=== PATIENT | female | born 1970 | race Two or more races ===

== ENCOUNTER 2021-08-26 09:56 | Emergency (ER) | payer MEDICAID, SELFPAY ==
[2021-08-26 10:11] VITALS: BP 196/94; PULSE 78; RESP 18; TEMP 37.1; O2SAT 99; BMI 36.1
[2021-08-26] MEDS: amLODIPine Besylate 5 MG TABLET PO (10:47)
--- NOTE | 2021-08-26 10:58 | ED.GENADULT ---
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 Patient admits to missing her dose of amlodipine this morning. Denies headache, lightheadedness/ dizziness, CP /SOB, vision changes, weakness. denies vision change/ loss, contacts or glasses wearing, I drainage. Admits was prescribed antibiotic eyedrops for eye Onset (ago): day(s) Related Data Allergies Allergy/AdvReac Type Severity Reaction Status Date / Time No Known Allergies Allergy Verified 08/26/21 10:10 Review of Systems Review of Systems: Constitutional: No Fever, No Chills, No Fatigue, No Malaise ENT/Mouth: No Ear Pain, No Nasal Congestion, No sore throat, No Rhinorrhea, No Swallowing Difficulty Eyes: + Eye Pain, + Swelling, No Redness, No Foreign Body, No Discharge, No Vision Changes Cardiovascular: No Chest Pain, No SOB, No Dyspnea on Exertion, No Orthopnea, No Edema, No Palpitations Respiratory: No Cough, No Sputum, No Dyspnea Gastrointestinal: No Nausea, No Vomiting, No Abdominal pain Genitourinary:No Dysuria, No Urgency, No Flank Pain Musculoskeletal: No joint pain, No Myalgias, No Joint Swelling Skin: No Skin Lesions, No rash Neuro: No Weakness, No Numbness, No Paresthesias, No Loss of Consciousness, No Dizziness, No Headache Yes all other systems are reviewed and are negative [facility] Past Medical History Attestation statement: The following information was validated with the patient. Social History Social History Alcohol intake: never Patient Tobacco Use Status: Never used Tobacco Use of substances other than those prescribed or required for medical reasons: No Advance Directives: No Advance Directives Information Provided: No Physical Exam ED Vital Signs: Vital Signs - 24 hr 08/26/21 10:11 Temperature 98.7 F Pulse Rate 78 Respiratory Rate 18 Blood Pressure 196/94 H Pulse Oximetry 99 BMI result Body Mass Index 36.1 Const General: cooperative, healthy appearing and no acute distress Orientation/consciousness: patient oriented x3 Limitations: no limitations HENMT Head: Yes normal to inspection and Yes atraumatic Ears: hearing grossly normal bilaterally General nose exam: Normal external nose present Face and sinus: Yes normal facial exam Eyes Other: + Left lower eyelid hordeolum with mild swelling and tenderness to palpation. No erythema/evidence of cellulitis. EOMs intact without pain. No eye drainage General: appearance normal, both eyes and all related structures Periorbital: periorbital findings normal Conjunctivae: conjunctivae normal Sclerae: sclerae normal Corneas: corneas normal Pupils: Equal, round and reactive pupils present EOM: EOMs intact bilaterally Direct Ophthalmoscopy: normal light reflex and no photophobia Neck Neck: Yes normal visual inspection and Yes no meningeal signs Resp Effort & Inspection: normal respiratory effort and no respiratory distress Auscultation: clear to auscultation bilaterally, no rales, no rhonchi and no wheezes Cardio Rate: regular rate Heart sounds: S1 normal heart sound present and S2 normal heart sound present GI Inspection: Yes normal to inspection Palpation (GI): Soft to palpation, nontender, no guarding and not rigid Skin Rashes: no rashes Wounds: no wounds Neuro General: patient oriented x3, gait normal, tone normal, moves all extremities, no meningeal signs, no focal motor deficits and CN's II-XI intact bilaterally Cranial nerves: Yes Equal, round and reactive pupils present Gait exam (Neuro): Normal gait present Extrem General: Yes normal to inspection Course Course Course Narrative: - patient given her home dose of p.o. Norvasc, blood pressure mildly improved to 188/98. Patient remains asymptomatic. Reports increased stress pertaining to father. Discussed with patient with data specialist needed close follow-up with PCP for repeat blood pressures consecutively for the next 3 days. 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 on exam hypertensive 196/94, asymptomatic without CP/headache or weakness, left eye hordeolum noted without evidence of superinfection. Low concern for hypertensive urgency / emergency, will give patient home dose of amlodipine heard patient was also are any prescribed antibiotic eyedrops. No evidence of periorbital or orbital cellulitis Medical Records Medical records reviewed: Yes I reviewed the patient's medical records. Lab Data Lab results reviewed: Yes I reviewed the patient's lab results. Discharge Plan Discharge Clinical Impression: Hypertension Patient Disposition: Home, Self-Care Instructions: Heart Healthy Diet (DC), Hypertension (ED) Additional Instructions: you need to take her blood pressure medication. Monitor blood pressure closely. Please follow-up with her doctor, however blood pressure repeated for the next 3 days. If he developed headache, chest pain, lightheadedness/ dizziness or weakness please return to the ED usted necesita shailesh dixon medicamento para la presi?n arterial. Controle la presi?n arterial de cerca. Shama un seguimiento con dixon m?dico, sin embargo, la presi?n arterial se repiti? dov los pr?ximos 3 d?as. Si desarroll? dolor de issac, dolor en el pecho, aturdimiento/mareos o debilidad, regrese al servicio de urgencias. Referrals: Physician,Fadumo J [Primary Care Provider] - 2 days
[2021-08-26 12:42] VITALS: BP 188/98; PULSE 73; RESP 18; O2SAT 98
== END 2021-08-26 13:23 | disposition home or self-care (01) ==
PROVIDERS: Emergency Provider Emergency Medicine
DX: R79.89 Other specified abnormal findings of blood chemistry (principal); I10 Essential (primary) hypertension; Z79.899 Other long term (current) drug therapy
CPT/HCPCS: 99283; 99284

== ENCOUNTER 2021-09-19 11:11 | Outpatient (REF) | payer MEDICAID, SELFPAY ==
--- NOTE | ~2021-09-19 | MM_ITS ---
EXAMINATION: MM SCREENING DIGITAL BREAST TOMOSYNTHESIS, BILATERAL CLINICAL INFORMATION: Screening. Asymptomatic. The lifetime risk of breast cancer based on the Tyrer-Cuzick Model is 5.4%. COMPARISON: Mammography: February 18, 2017 and studies dating back to March 27, 2011 TECHNIQUE: Digital breast tomosynthesis is performed in both the craniocaudal and mediolateral oblique views along with computer-aided detection (CAD). Synthesized 2D images are generated from the tomosynthesis. FINDINGS: There are scattered areas of fibroglandular density (ACR BI-RADS breast composition Category b). There are no significant masses, abnormal calcifications, or other abnormalities. MM/MM tomosynthesis screening BI IMPRESSION: There are no significant changes from prior study. ASSESSMENT: BI-RADS 1: Negative RECOMMENDATION: Routine annual mammography screening. This patient's information was entered into a reminder system with a target due date for their next mammogram.
== END 2021-09-19 11:12 | disposition home or self-care (01) ==
LOC: HO.MAMMO 11:11
PROVIDERS: PCP Registered Nurse Community Health; Visit Provider Registered Nurse Community Health
DX: Z12.31 Encounter for screening mammogram for malignant neoplasm of breast (principal)
CPT/HCPCS: 77063; 77067

== ENCOUNTER 2022-02-03 10:51 | Outpatient (REF) | payer MEDICAID, SELFPAY ==
[2022-02-04 13:29] LABS: H Pylori Breath Test Positive (Negative)
== END 2022-02-03 10:52 | disposition home or self-care (01) ==
LOC: CF 10:51
PROVIDERS: PCP Registered Nurse Community Health; Referring Provider Registered Nurse Community Health; Visit Provider Nurse Practitioner Family
DX: K59.00 Constipation, unspecified (principal); K21.9 Gastro-esophageal reflux disease without esophagitis; K59.04 Chronic idiopathic constipation; R10.9 Unspecified abdominal pain
CPT/HCPCS: 36415; 83013; 99202

== ENCOUNTER 2023-01-13 12:20 | Outpatient (REF) | payer MEDICAID, SELFPAY ==
[2023-01-13 14:16] LABS: Creatinine Urine 81.07 mg/dL; Microalbum/Creatinine Ratio Ur 9.8 ug/mg cr (<30)
[2023-01-13 14:44] LABS: CT PCR NOT DETECTED (Not Detect.); NG PCR NOT DETECTED (Not Detect.)
[2023-01-14 04:07] LABS: Syphilis Screen Nonreactive (Nonreactive)
[2023-01-14 05:21] LABS: HBsAGNum1 0.35 S/CO (0.00-0.99); HIV AB/AG Nonreactive (Nonreactive); HIV Num 1 0.07 S/CO (0.00-0.99); Hepatitis A Antibody IgM 0.14 Index (0-0.79); Hepatitis B Core Antibody Nonreactive (Nonreactive); Hepatitis B Surface Antigen Negative (Negative); ~HepC Num1 0.08 S/CO (0.00-0.79); ~Hepatitis A Antibody IgM Nonreactive (Nonreactive); ~Hepatitis B Surface Antibody REACTIVE (Nonreactive); ~Hepatitis C Antibody Nonreactive (Nonreactive)
== END 2023-01-13 12:21 | disposition home or self-care (01) ==
LOC: HO.HHCL 12:20
PROVIDERS: Visit Provider Registered Nurse
DX: Z11.3 Encounter for screening for infections with a predominantly sexual mode of transmission (principal); Z11.4 Encounter for screening for human immunodeficiency virus [HIV]; E11.65 Type 2 diabetes mellitus with hyperglycemia
CPT/HCPCS: 0353U; 82043; 82570; 86704; 86706; 86709; 86780; 86803; 87340; 87389

== ENCOUNTER 2023-02-01 18:55 | Outpatient (REF) | payer MEDICAID, SELFPAY ==
[2023-02-04 23:43] LABS: HPV mRNA E6/E7 rflx Not Detected (Not Detected)
== END 2023-02-01 18:56 | disposition home or self-care (01) ==
LOC: HO.HHCLNP 18:55
PROVIDERS: Visit Provider Registered Nurse
DX: Z12.4 Encounter for screening for malignant neoplasm of cervix (principal)
CPT/HCPCS: 87624; 88142

== ENCOUNTER 2023-11-24 11:16 | Outpatient (REF) | payer MEDICAID, SELFPAY ==
[2023-11-24 14:14] LABS: Alanine Aminotransferase 20 U/L (0-31); Albumin Level 4.3 g/dL (3.5-5.0); Alkaline Phosphatase 92 U/L (39-117); Anion Gap 10 (12-20); Aspartate Amino Transferase 16 U/L (5-31); Bilirubin Total 0.2 mg/dL (0.0-1.0); Blood Urea Nitrogen 20 mg/dL (9-16); Calcium 10.2 mg/dL (8.4-10.2); Carbon Dioxide 29 mmol/L (22-29); Chloride 104 mmol/L (96-108); Cholesterol 208 mg/dL (<200); Estimated Glomerular Filt Rate > 60; Glucose Random 83 mg/dL (60-115); HDL Cholesterol 37 mg/dL (>40); LDL Cholesterol Calculated 98 mg/dL (<100); Potassium 3.6 mmol/L (3.3-5.1); Sodium 139 mmol/L (135-145); Triglycerides 367 mg/dL (<150)
[2023-11-24 15:28] LABS: Reflex LDLD? No
== END 2023-11-24 11:17 | disposition home or self-care (01) ==
LOC: HO.HHCL 11:16
PROVIDERS: Visit Provider Internal Medicine
DX: Z00.00 Encounter for general adult medical examination without abnormal findings (principal)
CPT/HCPCS: 36415; 80053; 80061

== ENCOUNTER 2023-11-26 11:47 | Outpatient (REF) | payer MEDICAID, SELFPAY ==
--- NOTE | ~2023-11-26 | MM_ITS ---
EXAMINATION: MM SCREENING DIGITAL BREAST TOMOSYNTHESIS, BILATERAL CLINICAL INFORMATION: Screening. Asymptomatic. COMPARISON: Mammography: This study is compared with prior exams dating back to 2017. TECHNIQUE: Digital breast tomosynthesis is performed in both the craniocaudal and mediolateral oblique views along with computer-aided detection (CAD). Direct 2-D images of each breast in the standard screening projections are also obtained. FINDINGS: There are scattered areas of fibroglandular density (ACR BI-RADS breast composition Category b). There are no significant masses, abnormal calcifications, or other abnormalities. There are bilateral benign calcifications. MM/MM tomosynthesis screening BI IMPRESSION: No mammographic evidence of malignancy. ASSESSMENT: BI-RADS BI-RADS 2 - Benign Findings RECOMMENDATION: Routine annual mammography screening. 1 year F/U This examination should not preclude the clinical evaluation of a suspicious palpable abnormality. This patient's information was entered into a reminder system with a target due date for their next mammogram. Electronically signed by: Chyna Duarte MD 12/23/2023 12:20 PM EDT
== END 2023-11-26 11:48 | disposition home or self-care (01) ==
LOC: HO.MAMMO 11:47
PROVIDERS: PCP Registered Nurse Community Health; Visit Provider Internal Medicine
DX: Z12.31 Encounter for screening mammogram for malignant neoplasm of breast (principal)
CPT/HCPCS: 77063; 77067

== ENCOUNTER → 2023-11-26 12:15 | Outpatient (BNV) | payer MEDICAID, SELFPAY | PROVIDERS: PCP Registered Nurse Community Health; Visit Provider Radiology Diagnostic Radiology | DX: Z12.31 Encounter for screening mammogram for malignant neoplasm of breast (principal) | CPT/HCPCS: 77063; 77067 ==

== ENCOUNTER 2024-06-05 10:39 | Emergency (ER) | payer MEDICAID, SELFPAY ==
--- NOTE | ~2024-06-05 | US_ITS ---
CLINICAL HISTORY: RUQ pain Limited abdominal ultrasound Comparison: None Findings: The liver is normal in size, measuring 14.3 cm in length. Normal echogenicity without focal lesions. Hepatopetal flow is seen within the portal vein. The common bile duct is normal in diameter, measuring 0.3 cm. No cholelithiasis. There are tiny gallbladder polyps. No wall thickening or pericholecystic fluid. Negative sonographic Stone sign. The right kidney is normal in echogenicity and size, measuring 9.7 cm in length. Unremarkable limited evaluation of the pancreas. Impression: Negative for acute cholecystitis. This document has been electronically signed by: Jennifer Caraballo MD on 06/05/2024 14:36:44
[2024-06-05 11:07] VITALS: BP 146/79; PULSE 89; RESP 18; TEMP 36.6; O2SAT 9; BMI 34.6
--- NOTE | 2024-06-05 11:08 | ED.ABDPAIN ---
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 She then developed epigastric abd pain this AM and n/v x 1. She denies diarrhea. She has no sick contacts, no travel, no abx use. She denies CP/SOB. She has had palpitations before but she was worried about the abdominal pain and vomiting this AM. She did not take her GERD medication this AM. MD elicited complaint: abdominal pain (palpitations) Pertinent past history: other (GERD) Onset (ago): day(s) (last night) Pain Consistency: intermittent Location: epigastric Severity: moderate Quality: aching Radiation: none Migration to: no migration Exacerbating factors: eating Relieving factors: nothing Context: other (also had palpitations last night) Associated symptoms: nausea and vomiting Related Data Home Medications ?Medication ?Instructions ?Recorded ?Confirmed amlodipine 10 mg tablet 10 mg PO DAILY 02/03/22 atorvastatin 40 mg tablet 40 mg PO DAILY 02/03/22 cholecalciferol (vitamin D3) 25 25 mcg PO DAILY 02/03/22 mcg (1,000 unit) capsule (Vitamin D3) hydrochlorothiazide 25 mg tablet 25 mg PO DAILY 02/03/22 losartan 100 mg tablet 100 mg PO DAILY 02/03/22 metformin 500 mg tablet,extended 500 mg PO BID 02/03/22 release 24 hr Previous Rx's ?Medication ?Instructions ?Recorded docusate sodium 100 mg capsule 100 mg PO BEDTIME #90 caps 02/03/22 sennosides 8.6 mg tablet (Natural 8.6 mg PO BEDTIME constipation #90 02/03/22 Senna Laxative) tabs bismuth subsalicylate 262 mg 2 tab PO QID 14 days #112 tabs 02/06/22 chewable tablet metronidazole 500 mg tablet 1,000 mg (2 x 500 mg) PO BID #56 02/06/22 tabs tetracycline 500 mg capsule 1,000 mg (2 x 500 mg) PO Q12H #56 02/06/22 caps omeprazole 20 mg capsule,delayed 20 mg PO BID #180 caps 11/15/23 release ondansetron 4 mg disintegrating 4 mg PO Q8H PRN nausea and 06/05/24 tablet vomiting #20 tabs Allergies Allergy/AdvReac Type Severity Reaction Status Date / Time No Known Allergies Allergy Verified 06/05/24 11:08 Review of Systems Review of Systems Constitutional : No Weight loss, No Fever, No Chills ENT/Mouth : No sore throat, No Rhinorrhea Eyes: No Swelling, No Redness Cardiovascular : No Chest Pain, No SOB, No edema, pos palpitations Respiratory : No Cough, No Sputum, No Wheezing Gastrointestinal : Positive Nausea, Positive Vomiting, no Diarrhea, positive abdominal Pain, No Hematochezia, No Melena Genitourinary : No Dysuria, No Urinary Frequency, No Hematuria, No Urgency Musculoskeletal : No joint pain, No Myalgias, No Joint Swelling Skin : No Skin Lesions, No rash Neuro : No Weakness, No Numbness, No Dizziness, No Headache All other systems reviewed and are negative. [facility] Past Medical History Attestation statement: The following information was validated with the patient. Source: old records reviewed Medical History Diabetes mellitus HTN (hypertension) Hyperlipidemia Anemia GERD (gastroesophageal reflux disease) Surgical History Hx of section Family History Family History (Updated 02/03/22 @ 11:02 by Zi Dorado) Father Diabetes HTN (hypertension) High cholesterol Social History Social History Household Members: Significant Other Alcohol intake: never Patient Tobacco Use Status: Never used Tobacco Advance Directives: No Advance Directives Information Provided: Yes Do you have a plan to hurt others: No Plan Physical Exam ED Vital Signs: Vital Signs - 24 hr 06/05/24 11:07 Temperature 98 F Pulse Rate 89 Respiratory Rate 18 Blood Pressure 146/79 H Pulse Oximetry 9 L BMI result Body Mass Index 34.6 Appearance: Alert. Oriented X3. No acute distress. Eyes: Pupils equal, round and reactive to light. ENT: Pharynx normal. Neck: Normal inspection. Neck supple. CVS: Normal heart rate and rhythm. Pulses normal. Respiratory: No respiratory distress. Breath sounds normal. Abdomen: Soft and very mild RUQ ttp no rebound or guarding Skin: Skin warm and dry. Normal skin color. Extremities: No lower extremity edema. Neuro: Oriented X 3. No motor deficit. No sensory deficit. CN2-12 intact Course Course Course Narrative: This is an RME: Additional HPI, ROS, PE not included below will be deferred to primary provider. RME assessment and note performed by: Bernie Hernández PA-C This is a 54-year-old female, with a history of GERD, hyperlipidemia, anemia, and diabetes, who presents emergency department for evaluation of palpitations and epigastric pain since yesterday. Patient also reports nausea and vomiting, unable to keep anything down secondary to the nausea and vomiting. Also reporting a burning epigastric like pain. Plan: Labs, EKG, viral swabs, UA, further ER evaluation needed. Medical Decision Making Medical Decision Making [facility] Narrative: 54 yo woman with PMH of DM, HTN, HLD, anemia, GERD here with c/o palpitations last night while talking to mom then developed epigastric pain she has no sig ttp on exam given her age and risk factors will obtain EKG, troponin, given tachycardia I have ordered ddimer. She is not toxic appearing and is well appearing. She has no RLQ pain on exam. Differential Diagnosis Differential Diagnoses: The differential diagnosis associated with the presentation includes gastritis, GERD, biliary colic, palpitations Admission/Observation Consideration of admission/observation: Escalation of care including admission/observation considered mild bump in LFTs normal US negative trop, EKG unchanged, TSH normal ddimer negative mild bump in WBC count but could be due to elevated WBC count Lab Data [facility] Lab Attestation statement: I reviewed the patient's lab results. 06/05/24 11:32 06/05/24 11:32 Labs: Lab Results 06/05/24 06/05/24 Range/Units 11:32 14:06 WBC 13.4 H (4.8-10.8) X10*3/uL RBC 6.02 H (4.20-5.50) X10*6/uL Hgb 13.1 (12.0-16.0) g/dl Hct 42.3 (37.0-47.0) % MCV 70.3 L (80.0-98.0) fL MCH 21.8 L (27.0-33.0) pg MCHC 31.0 (31.0-35.0) g/dl RDW 16.2 H (11.0-16.0) % Plt Count 414 H (160-400) X10*3/uL MPV 9.2 L (9.4-12.3) fL Immature Gran % (Auto) 0.7 H (0.0-0.4) % Neut % (Auto) 84.1 H (45-73) % Lymph % (Auto) 8.8 L (20-40) % Rooks % (Auto) 5.4 (2-11) % Eos % (Auto) 0.7 (0-4) % Baso % (Auto) 0.3 (0-2) % Lymph # (Auto) 1.2 (1.2-4.9) X10*3/uL Rooks # (Auto) 0.7 (0.1-1.2) X10*3/uL Eos # (Auto) 0.1 (0.0-0.4) X10*3/uL Baso # (Auto) 0.0 (0.0-0.2) X10*3/uL Abs Immat Gran (auto) 0.10 H (0.00-0.03) X10*3/uL Absolute Neuts (auto) 11.2 H (2.0-8.3) x10*3/uL Absolute Nucleated RBC 0.000 (0.0-0.012) X10*3/uL Nucleated RBC % (auto) 0.0 (0.0-0.2) /100WBC D-Dimer High Sensitivty < 150 NG/ML Sodium 137 (135-145) mmol/L Potassium 4.0 (3.3-5.1) mmol/L Chloride 104 (96-108) mmol/L Carbon Dioxide 22 (22-29) mmol/L Anion Gap 15 (12-20) BUN 20 H (9-16) mg/dL Creatinine 0.92 (0.5-1.4) mg/dL Estim Creat Clear Calc 58.2 Estimated GFR > 60 Random Glucose 121 H (60-115) mg/dL Calcium 9.8 (8.4-10.2) mg/dL Magnesium 1.9 (1.6-2.6) mg/dL Total Bilirubin 0.3 (0.0-1.0) mg/dL Direct Bilirubin 0.1 (0.0-0.5) mg/dL AST 38 H (5-31) U/L ALT 34 H (0-31) U/L Alkaline Phosphatase 114 (39-117) U/L Troponin I High Sens < 2.7 (<3.5-17.0) ng/L Total Protein 8.9 H (6.5-8.0) g/dL Albumin 4.3 (3.5-5.0) g/dL Lipase 19 (8-78) U/L TSH 3.10 (0.32-4.0) uIU/mL Beta HCG, Quant 3 mIU/mL Influenza Type A (PCR) NEGATIVE (Negative) Influenza Type B (PCR) NEGATIVE (Negative) RSV RNA Qual (PCR) NEGATIVE (Negative) SARS-CoV-2 RNA (RT-PCR) NEGATIVE (Negative) Independent Interpretation I performed an independent interpretation of an: EKG and Ultrasound (no biliary colic) Interpretation: Rate: 85 Rhythm: NSR [place]: left Normal P waves. Normal ANAHI. Normal QRS complex. ST T wave : inverted t waves V1 and V1, no GALINA qTC: 456 prior studies: no acute ischemia no sig change from 2021 The study has been interpreted contemporaneously by me. . Radiology Impression Discussion of test interpretation with radiology: I have reviewed the radiologist's reading. External Record Review External record reviewed: Outpatient record Discharge Plan Discharge Clinical Impression: Heart palpitations Gastritis Qualifiers: Gastritis type: unspecified gastritis Chronicity: acute Gastritis bleeding: without bleeding Qualified Code(s): K29.00 - Acute gastritis without bleeding Patient Disposition: Home, Self-Care Instructions: Heart Palpitations (ED), Gastritis (ED) Additional Instructions: EKG unchanged labs reassuring negative blood clot test US no acute findings - mild bump in one liver enzyme can repeat with your doctor in one week negative for flu, covid, rsv return for any worsening symptoms or concerns stay hydrated and rest Prescriptions: New ondansetron 4 mg tablet,disintegrating 4 mg PO Q8H PRN (Reason: nausea and vomiting) Qty: 20 0RF No Action bismuth subsalicylate 262 mg tablet,chewable 2 tab PO QID 14 Days Qty: 112 0RF metronidazole 500 mg tablet 1,000 mg PO BID Qty: 56 0RF tetracycline 500 mg capsule 1,000 mg PO Q12H Qty: 56 0RF omeprazole 20 mg capsule,delayed release(DR/EC) 20 mg PO BID Qty: 180 2RF cholecalciferol (vitamin D3) [Vitamin D3] 25 mcg (1,000 unit) capsule 25 mcg PO DAILY metformin 500 mg tablet extended release 24 hr 500 mg PO BID losartan 100 mg tablet 100 mg PO DAILY hydrochlorothiazide 25 mg tablet 25 mg PO DAILY amlodipine 10 mg tablet 10 mg PO DAILY atorvastatin 40 mg tablet 40 mg PO DAILY docusate sodium 100 mg capsule 100 mg PO BEDTIME Qty: 90 3RF sennosides [Natural Senna Laxative] 8.6 mg tablet 8.6 mg PO BEDTIME Qty: 90 3RF Print Language: Eritrean
--- NOTE | 2024-06-05 11:09 | ECG_ITS ---
Test Reason : EPIGASTRIC/PALPITATIONS Blood Pressure : */* mmHG Vent. Rate : 85 BPM Atrial Rate : 85 BPM P-R Int : 160 ms QRS Dur : 80 ms QT Int : 384 ms P-R-T Axes : 31 -13 31 degrees QTcB Int : 456 ms Normal sinus rhythm Possible Anterolateral infarct , age undetermined Abnormal ECG When compared with ECG of 28-Jan-2009 18:56, Poor R wave progression across anterior leads Referred By: Bernie Hernández Electronically Signed By: VIVIANA TOPETE
[2024-06-05 11:36] LABS: MANUAL DIFF FLAG NO
[2024-06-05 11:37] LABS: Basophils Percent Auto 0.3 % (0-2); Eosinophils Absolute Auto 0.1 X10*3/uL (0.0-0.4); Eosinophils Percent Auto 0.7 % (0-4); Hematocrit 42.3 % (37.0-47.0); Hemoglobin 13.1 g/dl (12.0-16.0); Imm Gran Pct Auto 0.7 % (0.0-0.4); Lymphocytes Absolute Auto 1.2 X10*3/uL (1.2-4.9); Lymphocytes Percent Auto 8.8 % (20-40); Mean Corpuscular Hemoglobin 21.8 pg (27.0-33.0); Mean Corpuscular Volume 70.3 fL (80.0-98.0); Mean Platelet Volume 9.2 fL (9.4-12.3); Monocytes Absolute Auto 0.7 X10*3/uL (0.1-1.2); Monocytes Percent Auto 5.4 % (2-11); Neutrophils Absolute Auto 11.2 x10*3/uL (2.0-8.3); Neutrophils Percent Auto 84.1 % (45-73); Platelet Count 414 X10*3/uL (160-400); Red Blood Count 6.02 X10*6/uL (4.20-5.50); Red Cell Distribution Width 16.2 % (11.0-16.0); White Blood Count 13.4 X10*3/uL (4.8-10.8)
[2024-06-05 12:00] LABS: Troponin-I High Sensitivity < 2.7 ng/L (<3.5-17.0)
[2024-06-05 12:01] LABS: Alanine Aminotransferase 34 U/L (0-31); Albumin Level 4.3 g/dL (3.5-5.0); Alkaline Phosphatase 114 U/L (39-117); Anion Gap 15 (12-20); Aspartate Amino Transferase 38 U/L (5-31); Bilirubin Direct 0.1 mg/dL (0.0-0.5); Bilirubin Total 0.3 mg/dL (0.0-1.0); Blood Urea Nitrogen 20 mg/dL (9-16); Calcium 9.8 mg/dL (8.4-10.2); Carbon Dioxide 22 mmol/L (22-29); Chloride 104 mmol/L (96-108); Creatinine Clr Calc Pharmacy 58.2; Estimated Glomerular Filt Rate > 60; Glucose Random 121 mg/dL (60-115); HCG Quantitative 3 mIU/mL; Lipase 19 U/L (8-78); Magnesium 1.9 mg/dL (1.6-2.6); Sodium 137 mmol/L (135-145); Total Protein 8.9 g/dL (6.5-8.0)
[2024-06-05 12:30] LABS: Influenza A PCR NEGATIVE (Negative); Influenza B PCR NEGATIVE (Negative); Resp Syncy Virus RNA Qual PCR NEGATIVE (Negative); SARS COV2 PCR INHOUSE NEGATIVE (Negative)
[2024-06-05 14:22] LABS: D Dimer High Sensitivity < 150 NG/ML
[2024-06-05 15:12] VITALS: BP 133/87; PULSE 100; RESP 13; TEMP 36.7; O2SAT 98
[2024-06-05] MEDS: Lidocaine HCl Viscous 2 % 15 ML SOLUTION MUCOUS MEM (15:28)
[2024-06-05] MEDS: Magnesium Hydrox/Alum Hydrox 30 ML ORAL.SUSP 15 ML PO (15:28)
[2024-06-05] MEDS: Famotidine 20 MG TABLET PO (15:28)
[2024-06-05] MEDS: Ondansetron ODT 4 MG TAB.RAPDIS TRANSLINGU (15:28)
[2024-06-05 16:25] VITALS: BP 133/87; PULSE 100; RESP 13; TEMP 36.7; O2SAT 98
== END 2024-06-05 16:26 | disposition home or self-care (01) ==
PROVIDERS: Physician Assistant Medical; Emergency Provider Emergency Medicine; PCP Internal Medicine
DX: R00.2 Palpitations (principal); K29.00 Acute gastritis without bleeding; R10.13 Epigastric pain; Z79.899 Other long term (current) drug therapy; Z03.818 Encounter for observation for suspected exposure to other biological agents ruled out
CPT/HCPCS: 0241U; 36415; 76705; 80048; 80076; 83690; 83735; 84443; 84484; 84702; 85025; 85379; 93005; 99284

== ENCOUNTER → 2024-06-05 11:09 | Outpatient (BNV) | payer MEDICAID, SELFPAY | PROVIDERS: Emergency Provider Emergency Medicine; PCP Internal Medicine; Visit Provider Internal Medicine | DX: R94.31 Abnormal electrocardiogram [ECG] [EKG] (principal); R00.2 Palpitations | CPT/HCPCS: 93010 ==

== ENCOUNTER → 2024-06-05 13:20 | Outpatient (BNV) | payer MEDICAID, SELFPAY | PROVIDERS: Emergency Provider Emergency Medicine; PCP Internal Medicine; Visit Provider Radiology Diagnostic Radiology | DX: R10.11 Right upper quadrant pain (principal) | CPT/HCPCS: 76705 ==

== ENCOUNTER 2024-06-21 09:31 | Outpatient (REF) | payer MEDICAID, SELFPAY ==
[2024-06-21 12:14] LABS: Alanine Aminotransferase 23 U/L (0-31); Albumin Level 4.3 g/dL (3.5-5.0); Alkaline Phosphatase 103 U/L (39-117); Anion Gap 13 (12-20); Aspartate Amino Transferase 20 U/L (5-31); Bilirubin Total 0.3 mg/dL (0.0-1.0); Blood Urea Nitrogen 20 mg/dL (9-16); Calcium 10.2 mg/dL (8.4-10.2); Carbon Dioxide 27 mmol/L (22-29); Chloride 102 mmol/L (96-108); Cholesterol 188 mg/dL (<200); Estimated Glomerular Filt Rate > 60; Glucose Random 107 mg/dL (60-115); HDL Cholesterol 37 mg/dL (>40); LDL Cholesterol Calculated 88 mg/dL (<100); Potassium 3.6 mmol/L (3.3-5.1); Sodium 138 mmol/L (135-145); Total Protein 8.7 g/dL (6.5-8.0); Triglycerides 317 mg/dL (<150)
[2024-06-21 12:15] LABS: Creatinine Urine 118.05 mg/dL; Microalbum/Creatinine Ratio Ur 11.8 ug/mg cr (<30)
== END 2024-06-21 09:32 | disposition home or self-care (01) ==
LOC: HO.HHCL 09:31
PROVIDERS: Visit Provider Registered Nurse
DX: E11.65 Type 2 diabetes mellitus with hyperglycemia (principal)
CPT/HCPCS: 36415; 80053; 80061; 82043; 82570

== ENCOUNTER 2024-07-05 08:52 | Outpatient (AMB) | payer MEDICAID, SELFPAY ==
[2024-07-05 08:56] VITALS: BP 130/84; PULSE 99; BMI 35.8
--- NOTE | 2024-07-05 08:56 | MHC.OFFVIS ---
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,beard Intake Note: New patient dx palpitation c/o palpitations at times Vice President Client Services Required: Yes Vice President Client Services Services: Vice President Client Services Present Vice President Client Services Name: Osmar Vuong Allergies No Known Allergies Allergy (Verified 06/05/24 11:08) Medication List - Last Reconciled 07/05/24 by Abimael Acosta MD amlodipine 10 mg PO DAILY atorvastatin 40 mg PO DAILY chlorthalidone 25 mg PO QAM cholecalciferol (vitamin D3) (Vitamin D3) 25 mcg PO DAILY losartan 100 mg PO DAILY metformin ER 500 mg PO BID omeprazole 20 mg PO BID spironolactone 12.5 mg PO QAM HPI Comments Details: Belle was referred here for chest pain. I obtain history with help of program admin. She denies any chest pain however she says she gets symptoms of palpitations on a daily basis. She is currently taking care of her father who has multiple disabilities and says she gets stressed out. When she gets stress test she gets symptoms of palpitations where she feels rapid heart rate. Symptoms mostly happen during the late afternoon time. Symptoms can last up to 15-30 minutes. Symptoms associated with shortness of breath. No lightheadedness, syncope. No chest pain associated with it. Symptoms are very bothersome to her. Symptoms usually subside after she relaxes and has less stress. She was longstanding history of hypertension. When asked her with a she gets any history of chest pain she says no. She says she is pretty active and function but with exercise she gets exertional shortness of breath. Denies orthopnea, PND. Does attest to significant snoring at nighttime. She also says she gets significantly sleepy during the daytime. She has never been worked up for sleep apnea. She herself has never had any prior cardiac issues. She takes all her medications. Recently started on atorvastatin therapy. [facility], [facility] Medical History Diabetes mellitus HTN (hypertension) Hyperlipidemia Anemia GERD (gastroesophageal reflux disease) Surgical History Hx of section Family History Father Diabetes HTN (hypertension) High cholesterol Social History Household Members: Significant Other Alcohol intake: never Patient Tobacco Use Status: Never used Tobacco Review of Systems Const Denies chills, Denies daytime sleepiness, Denies fatigue, Denies fever(s), Denies frequent falls, Denies poor appetite, Denies snoring, Denies stops breathing during sleep, Denies weakness, Denies weight gain and Denies weight loss Eyes Denies loss of vision ENT Denies dizziness and Denies hearing loss Card Reports chest pain, Denies claudication, Denies leg edema, Denies lightheadedness, Denies palpitations, Denies dyspnea, Denies dyspnea on exertion and Denies orthopnea Resp Denies cough, Denies excessive phlegm production, Denies dyspnea, Denies dyspnea on exertion, Denies snoring and Denies wheezing GI Denies abdominal pain, Denies hematochezia, Denies change in bowel habits, Denies nausea and Denies vomiting Denies urinary frequency and Denies dysuria Musc Denies arthralgias, Denies muscle weakness, Denies numbness and Denies other (frequent falls) Skin/Breast Denies nail changes and Denies rash Neuro Denies Abnormal speech present, Denies dizziness, Denies frequent falls, Denies loss of vision, Denies memory loss, Denies numbness and Denies weakness Psych Denies depression and Denies memory loss Endo Denies fatigue and Denies palpitations Steve/Lymph Reports easy bruising and Reports other (anemia) Aller/Immun Denies wheezing Physical Exam Vital Signs: Last Vital Signs Pulse 99 07/05/24 08:56 BP 130/84 07/05/24 08:56 BMI result Body Mass Index 35.8 Const General: cooperative, comfortable, no acute distress, alert and awake Nutritional Appearance: obese Orientation/consciousness: patient oriented x3 Limitations: no limitations HEENT Head: Yes normocephalic and Yes atraumatic Neck Neck: Yes trachea midline, Yes supple and Yes no JVD Resp Effort & Inspection: normal respiratory effort Auscultation: diminished lung sounds Cardio Jugular venous distension: no JVD Palpation: normal PMI Rate: regular rate Rhythm: regular rhythm Heart sounds: S1 normal heart sound present, S2 normal heart sound present, no click, no gallops, no murmurs and no rubs GI Inspection: Yes obesity Auscultation: normal bowel sounds Skin General skin exam: no rashes or lesions noted Neuro General: patient oriented x3 and no focal motor deficits Speech: No Abnormal speech present Extrem General: Yes no clubbing, cyanosis or edema Office Procedures EKG Details: EKG shows normal sinus rhythm with Q-waves in lead 3 and AVF both could be due to body habitus as well as poor R-wave progression most likely lead placement body habitus. [id number], Complete Assessment & Plan Assessment & Plan (1) Heart palpitations: Code(s): R00.2 - Palpitations Category: Medical Plan: Symptoms of palpitation this middle-aged woman with longstanding history of hypertension with possible history of sleep apnea. Likely that she could have cardiac arrhythmias including high risk for atrial fibrillation. Will suggest a 7 day Holter monitor. Advised to avoid stimulants such as caffeine and alcohol. Stress mitigation strategies were discussed. Continue current blood pressure medication. I am not starting on any other medications at this point in time. Further treatment based on the finding of Holter monitor. Will also obtain an echocardiogram. (2) Exertional dyspnea: Code(s): R06.09 - Other forms of dyspnea Category: Medical Plan: Patient was exertional shortness of breath multiple risk factors including obesity, hypertension, diabetes as well as hyperlipidemia. Need to rule out obstructive coronary artery disease. Would suggest a myocardial perfusion imaging to assess for the same. Will also obtain echocardiogram to evaluate LV systolic and diastolic function to evaluate for hypertensive heart disease. These tests will be scheduled in near future. She also has high risk for obstructive sleep apnea given her body habitus as well as significant snoring and daytime somnolence. Will suggest a home sleep study for the same. Follow up in the clinic in 2 months time after above-mentioned test. Thank you for allowing me to partake in her care Orders: Orders ECG 7 day holter monitor Today R00.2 - Palpitations CA stress test Today R06.09 - Other forms of dyspnea NM cardiolite stress test 2 Weeks R06.09 - Other forms of dyspnea, R07.9 - Chest pain, unspecified CA echo transthoracic complete Today R06.09 - Other forms of dyspnea RT home sleep study Today R40.0 - Somnolence Coding Level of Care Code New Pt Level 4 (13593) Complex EM visit Add On G2211 Diagnoses Heart palpitations R00.2 Exertional dyspnea R06.09 CPT Codes EKG - CPT: 44316-[id number], Complete ([id number])
--- OUTSIDE RECORDS SUMMARY | 2024-07-05 09:46 | XMS_ITS | Encounter Summary ---
Author Organization [employer] Address [address] [place] [address] Care Team Providers Care Certified Pest Control Technician Name Role Phone [facility] Primary Care Provider [phone] Reason for Visit * Reason Onset Date Comments Results 06/23/2024 Encounter Details Date Type Department Care Team ([facility] Contact Info) Description 06/23/[address] [facility] MED[facility] [address], [place] [phone] [facility] [address], [place] [phone] Results Social History Tobacco Use Types Packs/Day Years Used Date Smoking Tobacco: Former Cigarettes Passive Smoke Exposure: Past Smokeless Tobacco: Never Alcohol Use Standard Drinks/Week Comments Never 0 (1 standard drink = 0.6 oz pur e alcohol) Depression Answer Date Recorded Patient Health Questionnaire-9 Score 0 06/21/2024 Patient Health Questionnaire-9 Score 0 06/21/2024 Last PHQ-9: Questionnaire Data Not on file 0 06/21/2024 Housing Stability Answer Date Recorded What is your housing situation today? I have scot delgadillo 02/01/[address] you li ve. Do you have problems with any of the following? None of the above 02/01/2023 Food Insecurity Answer Date Recorded Within the past 12 months, y ou worried that your food would run out before you got money to buy more: Never True 02/01/2023 Within the past 12 months,th e food you bought just didn't last and you didn't have enough money to get more: Never True Transportation Answer Date Recorded In the past 12 months, has l ack of transportation kept you from medical appts, meetings, work or from getting things needed for daily living? No 02/01/2023 Utilities Answer Date Recorded In the past 12 months, has t he electric, gas, oil or water company threatened to shut off services in your home? No 02/01/2023 Depression Answer Date Recorded Patient Health Questionnaire-2 Score 0 06/21/2024 Internet Access Answer Date Recorded Internet Access Q1 Yes 12/17/2023 Internet Access Q2 Not on file 12/17/2023 Comments Unknown Sex and Gender Information Value Date Recorded Sex Assigned at Female 02/16/2022 10:20 AM EDT Legal Sex Female 10:20 AM EDT Gender Identity Female 02/16/2022 10:20 AM EDT Sexual Orientation Choose not to disclose 2021 10:20 AM EDT documented as of this encounter Miscellaneous Notes * Telephone Encounter - Regina Cancino RN - 06/23/2024 5:06 PM EST TC placed to patient [phone] to inform of below message. Patient verbalized understanding and reports she has NOT been taking her atorvastatin medication ( in over a year and a half . Patient reports she only took it 2x when it was Rx'd and then stopped the medication because of stomach pain. Please review and advise on alternative medication. Thank you! ----- Message from [facility] sent at 06/23/2024 4:02 PM EST ----- Please let patient know that her labs were stable however her cholesterol was elevated. Was she fasting when she did the labs? Has she been taking her atorvastatin every day? Lets go ahead and increase her atorvastatin to 80 mg if she is tolerating well. Please queue. TY! documented in this encounter Plan of Treatment Upcoming Encounters Date Type Department Care Team (Late st Contact Info) Description 08/23/2024 10:00 AM EDT Office Visit [facility] OPTOM[facility] [address] [place] [address] Sun Parish, OD [address] [place] [address] 09/20/2024 10:00 AM EDT Office Visit [facility] MED[facility]INE [address] [place] [address] Faby Gil FNP [address] [place] [address] documented as of this encounter Visit Diagnoses Not on filedocumented in this encounter Additional Health Concerns Assessment Noted Time PHQ-9 Depression Total Score: 0 06/22/19 25 9:02 AM EST documented as of this encounter Care Teams Certified Pest Control Technician Relationship Specialty Start Date End Date Faby Gil FNP [address] [place] [address] PCP - General Family Medicine 12/15/21 documented as of this encounter
--- OUTSIDE RECORDS SUMMARY | 2024-07-05 09:46 | XMS_ITS | Clinical Summary ---
Author Organization [employer] Address [address] [facility] [address] [place] [address] Care Team Providers Care Bus Driver Name Role Phone Faby Gil MARSH BUGGY OPERATOR Primary Care Provider [phone] Allergies No known active allergies Medications Blood Glucose Monitoring Suppl (FreeStyle glucose monitoring) kitIndications:T ype 2 diabetes mellitus with hyperglycemia, without long-term current use of insulin (CMS/[facility]) Check blood sugar twice daily 1 each 023 Active sennosides (Senokot) 8.6 MG tablet Take 1 tablet by mouth if needed at bedtime. Active docusate sodium (Colace) 100 MG capsule Take 100 mg by mouth at bedtime. Active omeprazole (PriLOSEC) [address] capsule Take 20 mg by mouth 2 times daily. Do not crush or chew. Active fluticasone (Flonase) 50 MCG/ACT nasal sprayIndications :Seasonal allergies Administer 1 spray into each nostril in the morning. Shake gently. Before first use, prime pump. After use, clean tip and replace cap. 16 g 2 023 Active estradiol (Estrace) 0.1 MG/GM vaginal creamIndications :Vaginal atrophy Insert 500 mg intravaginally daily for 2 weeks, then decreased to 500 mg three times per week 42.5 g 12 023 Active glucose blood (FREESTYLE LITE) test stripIndications :Type 2 diabetes mellitus with hyperglycemia, without long-term current use of insulin (CMS/HCC) USE TO TEST BLOOD SUGAR TWICE DAILY 100 strip 11 024 Active Alcohol Swabs (Alcohol Prep) 70 % padsIndications: Type 2 diabetes mellitus with hyperglycemia, without long-term current use of insulin ([facility]) USE DIRECTED TO TEST BLOOD SUGAR TWICE DAILY 100 each Active TRUEplus Lancets 33G miscIndications: Type 2 diabetes mellitus with hyperglycemia, without long-term current use of insulin ([facility]) TEST BLOOD SUGAR TWICE DAILY 100 each 024 Active doxycycline (Vibramycin) 100 MG capsuleIndicatio ns:Rosacea Take 1 capsule (100 mg) by mouth 2 times daily. Take with at least 8 ounces (large glass) of water, do not lie down for 30 minutes after 60 capsule 1 Active metroNIDAZOLE (Metrogel) 0.75 % gelIndications:R osacea Apply topically 2 times daily. 45 g 2 024 2024 Active losartan (Cozaar) 100 MG tabletIndication s:Primary hypertension TAKE 1 TABLET BY MOUTH EVERY MORNING 90 tablet 3 024 Active spironolactone (Aldactone) 25 MG tabletIndication s:Primary hypertension TAKE 1/2 TABLET BY MOUTH EVERY MORNING 45 tablet 3 024 Active amLODIPine (Norvasc) 10 MG tablet TAKE 1 TABLET BY MOUTH AT BEDTIME 90 tablet 1 024 Active atorvastatin (Lipitor) 40 MG tabletIndication s:Mixed hyperlipidemia TAKE 1 TABLET BY MOUTH EVERY MORNING 90 tablet 1 025 Active D3-1000 25 MCG (1000 UT) capsuleIndicatio ns:Vitamin D deficiency TAKE 1 CAPSULE BY MOUTH EVERY MORNING 90 capsule 1 025 Active chlorthalidone (Hygroton) 25 MG tabletIndication s:Primary hypertension TAKE 1 TABLET BY MOUTH EVERY MORNING 90 tablet 1 025 Active metFORMIN XR (Glucophage-XR) 500 MG 24 hr tabletIndication s:Type 2 diabetes mellitus with hyperglycemia, without long-term current use of insulin ([facility]) Take 1 tablet (500 mg) by mouth 2 times daily. Do not crush, chew, or split. 360 tablet 3 025 Active polyethylene glycol, PEG, 3350 (MiraLax) 17 GM/SCOOP powderIndication s:Constipation, unspecified constipation type Take 17 g by mouth Once per day. 116 g 3 025 Active chlorthalidone (Hygroton) 25 MG tabletIndication s:Primary hypertension TAKE 1 TABLET BY MOUTH EVERY MORNING 90 tablet 1 024 2024 Discontinued D3-1000 25 MCG (1000 UT) capsuleIndicatio ns:Vitamin D deficiency TAKE 1 CAPSULE BY MOUTH EVERY MORNING 90 capsule 1 024 2024 Discontinued atorvastatin (Lipitor) 40 MG tabletIndication s:Mixed hyperlipidemia TAKE 1 TABLET BY MOUTH EVERY MORNING 90 tablet 1 024 2024 Discontinued metFORMIN XR (Glucophage-XR) 500 MG 24 hr tabletIndication s:Type 2 diabetes mellitus with hyperglycemia, without long-term current use of insulin (CMS/HCC) TAKE 2 TABLETS BY MOUTH TWICE DAILY IN THE MORNING AND AT BEDTIME 360 tablet 3 024 2024 Discontinued(R eorder (will not trigger notification to Pharmacy)) Active Problems Problem Noted Date Diagnosed Date Encounter for preventive health examination 10/2023 Assessment & Plan (11/24/2023 1:42 PM EDT): See HPI Colon cancer screening 11/24/2023 Breast cancer screening 11/24/2023 Rosacea 11/24/2023 Lesion of face 11/24/2023 Chronic pain of both feet 11/24/2023 Other chest pain 11/24/2023 Dyspnea on exertion 11/24/2023 Onychodystrophy 10/23/2022 Assessment & Plan (10/23/2022 10:35 AM EDT): ?? Toenail clippings obtained and sent for PAS. ?? Thumbnail represents a mixed-infection, subungually. . ?? She will trim thumb nail back at point of attachment and will soak in White Vinegar for 5 mins a day for one-month ?? Will notify patient when results become available. 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 Healthcare maintenance 05/14/2022 Overview (01/21/2023): Mammo: 09/2021, bi-rads 1 negative Pap: 09/2021, ASCUS HPV neg,had follow up with Dr. Gonzales. Need records. C-scope: Refereed 09/2022 for first colonosocpy Assessment & Plan (01/21/2023 11:18 AM EDT): Declines flu vaccine and COVID booster Assessment & Plan (10/13/2022 6:53 PM EDT): Will obtain updated [facility] records for hx of abnormal pap Assessment & Plan (06/08/2022 2:17 PM EST): Patient lost to follow up with GI. Will place new referral to day Hyperlipidemia 09/16/2021 Overview (05/14/2022): ?? Atorvastatin 40mg Assessment & Plan (01/21/2023 11:16 AM EDT): Continue current regimen Type 2 diabetes mellitus 09/16/2021 Overview (10/12/2022): ?? Metformin 1000mg XR b.i.d monotherapy ?? A1c 04/2022 8.9% ?? 07/2022-7.9% ?? Not interested in injectables Maintenance: ?? BMP: 05/2022 ?? Microalbumin: pending ?? Foot Exam: 08/2022, Risk 0 ?? Eye Exam: 04/2022, [facility] ?? Lipid panel: 05/2022 ?? ASCVD: 5.1% ?? Statin: Yes ?? ASA: No ?? ROMERO/ARB: Yes Encouraged regular aerobic exercise for improved glycemic control Encouraged daily foot checks Encouraged lean protein snacks and to avoid foods high in sugar and simple carbohydrates Treatment Goals: A1c goal: <7% FBG goal: <130 2 hour post prandial goal: <180 Assessment & Plan (11/24/2023 1:42 PM EDT): Diabetes is: controlled - Lab Results Component Value Date HGBA1C 6.3 (A) 11/24/2023 HGBA1C 6.4 (A) 01/13/2023 HGBA1C 6.7 (A) 10/12/2022 - Lab Results Component Value Date MICROALBUR 8.0 01/13/2023 CREATININE 0.97 05/29/2022 -Changes: none - Diabetic eye exam:up to date - Diabetic foot exam:referral to podiatry done today - Continue lifestyle modifications - Continue current medications - f/u with PCP Assessment & Plan (01/21/2023 11:17 AM EDT): Lab Results Component Value Date HGBA1C 6.4 (A) 01/13/2023 ?? Significant improvement with diet/exercise ?? Continue current regimen ?? Microalbumin ordered today Assessment & Plan (10/13/2022 6:50 PM EDT): Lab Results Component Value Date HGBA1C 6.7 (A) 10/12/2022 ?? Well controlled ?? Continue current regimen Assessment & Plan (08/30/2022 8:48 PM EDT): Lab Results Component Value Date HGBA1C 7.9 (H) 07/29/2022 ?? Continue current regimen; A1c improved from 8.9% in April. ?? DM foot exam completed today. Risk 0 Assessment & Plan (06/08/2022 2:14 PM EST): ?? Continue metformin 1000mg b.i.d ?? Will reapeat a1c in 1 month Assessment & Plan (05/17/2022 5:46 PM EST): ?? Restart metofrmin 500mg b.i.d; increase to 1000mg b.i.d if tolerating well after 2 weeks ?? Will start PA for semaglutide 3mg once daily Vitamin D deficiency 12/20/2014 Anemia 08/21/2013 Gastroesophageal reflux disease 08/21/2013 Hypertension 12/18/2011 Overview (08/30/2022): ?? Losartan 100mg ?? Chlorthalidone 25mg ?? Amlodipine 10mg ?? Spironolactone Maintenance: ?? BMP: 05/2022 WNL ?? Lipid Panel: 05/2022 ?? ASCVD Risk: 5.1% ?? EKG: Obtain baseline at f/u - Aerobic exercise to reduce BP. Initial goal of 30 min walk 3-5x/week. Increase as tolerated. - low-sodium diet (goal: <2g/day) and heart healthy diet such as DASH to reduce BP and prevent ASCVD. - Home BP monitoring 1-2 x day with goal of <140/90. - Seek immediate medical attention for chest pain, palpitations, SOB, syncope, or sudden changes in mental status. - Do not change or discontinue current prescriptions without first consulting health care provider Assessment & Plan (11/24/2023 1:40 PM EDT): Maintenance: BMP: ordered today Lipid Panel: ordered today ASCVD Risk: Calculate pending updated labs - Aerobic exercise to reduce BP. Initial goal of 30 min walk 3-5x/week. Increase as tolerated. - low-sodium diet (goal: <2g/day) and heart healthy diet such as DASH to reduce BP and prevent ASCVD. - Home BP monitoring 1-2 x day with goal of <140/90. - Seek immediate medical attention for chest pain, palpitations, SOB, syncope, or sudden changes in mental status. - Do not change or discontinue current prescriptions without first consulting health care provider Assessment & Plan (01/21/2023 11:17 AM EDT): ?? Continue current regimen ?? Repeat lipid panel and BMP at follow up Assessment & Plan (10/13/2022 6:49 PM EDT): ?? Well controlled continue current regimen Assessment & Plan (08/30/2022 8:49 PM EDT): ?? Well controlled ?? Continue current regimen Assessment & Plan (06/08/2022 2:07 PM EST): ?? Continue current regimen ?? Complete previously ordered labwork Assessment & Plan (05/17/2022 5:47 PM EST): ?? Continue current regimen ?? Complete previously ordered labwork Encounters Date Type Department Care Team Description 06/30/2024 Population Health Risk Score [facility] ([facility]) Department [address] [address] Provider, Population Health Generic 06/23/2024 Telephone [facility] [address] [place] [address] [facility] Results 06/21/2024 9:00 AM EST Office Visit [facility] [address] [place] [address] [facility] Type 2 diabetes mellitus with hyperglycemia, without long-term current use of insulin ([facility]) (Primary Dx); Constipation, unspecified constipation type; Ingrown toenail of right foot; Encounter for immunization; Dietary counseling; Exercise counseling; Class 1 obesity due to excess calories with serious comorbidity and body mass index (BMI) of 32.0 to 32.9 in adult 06/21/2024 Travel 06/05/2024 Orders Only GENERIC EXTERNAL DATA DEPARTMENT Provider, Generic External Data 06/04/2024 Refill [facility] [address] [place] [address] [facility] Mixed hyperlipidemia; Vitamin D deficiency; Primary hypertension from Last 3 Months Immunizations Name Administration Dates Next Due Hep B, adult 07/04/2015,09/28/2013,08/28/2013 Influenza injectable quadriv alent IIV4 with preservative 05/10/2017,07/04/2015 Influenza injectable quadriv alent preservative free 03/05/2022,06/04/2016 Influenza, IIV3, injectable 12/16/2010 Influenza, Split (incl. yolanda fied surface antigen) 12/18/2011 Influenza, seasonal, injecta ble, preservative free 06/21/2024 Pfizer Covid-19 Vaccine 12+ 11/14/2021 Pfizer Covid-19 Vaccine 12+ ulices-sucrose (Cobos Cap) 11/14/2021 Pneumococcal Conjugate PCV 20 12/16/2021 Tdap 03/05/2022,12/16/2009 Zoster, Recombinant 02/19/2022,12/16/2021 Family History Medical History Relation Name Comments Colon cancer Father's Brother Asthma Mother Coronary artery disease Mother Hypertension Mother Colon cancer Mother's Brother Breast cancer Other cousins on bot h sides Relation Name Status Comments Father's Brother Mother Mother's Brother Other Social History Tobacco Use Types Packs/Day Years Used Date Smoking Tobacco: Former Cigarettes Passive Smoke Exposure: Past Smokeless Tobacco: Never Tobacco Cessation:Counseling Given: Not Answered Alcohol Use Standard Drinks/Week Comments Never 0 (1 standard drink = 0.6 oz pur e alcohol) Depression Answer Date Recorded Patient Health Questionnaire-9 Score 0 06/21/2024 Patient Health Questionnaire-9 Score 0 06/21/2024 Last PHQ-9: Questionnaire Data Not on file 0 06/21/2024 Housing Stability Answer Date Recorded What is your housing situation today? I have scotbrendon delgadillo 02/01/[address] you [...] not to disclose 2021 10:20 AM EDT Last Filed Vital Signs Vital Sign Reading Time Taken Comments Blood Pressure 122/80 06/21/2024 8:50 AM EST Pulse 60 06/21/2024 8:50 AM EST Temperature 36.2 ??C (97.1 ??F) 06/21/2024 8:50 AM ES T Respiratory Rate 18 06/21/2024 8:50 AM EST Oxygen Saturation 98% 06/21/2024 8:50 AM EST Inhaled Oxygen Concentration - - Weight 75.4 kg (166 lb 3.2 oz) 06/21/2024 8:50 A M EST Height 152.4 cm (5') 06/21/2024 8:50 AM EST Body Mass Index 32.46 06/21/2024 8:50 AM EST Plan of Treatment Upcoming Encounters Date Type Department Care Team (Late st Contact Info) Description 08/23/2024 10:00 AM EDT [facility] Visit [facility] [address] [place] [address] Jem, Sun, OD [address] [place] [address] 09/20/2024 10:00 AM EDT Office Visit [facility] [address] [place] [address] [place], Faby, MARSH BUGGY OPERATOR [address] [place] [address] Health Maintenance Due Date Last Done Comments CT Colonography 1970 Colonoscopy 1971 Colorectal Cancer Screening 1970 Dental Oral Exam 1970 Dental Prophylaxis 1971 Dental X-Ray: Bitewings 1971 Dental X-Ray: Full Mouth 1971 FIT DNA/Cologuard 1971 FIT 1971 FOBT 1970 Sigmoidoscopy 1971 Alcohol/Substance Use Screening 1983 COVID-19 Vaccine ( season) 2023 11/14/2021, 11/14/2021 SDOH Screening 11/10/2024 11/11/2023 Mammogram 11/25/2024 11/26/2023, 060 06/2021, 09/17/2021 Diabetes: Hemoglobin A1C 12/22/2024 025, 11/24/2023, 01/13/2023, Additional history exists Depression Screening 06/21/2025 06/21/2024, 06/22/19 25 Diabetes: Foot Exam 06/21/2025 06/21/2024, 06/21/2024, 06/21/2024, Additional history exists Diabetes: Urine Protein Screening 06/21/2025 06/21/2024, 01/13/2023, 09/12/2021 Lipid Panel 06/21/2025 06/21/2024, 080 10/2023, 05/29/2022, Additional history exists Tobacco Screening 06/21/2025 06/21/2024 Eye Exam 07/08/2025 07/09/2023, 06/18, 07/09/2023, Additional history exists Cervical Cancer Screening 02/02/2028 HPV/Cotest 02/02/2028 02/01/2023, 09/18, 10/05/2016 Pap Smear 02/02/2028 02/01/2023, 09/18, 09/17/2021 DTaP/Tdap/Td Vaccines (3 - Td or Tdap) 03/05/2032 03/05/2022, 12/16/2009 RSV Patients and Patients Aged 60 years or older (1 - 1-dose 75+ series) 2046 Hepatitis B Vaccines Completed 07/04/2015, 09/28/2013, 08/28/2013 Pneumococcal Vaccine: 50+ Years Completed 12/16/2021 Zoster Vaccines Completed 02/19/2022, 12/16/2021 HIV Screening Completed 01/13/2023, 09/12/2021 Hepatitis C Screening Completed 01/13/2023, 022 Influenza Vaccine Completed 06/21/2024, , 05/10/2017, Additional history exists HIB Vaccines Aged Out No longer eligi ble based on patient's age to complete this topic HPV Vaccines Aged Out No longer eligi ble based on patient's age to complete this topic Hepatitis A Vaccines Aged Out No long er eligible based on patient's age to complete this topic IPV Vaccines Aged Out No longer eligi ble based on patient's age to complete this topic Meningococcal Vaccine Aged Out No ezekiel arina eligible based on patient's age to complete this topic RSV under 20 months Aged Out No longe r eligible based on patient's age to complete this topic Rotavirus Vaccines Aged Out No longer eligible based on patient's age to complete this topic Procedures Procedure Name Priority Date/Time Associated Diagnosis Comments LIPID PANEL, STANDARD Routine 06/21/2024 9:33 AM EST Type 2 diabetes mellitus with hyperglycemia, without long-term current use of insulin (CMS/HCC) COMPREHENSIVE METABOLIC PANEL Routine 06/21/2024 9:33 AM EST Type 2 diabetes mellitus with hyperglycemia, without long-term current use of insulin (CMS/HCC) ALBUMIN, RANDOM URINE W/CREATININE Routine 06/21/2024 9:33 AM EST Type 2 diabetes mellitus with hyperglycemia, without long-term current use of insulin (CMS/HCC) POCT GLUCOSE Routine 06/21/2024 9:02 AM EST Type 2 diabetes mellitus with hyperglycemia, without long-term current use of insulin (CMS/HCC) POCT GLYCATED HEMOGLOBIN, TOTAL Routine 06/21/2024 9:02 AM EST Type 2 diabetes mellitus with hyperglycemia, without long-term current use of insulin (CMS/HCC) US ABDOMEN LIMITED Routine 06/05/2024 2: 36 PM EST D DIMER HIGH SENSITIVITY Routine 06/05/2024 2:06 PM EST TSH W/REFLEX TO FT4 Routine 06/05/2024 1 1:32 AM EST HCG, TOTAL, QN Routine 06/05/2024 11:32 AM EST LIPASE Routine 06/05/2024 11:32 AM EST MAGNESIUM Routine 06/05/2024 11:32 AM EST BASIC METABOLIC PANEL Routine 06/05/2024 11:32 AM EST HEPATIC FUNCTION PANEL Routine 06/05/2024 11:32 AM EST HIGH SENSITIVITY TROPONIN I Routine 06/05/2024 11:32 AM EST CBC WITH AUTO DIFFERENTIAL Routine 06/05/2024 11:32 AM EST SARS COV2/INFLUENZA A/B AND RSV RNA QL NAAT Routine 06/05/2024 11:32 AM EST BI MAMMOGRAM SCREENING TOMOSYNTHESIS BILATERAL Routine 11/26/2023 12:00 PM EDT Encounter for screening mammogram for malignant neoplasm of breast HPV MRNA E6/E7 REFLEX TO HPV 16, 18/45 Routine 02/01/2023 11:15 AM EDT PAP SMEAR Routine 02/01/2023 11:15 AM EDT HEPATITIS PANEL, GENERAL Routine 01/13/2023 12:24 PM EDT Encounter for screening for infections with a predominantly sexual mode of transmission HIV ANTIBODY/ANTIGEN ([place] DPH) Routine 01/13/2023 12:24 PM EDT from Last 3 Months or Most Recently Relevant to Health Maintenance Results * Albumin, Random Urine W/Creatinine (06/21/2024 9:33 AM EST) Creatinine, Urine 118.05 mg/dL [facility] Microalbumin Urine 14.0 mg/L [facility] Microalbum Creatinine Ratio Ur 11.8 <30 ug/mg cr [facility] Comment:Albumin/Creatinine R atio Reference Ranges: Normal: < 30 ug/mg creatinine Microalbuminuria: 30 - 300 ug/mg creatinineClinical Albuminuria: > 300 ug/mg creatinine Urine 06/21/2024 9:33 AM EST 06/21/2024 11:25 AM EST [facility] URINE ORDERABLES Final Re sult Performing Organization Address [facility] Co de Phone Number [facility] [address] [place] [address] [phone] * (ABNORMAL) Lipid Panel, Standard (06/21/2024 9:33 AM EST) Triglycerides 317(H) <150 mg/dL [facility] Comment:Desirable Triglyceri de: less than 150 mg/dLBorderline High Triglyceride 150-199 mg/dLHigh Triglyceride: 200-499 mg/dLVery High Triglyceride: greater than or equal to 5OO mg/dL Cholesterol 188 <200 mg/dL [facility] Comment:Desirable Cholestero l: less than 200 mg/dLBorderline High Cholesterol: 200-239 mg/dLHigh Cholesterol: greater than 239 mg/dL LDL Cholesterol Calculated 88 <100 mg/dL [facility] Comment:Desirable LDL: less than 100 mg/dLNear Optimal/Above Optimal LDL: 110- 129 mg/dLBorderline High LDL: 130-159 mg/dLHigh LDL: 160-189 mg/dLVery High LDL: greater than or equal to 190 mg/dL HDL Cholesterol 37(L) >40 mg/dL [facility] Comment:Desirable HDL: great er than 40 mg/dL Note: This HDL assay may give artificially low results in patients with liver disease. Blood Venous blood specimen / Unknown 06/21/2024 9:33 AM EST 06/21/2024 11:30 AM EST [facility] BLOOD ORDERABLES Final Re sult Performing Organization Address City/[facility]/ZIP Co de Phone Number [facility] [address] [place] [address] [phone] * (ABNORMAL) Comprehensive Metabolic Panel (06/21/2024 9:33 AM EST) Sodium 138 135 - 145 mmol/L [facility] Potassium 3.6 3.3 - 5.1 mmol/L [facility] Chloride 102 96 - 108 mmol/L [facility] Carbon Dioxide 27 22 - 29 mmol/L [facility] Anion Gap 13 12 - 20 [facility] Urea Nitrogen (BUN) 20(H) 9 - 16 mg/dL [facility] Creatinine, Serum 0.83 0.5 - 1.4 mg/dL [facility] Estimated Glomerular Filt Rate >60 [facility] Comment:Chronic Kidney Disea se: Estimated GFR < 60 mL/min/[id number] Kidney Disease: Estimated GFR < 15 mL/min/1.73m2 Glucose 107 60 - 115 mg/dL [facility] Calcium 10.2 8.4 - 10.2 mg/dL [facility] Bilirubin, Total 0.3 0.0 - 1.0 mg/dL [facility] Aspartate Amino Transferase 20 5 - 31 U/L [facility] Alanine Aminotransferase 23 0 - 31 U/L [facility] Total Protein 8.7(H) 6.5 - 8.0 g/dL [facility] Albumin Level 4.3 3.5 - 5.0 g/dL [facility] Alkaline Phosphatase 103 39 - 117 U/L [facility] Blood Venous blood specimen / Unknown 06/21/2024 9:33 AM EST 06/21/2024 11:30 AM EST [facility] BLOOD ORDERABLES Final Re sult [facility] [address] [place] [address] [phone] * (ABNORMAL) POCT HGB A1C (06/21/2024 9:02 AM EST) Hemoglobin A1C 6.7(A) 4.0 - 6.0 % Blood 06/21/2024 9:02 AM EST [facility] POINT OF CARE TEST ENTER/EDIT ORDERABLES Final Result * POCT Glucose (06/21/2024 9:02 AM EST) Glucose Blood, POC 92 60 - 200 mg/dL Blood Capillary blood specimen / Unknown 06/21/2024 9:02 AM EST [facility] MARSH BUGGY OPERATOR POINT OF CARE TEST ENTER/EDIT ORDERABLES Final Result * US Abdomen Limited (06/05/2024 2:36 PM EST) Anatomical Region Laterality Modality Abdomen Ultrasound 06/05/2024 2:36 PM EST Narrative 06/05/2024 2:37 PM EST ? [facility] ?[address] ?[place] [address] ? Ultrasound Report ? Signed ? Patient: Belle Kenyon ?MR# ?? : [id number] ? : 1970 ?Acct:[id number] ? Age/Sex: 54 / F ?ADM Date: 06/05/24 ? Loc: HO.ED ? Attending Dr: ? Ordering Physician: Carmen Medeiros DO ?? Date of Service: 06/05/24 ?? Procedure(s): US abdomen limited ?? Accession Number(s): [id number] ? cc: Michelle King MD; Carmen Medeiros DO ? CLINICAL HISTORY: RUQ pain ? Limited abdominal ultrasound ? Comparison: None ? Findings: ?? The liver is normal in size, measuring 14.3 cm in length. Normal ?? echogenicity without focal lesions. Hepatopetal flow is seen within the ?? portal vein. ?? The common bile duct is normal in diameter, measuring 0.3 cm. ?? No cholelithiasis. There are tiny gallbladder polyps. No wall thickening ?? or pericholecystic fluid. Negative sonographic Stone sign. ?? The right kidney is normal in echogenicity and size, measuring 9.7 cm in ?? length. ?? Unremarkable limited evaluation of the pancreas. ? Impression: ?? Negative for acute cholecystitis. ? This document has been electronically signed by: Jennifer Caraballo MD ?? on 06/05/2024 14:36:44 ? Dictated By: ?Jennifer Murillo MD ? Signed By: ?<Electronically signed by Jennifer Murillo MD in OV> ? 06/05/241436 ? DD/ 35 ? TD/TT: 06/05/241435 ? Handtools Repairer: ? Procedure Note Donotrosettater, Image - 06/05/[address] [address] Ultrasound Report Signed Patient: Belle KenyonMR# : [id number] : 1970Acct:[id number] Age/Sex: 54 / FADM Date: 06/05/24 Loc: HO.ED Attending Dr: Ordering Physician: Carmen Medeiros DO Date of Service: 06/05/24 Procedure(s): US abdomen limited Accession Number(s): [id number] cc: Michelle King MD; Carmen Medeiros DO CLINICAL HISTORY: RUQ pain Limited abdominal ultrasound Comparison: None Findings: The liver is normal in size, measuring 14.3 cm in length. Normal echogenicity without focal lesions. Hepatopetal flow is seen within the portal vein. The common bile duct is normal in diameter, measuring 0.3 cm. No cholelithiasis. There are tiny gallbladder polyps. No wall thickening or pericholecystic fluid. Negative sonographic Stone sign. The right kidney is normal in echogenicity and size, measuring 9.7 cm in length. Unremarkable limited evaluation of the pancreas. Impression: Negative for acute cholecystitis. This document has been electronically signed by: Jennifer Caraballo MD on 06/05/2024 14:36:44 Dictated By: Jennifer Murillo MD Signed By: <Electronically signed by Jennifer Murillo MD in OV> 06/05/24 1437 DD/ 1436 TD/TT: 06/05/24 1436 Handtools Repairer: us [facility] External Provider IMG US PROCEDURES Final Result * D Dimer High Sensitivity (06/05/2024 2:06 PM EST) D Dimer High Sensitivity <150 NG/ML [facility] Comment:D-DIMER HS REFERENCE RANGENote: Our assay reports D-Dimer Units (D- DU).The cut-off value for venous thromboembolic (VTE) disease is230 ng/mL. This value has a very high negative predictivevalue when the patient has a low to moderate clinicalprobability of VTE.The upper limit of normal is 243 ng/mL. 06/05/2024 2:06 PM EST 06/05/2024 2:08 PM EST Generic External Data Provider LAB BLOOD ORDERAB LES Final Result Performing Organization Address [facility] de Phone Number [facility] [address] [place] [address] [phone] * High Sensitivity Troponin I (06/05/2024 11:32 AM EST) Pathologist [facility] TROPONIN I HIGH SENSITIVITY <2.7 <3.5 - 17.0 ng/L [facility] Comment:The Watson high sens itivity Troponin-I results should beused in conjunction with other diagnostic information suchas ECG, clinical observations and information, and patientsymptoms to aid in the diagnosis of [place]. 06/05/2024 11:3 2 AM EST 06/05/2024 11:35 AM EST Generic External Data Provider LAB BLOOD ORDERAB LES Final Result Performing Organization Address [facility] [place] Number [facility] [address] [place] [address] [phone] * TSH with Reflex to Free T4 (06/05/2024 11:32 AM EST) Pathologist [facility] TSH reflex Free T4 3.10 0.32 - 4.0 uIU/mL [facility] 06/05/2024 11:3 2 AM EST 06/05/2024 11:35 AM EST Generic External Data Provider LAB BLOOD ORDERAB LES Final Result Performing Organization Address [facility] de Phone Number [facility] [address] [place] [address] [phone] * SARS-CoV-2 RNA, Influenza A/B, and RSV RNA, Ql NAAT (06/05/2024 11:32 AM EST) Pathologist [facility] Influenza A PCR NEGATIVE Negative [facility] Influenza B PCR NEGATIVE Negative [facility] Resp Syncy Virus RNA Qual PCR NEGATIVE Negative [facility] SARS COV2 PCR NEGATIVE Negative [facility] Comment:All test results mus t be correlated with clinical findings.Negative results do not preclude SARS-CoV2, influenza Avirus, influenza B virus and/or RSV infectionand should not be used as the sole basis for treatment orother patient management decisions. Negative results must becombined with clinical observations, patient history, andepidemiological information.This test has not been evaluated for monitoring treatment ofinfection.This test has been authorized by the FDA under an EmergencyUse Authorization (EUA) for use by authorized laboratories.Testing performed on the QualQuant Signals GeneXpert utilizingreal-time RT-PCR.All SARS CoV2 and positive influenza A/B results arereported to [facility]. 06/05/2024 11:3 2 AM EST 06/05/2024 11:35 AM EST us Generic External Data Provider LAB MICROBIOLOGY - GENERAL ORDERABLES Final Result [facility] [address] [place] [address] [phone] * (ABNORMAL) CBC auto differential (06/05/2024 11:32 AM EST) Pathologist [facility] White Blood Count 13.4(H) 4.8 - 10.8 X10*3/uL [facility] Red Blood Count 6.02(H) 4.20 - 5.50 X10*6/uL [facility] Hemoglobin 13.1 12.0 - 16.0 g/dl [facility] Hematocrit 42.3 37.0 - 47.0 % [facility] Mean Corpuscular Volume 70.3(L) 80.0 - 98.0 fL [facility] Mean Corpuscular Hemoglobin 21.8(L) 27.0 - 33.0 pg [facility] Mean Corpuscular HGB Conc 31.0 31.0 - 35.0 g/dl [facility] Red Cell Distribution Width 16.2(H) 11.0 - 16.0 % [facility] Platelet Count 414(H) 160 - 400 X10*3/uL [facility] Mean Platelet Volume 9.2(L) 9.4 - 12.3 fL [facility] Neutrophils Percent Auto 84.1(H) 45 - 73 % [facility] Imm Gran Pct Auto 0.7(H) 0.0 - 0.4 % [facility] Lymphocytes Percent Auto 8.8(L) 20 - 40 % [facility] Monocytes Percent Auto 5.4 2 - 11 % [facility] Eosinophils Percent Auto 0.7 0 - 4 % [facility] Basophils Percent Auto 0.3 0 - 2 % [facility] NRBC Pct Auto 0.0 0.0 - 0.2 /100WBC [facility] Neutrophils Absolute Auto 11.2(H) 2.0 - 8.3 x10*3/uL [facility] Imm Gran Abs Auto 0.10(H) 0.00 - 0.03 X10*3/uL [facility] Lymphocytes Absolute Auto 1.2 1.2 - 4.9 X10*3/uL [facility] Monocytes Absolute Auto 0.7 0.1 - 1.2 X10*3/uL [facility] Eosinophils Absolute Auto 0.1 0.0 - 0.4 X10*3/uL [facility] Basophils Absolute Auto 0.0 0.0 - 0.2 X10*3/uL [facility] NRBC Abs Auto 0.000 0.0 - 0.012 X10*3/uL [facility] 06/05/2024 11:3 2 AM EST 06/05/2024 11:35 AM EST us Generic External Data Provider LAB BLOOD ORDERAB LES Final Result Performing Organization Address City/State/[facility] Co de Phone Number [facility] [address] [place] [phone] * hCG, Total, Quantitative (06/05/2024 11:32 AM EST) HCG Quantitative 3 mIU/mL [facility] Comment:Weeks post LMP Appro ximate hCG(Last Menstrual Period) Range (mIU/ml)3 - 4 weeks 9 - 1304 - 5 weeks 75 - 2,6005 - 6 weeks 850 - 20,8006 - 7 weeks 4000 - 100,2007 - 12 weeks 11,500 - 289,31646 - 16 weeks 18,300 - 137,53630 - 29 weeks (2nd trimester) 1,400 - 53,41804 - 41 weeks (3rd trimester) 940 - 60,000The Watson B-hCG assay is used for the early detection ofpregnancy; it cannot be used to diagnose any conditionunrelated to . If a B-hCG level is not supportedby the clinical evidence, results should be confirmed by analternative method (qualitative urine hCG, for example). 06/05/2024 11:3 2 AM EST 06/05/2024 11:35 AM EST us Generic External Data Provider LAB BLOOD ORDERAB LES Final Result Performing Organization Address [facility] Co de Phone Number [facility] [address] [place] [phone] * Magnesium (06/05/2024 11:32 AM EST) Magnesium 1.9 1.6 - 2.6 mg/dL [facility] 06/05/2024 11:3 2 AM EST 06/05/2024 11:35 AM EST Generic External Data Provider LAB BLOOD ORDERAB LES Final Result Performing Organization Address [facility] Co de Phone Number [facility] [address] [place] [phone] [phone] * Lipase (06/05/2024 11:32 AM EST) Lipase 19 8 - 78 U/L [facility] 06/05/2024 11:3 2 AM EST 06/05/2024 11:35 AM EST Generic External Data Provider LAB BLOOD ORDERAB LES Final Result Performing Organization Address [facility] Co de Phone Number [facility] [address] [place] [address] [phone] * (ABNORMAL) Hepatic Function Panel (06/05/2024 11:32 AM EST) Pathologist [facility] Bilirubin, Total 0.3 0.0 - 1.0 mg/dL [facility] Bilirubin, Direct 0.1 0.0 - 0.5 mg/dL [facility] Aspartate Amino Transferase 38(H) 5 - 31 U/L [facility] Comment:Slight Hemolysis.Int erpret result with caution. Alanine Aminotransferase 34(H) 0 - 31 U/L [facility] Total Protein 8.9(H) 6.5 - 8.0 g/dL [facility] Albumin Level 4.3 3.5 - 5.0 g/dL [facility] Alkaline Phosphatase 114 39 - 117 U/L [facility] 06/05/2024 11:3 2 AM EST 06/05/2024 11:35 AM EST Generic External Data Provider LAB BLOOD ORDERAB LES Final Result Performing Organization Address [facility] Co de Phone Number [facility] [address] [place] [address] [phone] * (ABNORMAL) Basic Metabolic Panel (06/05/2024 11:32 AM EST) Pathologist [facility] Sodium 137 135 - 145 mmol/L [facility] Potassium 4.0 3.3 - 5.1 mmol/L [facility] Comment:Slight Hemolysis.Int erpret result with caution. Chloride 104 96 - 108 mmol/L [facility] Carbon Dioxide 22 22 - 29 mmol/L [facility] Anion Gap 15 12 - 20 [facility] Urea Nitrogen (BUN) 20(H) 9 - 16 mg/dL [facility] Creatinine, Serum 0.92 0.5 - 1.4 mg/dL [facility] Creatinine Clr Calc Pharmacy 58.2 [facility] Comment:Provided height and weight: 144.78 cm,72.575 kg.eGFR (calculated from the MDRD study equation) and eCrCl(calculated from the Cockcroft-Gault equation) are based ondifferent parameters and may not yield comparable results.If eCrCl result is absurd, please check patient'sheight/weight. Estimated Glomerular Filt Rate >60 [facility] Comment:Chronic Kidney Disea se: Estimated GFR < 60 mL/min/1.04v3Zslwyc Kidney Disease: Estimated GFR < 15 mL/min/1.73m2 Glucose 121(H) 60 - 115 mg/dL [facility] Calcium 9.8 8.4 - 10.2 mg/dL [facility] 06/05/2024 11:3 2 AM EST 06/05/2024 11:35 AM EST us Generic External Data Provider LAB BLOOD ORDERAB LES Final Result [facility] [address] [place], [place] [phone] * BI Mammogram Screening Tomosynthesis Bilateral (11/26/2023 12:00 PM EDT) Anatomical Region Laterality Modality Breast Bilateral Mammography 11/26/2023 12:0 0 PM EDT Narrative 12/23/2023 12:23 PM EDT ? [facility] ? [address] ?[place] [address] ? Mammography Report ? Signed ? Patient: Careyshaunna Hansen,Belle ?MR# ?? : [id number] ? : 1970 ?Acct:[id number] ? Age/Sex: 53 / F ?ADM Date: 11/25/ ? Loc: HO.MAMMO ? Attending Dr: Michelle Roberto MD ? Ordering Physician: Michelle King MD ?Results: ?? 2Benign Findings ? Date of Service: 11/26/23 ?Follow Up: 1 Year From Orig ?? inal Mammogram ? Procedure(s): MM tomosynthesis screening BI ?? Accession Number(s): [id number] ? cc: Molly Pleitez DIRECTOR SPEECH AND HEARING; Michelle King MD ? EXAMINATION: ?? MM SCREENING DIGITAL BREAST TOMOSYNTHESIS, BILATERAL ? CLINICAL INFORMATION: ? Screening. Asymptomatic. ? COMPARISON: ?? Mammography: This study is compared with prior exams dating back to ? 2017. ? TECHNIQUE: ?? Digital breast tomosynthesis is performed in both the craniocaudal and ?? mediolateral oblique views along with computer-aided detection (CAD). ?? Direct 2-D images of each breast in the standard screening projections ?? are also obtained. ? FINDINGS: ?? There are scattered areas of fibroglandular density (ACR BI-RADS breast ?? composition Category b). ? There are no significant masses, abnormal calcifications, or other ?? abnormalities. ?? There are bilateral benign calcifications. ? MM/MM tomosynthesis screening BI ?? IMPRESSION: ?? No mammographic evidence of malignancy. ? ASSESSMENT: ? BI-RADS BI-RADS 2 - Benign Findings ? RECOMMENDATION: ?? Routine annual mammography screening. ? 1 year F/U ? This examination should not preclude the clinical evaluation of a ?? suspicious palpable abnormality. ? This patient's information was entered into a reminder system with a ?? target due date for their next mammogram. ? Electronically signed by: ??Chyna Duarte MD ??12/23/2023 12:20 PM EDT RP ? Dictated By: ?Chyna Duarte MD ? Signed By: ?<Electronically signed by Chyna Duarte MD in OV> ? 12/23/23 1220 ? DD/ 1200 ? TD/TT: 11/26/23 1216 ? Handtools Repairer: ? Procedure Note Donaylinter, [facility] [address] [place] [address] Mammography Report Signed Patient: Belle Kenyon# : [id number] : 1970Acct:[id number] Age/Sex: 53 / FADM Date: 11/26/23 Loc: HO.MAMMO Attending Dr: Michelle Roberto MD Ordering Physician: Michelle King MDResults: 2Benign Findings Date of Service: 11/26/23Follow Up: 1 Year From Orig inal Mammogram Procedure(s): MM tomosynthesis screening BI Accession Number(s): [id number] cc: Molly Pleitez DIRECTOR SPEECH AND HEARING; Michelle King MD EXAMINATION: MM SCREENING DIGITAL BREAST TOMOSYNTHESIS, BILATERAL CLINICAL INFORMATION: Screening. Asymptomatic. COMPARISON: Mammography: This study is compared with prior exams dating back to 2017. TECHNIQUE: Digital breast tomosynthesis is performed in both the craniocaudal and mediolateral oblique views along with computer-aided detection (CAD). Direct 2-D images of each breast in the standard screening projections are also obtained. FINDINGS: There are scattered areas of fibroglandular density (ACR BI-RADS breast composition Category b). There are no significant masses, abnormal calcifications, or other abnormalities. There are bilateral benign calcifications. MM/MM tomosynthesis screening BI IMPRESSION: No mammographic evidence of malignancy. ASSESSMENT: BI-RADS BI-RADS 2 - Benign Findings RECOMMENDATION: Routine annual mammography screening. 1 year F/U This examination should not preclude the clinical evaluation of a suspicious palpable abnormality. This patient's information was entered into a reminder system with a target due date for their next mammogram. Electronically signed by: Chyna Duarte MD 12/23/2023 12:20 PM EDT Dictated By: Chyna Duarte MD Signed By: <Electronically signed by Chyna Duarte MD in OV> 12/23/23 1220 DD/ 1200 TD/TT: 11/26/23 1216 Handtools Repairer: Michelle Roberto MD IMG BI PROCEDURES Caden jenn Result - Final * HPV mRNA E6/E7 w/Reflex to HPV Genotypes 16, 18/45 (02/01/2023 11:15 AM EDT) HPV nRNA E6/E7 Not Detected Not Detected [facility] Comment:Methodology: Transcr iption-Mediated AmplificationThis assay detects E6/E7 viral messenger RNA (mRNA) from 14high-risk HPV types (16,18,31,33,35,39,45,51,52,56,58,59,66,68).Cervical sources are required for HPV testing.If a vaginal source from a patient who has had atotal hysterectomy with removal of cervix wassubmitted, please contact the testing laboratoryfor alternative testing options.For additional information, please refer tohttp://education.[employer]/faq/GVQ635l1(This link if provided for information/educational purposes only.)THIS TEST WAS PERFORMED AT:[facility] [place] [phone] HULL MD HPV mRNA E6/E7 TNP [facility] HPV 16 RNA [facility] HPV 18/45 RNA [facility] 02/01/2023 11:1 5 AM EDT 02/02/2023 8:15 AM EDT [facility] ORDERABLES Final Result [facility] [address] [place] [address] [phone] * Pap Smear (02/01/2023 11:15 AM EDT) 02/01/2023 11:1 5 AM EDT 02/02/2023 8:15 AM EDT Narrative [facility] - 02/05/2023 1:23 PM EDT ----- ------- Name: Belle Kenyon ? Age/Sex: 52/F ? : 1970 Unit#: [id number] ?? Attend Dr: Faby GilP ?Re02/01/23 ?Status: DEP REF ? Location: HO.HHCLNP ? Disch: ? ----- ------- SPEC : [id number] ?RECD: 02/02/23 ? STATUS: ??SOUT ? REQ NUM: [id number] ? DOMINGO: 02/01/23 ? SUBM DR: Faby Gil ? ENTERED: ??02/02/23 ?SP TYPE: Pap Smr ?OTHR DR: ? ORDERED: ??Pap Smear ? Interpretation ?? Satisfactory for evaluation. ?? No endocervical cells seen. ?? Coccobacilli consistent with shift in vaginal jean-paul. ?? Negative for intraepithelial lesion or malignancy. ?HPV mRNA E6/E7: ?NOT DETECTED ? This assay detects E6/E7 viral messenger RNA (mRNA) from 14 high-risk HPV types (16, 18, ?? 31, 33, 35, 39, 45, 51, 52, 56, 58, 59, 66, 68) ?? HPV testing performed by [email or web address], [place], [place]. ??See reference laboratory ?? pion of the EMR for entire report. ?Clinical Information LMP: Postmenopausal Previous PAP test: Unknown date/findings Other history: Hx of abnormal pap within 3 years ? Material Received ?? ThinPrep-Cervical ----- ------- Signed (signature on file) MIKE Jett ([facility]) 02/05/23 1323 ? ----- ------- ? END OF REPORT ? [facility] CYTOLOGY ORDERABLES Final Result [facility] [address] [place] [address] [phone] * HIV Ab/Ag ([facility]) (01/13/2023 12:24 PM EDT) [facility] HIV AB/AG Nonreactive Nonreactive [facility] Comment:HIV-1 p24 Ag and/or HIV-1/HIV-2 Ab not detected.A test result that is nonreactive does not exclude thepossibility of exposure to or infection with HIV-1 and/orHIV-2. Nonreactive results in this assay for individualswith prior exposure to HIV-1 and/or HIV-2 may be due toantigen and antibody levels that are below the limit ofdetection of this assay.The [employer] HIV Ag/Ab Combo assay result andsupplemental assay results should be interpreted inconjunction with the patient's clinical presentation,history and other laboratory results. If the results areinconsistent with clinical evidence, additional testing issuggested to confirm the result. 01/13/2023 12:2 4 PM EDT 01/13/2023 3:53 PM EDT [facility] BLOOD ORDERABLES Final Re sult Performing Organization Address [facility] Co de Phone Number [facility] [address] [place] [address] [phone] * Hepatitis Panel, General (01/13/2023 12:24 PM EDT) Hepatitis A IgM Nonreactive Nonreactive [facility] Comment:IgM antibodies to [place] V not detected; does not exclude earlyacute or recovered HAV infection. ~Hepatitis B Surface Antibody REACTIVE Nonreactive [facility] Comment:REACTIVE: > 11.99 mI U/mL Hepatitis B Core Antibody Nonreactive Nonreactive [facility] Hepatitis C Antibody Nonreactive Nonreactive [facility] Comment:Antibodies to HCV no t detected; does not exclude early acuteHCV infection. Hepatitis B Surface Ag Negative Negative [facility] Blood 01/13/2023 12:2 4 PM EDT 01/13/2023 3:53 PM EDT [facility] BLOOD ORDERABLES Final Re sult Performing Organization Address [facility] Co de Phone Number [facility] [address] [place] [address] [phone] from Last 3 Months or Most Recently Relevant to Health Maintenance Insurance [facility] C3 HSN FULL DENTAL-[facility] MEDICAID STAND ADULT Care Teams Bus Driver Relationship Specialty Start Date End Date Faby Gil FNP [address] [place] [phone] PCP - General Family Medicine 12/15/21
--- OUTSIDE RECORDS SUMMARY | 2024-07-05 09:46 | XMS_ITS | Encounter Summary ---
Author Organization [employer] Address [address] [place] [address] Care Team Providers Care Degreasing Wheel Operator Name Role Phone [place] Faby SLASHER SAWYER Primary Care Provider [phone] Encounter Details Date Type Department Care Team (Latest Contact Info) Description 06/21/2024 Travel Social History Tobacco Use Types Packs/Day Years [...] AM EDT documented as of this encounter Plan of Treatment Upcoming Encounters Date Type Department Care Team (Late st Contact Info) Description 08/23/2024 10:00 AM EDT Office Visit [facility] OPTOMETRY [address] [place] [address] Jem, Sun, OD [address] [place] [address] 09/20/2024 10:00 AM EDT Office Visit [facility] MEDICINE [address] [place] [address] Faby Gil FNP [address] [place] [address] documented as of this encounter Visit Diagnoses Not on filedocumented in this encounter Additional Health Concerns Assessment Noted Time PHQ-9 Depression Total Score: 0 06/22/19 25 9:02 AM EST documented as of this encounter Care Teams Degreasing Wheel Operator Relationship Specialty Start Date End Date Faby Gil FNP [address] [place] [address] PCP - General Family Medicine 12/15/21 documented as of this encounter
--- OUTSIDE RECORDS SUMMARY | 2024-07-05 09:46 | XMS_ITS | Encounter Summary ---
Author Organization [employer] [facility] Address [address] [facility] [address] [place] [address] Care Team Providers Care Driver Lifter Of Sanitation Truck Name Role Phone [place] [facility] Primary Care Provider [phone] Reason for Visit * Reason Comments Med Refill Encounter Details Date Type Department Care Team ([facility] Contact Info) Description 10/09/2022 Refill [facility] MEDICINE [address] [place] [address] [facility] [address] [place] [address] Primary hypertension Social History Tobacco Use Types Packs/Day Years Used Date Smoking Tobacco: Former Cigarettes Smokeless Tobacco: Never Alcohol Use Standard Drinks/Week Comments Never 0 (1 standard drink = 0.6 oz pur e alcohol) Comments Unknown Sex and Gender Information Value Date Recorded Sex Assigned at Female 02/16/2022 10:20 AM EDT Legal Sex Female 10:20 AM EDT Gender Identity Female 02/16/2022 10:20 AM EDT Sexual Orientation Choose not to disclose 2021 10:20 AM EDT COVID-19 Exposure Response Date Recorded In the last 10 days, have yo u been in contact with someone who was confirmed or suspected to have Coronavirus/COVID-19? No / Unsure 10/12/2022 9:59 AM EDT documented as of this encounter Plan of Treatment Upcoming Encounters Date Type Department Care Team ([facility] Contact Info) Description 08/23/2024 10:00 AM EDT Office Visit [facility] OPTOMETRY [address] [place] [address] Sun Parish, OD [address] [place] [address] 09/20/2024 10:00 AM EDT Office Visit [facility] MED[facility]INE [address] [facility] [place] [address] Faby Gil FNP [address] [place] [address] documented as of this encounter Visit Diagnoses Diagnosis Primary hypertension Unspecified essential hypertension documented in this encounter Additional Health Concerns Assessment Noted Time PHQ-9 Depression Total Score: 0 08/28/19 23 2:12 PM EDT documented as of this encounter Care Teams Driver Lifter Of Sanitation Truck Relationship Specialty Start Date End Date Faby Gil FNP [address] [place] [address] PCP - General Family Medicine 12/15/21 documented as of this encounter
--- OUTSIDE RECORDS SUMMARY | 2024-07-05 09:46 | XMS_ITS | Encounter Summary ---
Author Organization [facility] Address [address] [place] [address] [facility] [place] [address] Care Team Providers Care Transportation Analyst Name Role Phone Faby Gil Primary Care Provider [phone] Reason for Referral * Consultation (Routine) - Authorized Specialty Diagnoses / Procedures Referred By Vanessa petersen Referred To Contact Podiatry Diagnoses Type 2 diabetes mellitus with hyperglycemia, without long-term current use of insulin (CMS/HCC) Ingrown toenail of right foot Faby Gil FNP [address] [place] [address] Phone: tel: fax: Saulo Ramirez DPM [address] [place] [address] [place] [address] Phone: tel: fax: Referral ID Status Reason Start Date Expiration Date Visits Requested Visits Authorized [id number] Authorized Specialty Services Required 06/21/2024 06/21/2025 6 6 Reason for Visit * Reason Comments Follow-up Diabetes Encounter Details Date Type Department Care Team ([facility] st Contact Info) Description 06/21/2024 9:00 AM EST Office Visit [facility] MEDICINE [address] [place] [address] Faby Gil FNP [address] [place], [place] Type 2 diabetes mellitus with hyperglycemia, without long-term current use of insulin (CMS/HCC) (Primary Dx); Constipation, unspecified constipation type; Ingrown toenail of right foot; Encounter for immunization; Dietary counseling; Exercise counseling; Class 1 obesity due to excess calories with serious comorbidity and body mass index (BMI) of 32.0 to 32.9 in adult Social History Tobacco Use Types Packs/Day Years [...] AM EDT documented as of this encounter Last Filed Vital Signs Vital Sign Reading [...] Mass Index 32.46 06/21/2024 8:50 AM EST documented in this encounter Progress Notes * [facility], [facility] - 06/21/2024 9:00 AM EST SUBJECTIVE: Belle Hansen is a 54 y.o. year old female T2DM, HTN, and HLD who presents for DM followup . Interval History Seen at [facility] 06/05/2024 with acute abdominal pain and vomiting. Negative abdominal ultrasound, negative ACS eval. Labs with mild liver enzyme elevation and leukocytosis. Discharged with Zofran.--Today reports symptoms have largely improved, struggling with constipation. Last BM 3 days ago Saw [facility] Derm for rosacea. Doing MetroGel twice daily and doxycycline for 1 month then for flares Eye exam 08/2023 [facility] Pap completed 01/2023 NIL HPV neg - Increased stress, d/t new apartment being far away from Dad whom she care takes for T2DM- take metfomrin 500mg b.I. 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 Tobacco Use: Former, quit 5 years ago Alcohol Use: None Marijuana Use: None Other drug use: None Patient Active Problem List Diagnosis Anemia Gastroesophageal reflux disease Hyperlipidemia Hypertension Type 2 diabetes mellitus (CMS/HCC) Vitamin D deficiency Healthcare maintenance Class 1 obesity due to excess calories with serious comorbidity and body mass index (BMI) of 34.0 to 34.9 in adult Symptomatic irreversible pulpitis Onychodystrophy Encounter for preventive health examination Colon cancer screening Breast cancer screening Rosacea Lesion of face Chronic pain of both feet Other chest pain Dyspnea on exertion Past Surgical History: Procedure Laterality Date SECTION, CLASSIC Family History Problem Relation Name Age of Onset Coronary artery disease Mother Hypertension Mother Asthma Mother Colon cancer Mother's Brother Colon cancer Father's Brother Breast cancer Other cousins on both sides Review of Systems Constitutional: Negative for fatigue, fever and unexpected weight change. Eyes: Negative for visual disturbance. Respiratory: Negative for apnea, chest tightness and shortness of breath. Cardiovascular: Negative for chest pain, palpitations and leg swelling. Gastrointestinal: Positive for constipation. Neurological: Negative for dizziness, light-headedness and headaches. OBJECTIVE: Vitals: 06/21/24 0850 BP: 122/80 Pulse: 60 Resp: 18 Temp: 97.1 ??F (36.2 ??C) SpO2: 98% Physical Exam Constitutional: General: She is not in acute distress. Appearance: Normal appearance. HENT: Head: Normocephalic and atraumatic. Right Ear: External ear normal. Left Ear: External ear normal. Nose: Nose normal. Eyes: Conjunctiva/sclera: Conjunctivae normal. Cardiovascular: Rate and Rhythm: Normal rate and regular rhythm. Pulses: Dorsalis pedis pulses are 2+ on the right side and 2+ on the left side. Posterior tibial pulses are 2+ on the right side and 2+ on the left side. Heart sounds: Normal heart sounds. Pulmonary: Effort: Pulmonary effort is normal. Breath sounds: Normal breath sounds. Musculoskeletal: Right foot: Normal range of motion. No deformity. Left foot: Normal range of motion. No deformity. Feet: Right foot: Protective Sensation: 10 sites tested. 10 sites sensed. Skin integrity: Skin integrity normal. Toenail Condition: Right toenails are ingrown. Left foot: Protective Sensation: 10 sites tested. 7 sites sensed. Skin integrity: Skin integrity normal. Toenail Condition: Left toenails are normal. Comments: Mild loss of protective sensation worse on left foot, ingrown toenail first digit right foot Skin: General: Skin is warm and dry. Neurological: General: No focal deficit present. Mental Status: She is alert and oriented to person, place, and time. Psychiatric: Mood and Affect: Mood normal. Behavior: Behavior normal. ASSESSMENT/PLAN T2DM Lab Results Component Value Date HGBA1C 6.7 (A) 06/21/2024 HGBA1C 6.3 (A) 11/24/2023 HGBA1C 6.4 (A) 01/13/2023 Lab Results Component Value Date MICROALBUR 8.0 01/13/2023 CREATININE 0.92 06/05/2024 -Continue metformin 500 mg twice daily -Routine labs ordered - Statin: Yes - ASA: No - Jaron/Arb: Yes -Foot exam completed today with mild loss of protective sensation, ingrown toenail will refer to podiatry -Up-to-date on eye exam - Encouraged regular aerobic exercise within initial goal of 30 minute walk 3x/week - Encouraged balanced diet with a variety of fruits, vegetables, and lean meats. Constipation -Lifestyle recommendations advised - Trial MiraLAX 1-2 times daily - ED precautions advised contact Health Center if symptoms worsen or do not improve with treatment [facility] Up-to-date on Pap, mammo Overdue for colon cancer screening. Was previously referred for a colonoscopy but was unable to tolerate bowel prep. She has a Cologuard kit at home she will check the expiration date and if needed contact Health Center for new order Less than 11-pkhv-wqod smoking history, not candidate for lung CT screening Accepts flu vaccine, declines COVID Diagnosis Plan 1. Type 2 diabetes mellitus with hyperglycemia, without long-term current use of insulin ([facility]) Albumin, Random Urine W/Creatinine Comprehensive Metabolic Panel Lipid Panel, Standard Albumin, Random Urine W/Creatinine Comprehensive Metabolic Panel Lipid Panel, Standard POCT HGB A1C POCT Glucose metFORMIN XR (Glucophage-XR) 500 MG 24 hr tablet Referral to Podiatry Referral to Podiatry 2. Constipation, unspecified constipation type polyethylene glycol, PEG, 3350 (MiraLax) 17 GM/SCOOPpowder 3. Ingrown toenail of right foot Referral to Podiatry Referral to Podiatry 4. Encounter for immunization FLU VACCINE TRIVALENT (Fluarix) 6 mo + 5. Dietary counseling 6. Exercise counseling 7. Class 1 obesity due to excess calories with serious comorbidity and body mass index (BMI) of 32.0 to 32.9 in adult Follow Up: 3 months, routine Current Outpatient Medications on File Prior to Visit Medication Sig Dispense Refill Alcohol Swabs (Alcohol Prep) 70 % pads USE DIRECTED TO TEST BLOOD SUGAR TWICE DAILY 100 each 11 amLODIPine (Norvasc) 10 MG tablet TAKE 1 TABLET BY MOUTH AT BEDTIME 90 tablet 1 atorvastatin (Lipitor) 40 MG tablet TAKE 1 TABLET BY MOUTH EVERY MORNING 90 tablet 1 Blood Glucose Monitoring Suppl (FreeStyle glucose monitoring) kit Check blood sugar twice daily 1 each 0 chlorthalidone (Hygroton) 25 MG tablet TAKE 1 TABLET BY MOUTH EVERY MORNING 90 tablet 1 D3-1000 25 MCG (1000 UT) capsule TAKE 1 CAPSULE BY MOUTH EVERY MORNING 90 capsule 1 docusate sodium (Colace) 100 MG capsule Take 100 mg by mouth at bedtime. doxycycline (Vibramycin) 100 MG capsule Take 1 capsule (100 mg) by mouth 2 times daily. Take with at least 8 ounces (large glass) of water, do not lie down for 30 minutes after 60 capsule 1 estradiol (Estrace) 0.1 MG/GM vaginal cream Insert 500 mg intravaginally daily for 2 weeks, then decreased to 500 mg three times per week 42.5 g 12 fluticasone (Flonase) 50 MCG/ACT nasal spray Administer 1 spray into each nostril in the morning. Shake gently. Before first use, prime pump. After use, clean tip and replace cap. 16 g 2 glucose blood (FREESTYLE LITE) test strip USE TO TEST BLOOD SUGAR TWICE DAILY 100 strip 11 losartan (Cozaar) 100 MG tablet TAKE 1 TABLET BY MOUTH EVERY MORNING 90 tablet 3 metFORMIN XR (Glucophage-XR) 500 MG 24 hr tablet TAKE 2 TABLETS BY MOUTH TWICE DAILY IN THE MORNINGAND AT BEDTIME 360 tablet 3 metroNIDAZOLE (Metrogel) 0.75 % gel Apply topically 2 times daily. 45 g 2 omeprazole (PriLOSEC) [address] capsule Take 20 mg by mouth 2 times daily. Do not crush or chew. sennosides (Senokot) 8.6 MG tablet Take 1 tablet by mouth if needed at bedtime. spironolactone (Aldactone) 25 MG tablet TAKE 1/2 TABLET BY MOUTH EVERY MORNING 45 tablet 3 TRUEplus Lancets 33G [facility] TEST BLOOD SUGAR TWICE DAILY 100 each 11 No current facility-administered medications on file prior to visit. Australian Translation: Provided by [facility] staff member OMER Yang documented in this encounter Plan of Treatment Upcoming Encounters Date Type Department Care Team (Late st Contact Info) Description 08/23/2024 10:00 AM EDT Office Visit [facility] OPTOMETRY [address] [place], [place] [id number] Jem, Sun, OD [address] [place] [address] 09/20/2024 10:00 AM EDT Office Visit [facility] MEDICINE [address] [place] [address] Jeffery, Faby, SUPERVISOR GLUING [address] [place] [address] Scheduled Referrals Name Type Priority Associated Diagnoses Orde r Schedule Referral to Podiatry Outpatient Referral Routine Type 2 diabetes mellitus with hyperglycemia, without long-term current use of insulin ([facility]) Ingrown toenail of right foot Expected: 06/21/2024 (Approximate), Expires: 06/21/2025 documented as of this encounter Procedures Procedure Name Priority Date/Time Associated Diagnosis Comments ALBUMIN, RANDOM URINE W/CREATININE Routine 06/21/2024 9:33 AM EST Type 2 diabetes mellitus with hyperglycemia, without long-term current use of insulin ([facility]) LIPID PANEL, STANDARD Routine 06/21/2024 9:33 AM EST Type 2 diabetes mellitus with hyperglycemia, without long-term current use of insulin ([facility]) COMPREHENSIVE METABOLIC PANEL Routine 06/21/2024 9:33 AM EST Type 2 diabetes mellitus with hyperglycemia, without long-term current use of insulin ([facility]) POCT GLYCATED HEMOGLOBIN, TOTAL Routine 06/21/2024 9:02 AM EST Type 2 diabetes mellitus with hyperglycemia, without long-term current use of insulin ([facility]) POCT GLUCOSE Routine 06/21/2024 9:02 AM EST Type 2 diabetes mellitus with hyperglycemia, without long-term current use of insulin ([facility]) documented in this encounter Results * (ABNORMAL) Lipid Panel, Standard (06/21/2024 9:33 AM EST) Triglycerides 317(H) <150 mg/dL [facility] Comment:Desirable Triglyceri de: less than 150 mg/dLBorderline High Triglyceride 150-199 mg/dLHigh Triglyceride: 200-499 mg/dLVery High Triglyceride: greater than or equal to 5OO mg/dL Cholesterol 188 <200 mg/dL [facility] Comment:Desirable Cholestero l: less than 200 mg/dLBorderline High Cholesterol: 200-239 mg/dLHigh Cholesterol: greater than 239 mg/dL LDL Cholesterol Calculated 88 <100 mg/dL [facility] Comment:Desirable LDL: less than 100 mg/dLNear Optimal/Above Optimal LDL: 110- 129 mg/dLBorderline High LDL: 130-159 mg/dLHigh LDL: 160-189 mg/dLVery High LDL: greater than or equal to 190 mg/dL HDL Cholesterol 37(L) >40 mg/dL [facility] Comment:Desirable HDL: great er than 40 mg/dL Note: This HDL assay may give artificially low results in patients with liver disease. Blood Venous blood specimen / Unknown 06/21/2024 9:33 AM EST 06/21/2024 11:30 AM EST [facility] SUPERVISOR [employer]UING LAB BLOOD ORDERABLES Final Re sult [facility] [address] [place] [phone] * (ABNORMAL) Comprehensive Metabolic Panel (06/21/2024 9:33 AM EST) Sodium 138 135 - 145 mmol/L [facility] Potassium 3.6 3.3 - 5.1 mmol/L [facility] Chloride 102 96 - 108 mmol/L [facility] Carbon Dioxide 27 22 - 29 mmol/L [facility] Anion Gap 13 12 - 20 [facility] Urea Nitrogen (BUN) 20(H) 9 - 16 mg/dL [facility] Creatinine, Serum 0.83 0.5 - 1.4 mg/dL [facility] Estimated Glomerular Filt Rate >60 [facility] Comment:Chronic Kidney Disea se: Estimated GFR < 60 mL/min/1.72e7Asczjw Kidney Disease: Estimated GFR < 15 mL/min/1.73m2 Glucose 107 60 - 115 mg/dL [facility] Calcium 10.2 8.4 - 10.2 mg/dL [facility] Bilirubin, Total 0.3 0.0 - 1.0 mg/dL [facility] Aspartate Amino Transferase 20 5 - 31 U/L [facility] Alanine Aminotransferase 23 0 - 31 U/L [facility] Total Protein 8.7(H) 6.5 - 8.0 g/dL [facility] Albumin Level 4.3 3.5 - 5.0 g/dL [facility] Alkaline Phosphatase 103 39 - 117 U/L [facility] Blood Venous blood specimen / Unknown 06/21/2024 9:33 AM EST 06/21/2024 11:30 AM EST [facility] LAB BLOOD ORDERABLES Final Re sult Performing Organization Address [facility] Co de Phone Number [facility] [address] [place] [phone] * Albumin, Random Urine W/Creatinine (06/21/2024 9:33 AM EST) Creatinine, Urine 118.05 mg/dL [facility] Microalbumin Urine 14.0 mg/L [facility] Microalbum Creatinine Ratio Ur 11.8 <30 ug/mg cr [facility] Comment:Albumin/Creatinine R atio Reference Ranges: Normal: < 30 ug/mg creatinine Microalbuminuria: 30 - 300 ug/mg creatinineClinical Albuminuria: > 300 ug/mg creatinine Urine 06/21/2024 9:33 AM EST 06/21/2024 11:25 AM EST [facility] LAB URINE ORDERABLES Final Re sult Performing Organization Address [facility]/ZIP Co de Phone Number [facility] [address] [place] [phone] * POCT Glucose (06/21/2024 9:02 AM EST) Glucose Blood, POC 92 60 - 200 mg/dL Blood Capillary blood specimen / Unknown 06/21/2024 9:02 AM EST Result [facility] POINT OF CARE TEST ENTER/EDIT ORDERABLES Final Result * (ABNORMAL) POCT HGB A1C (06/21/2024 9:02 AM EST) Hemoglobin A1C 6.7(A) 4.0 - 6.0 % Blood 06/21/2024 9:02 AM EST Result [facility] POINT OF CARE TEST ENTER/EDIT ORDERABLES Final Result documented in this encounter Visit Diagnoses Diagnosis Type 2 diabetes mellitus with hyperglycemia, without long-term current use of insulin ([facility])- Primary Constipation, unspecified constipation type Ingrown toenail of right foot Encounter for immunization Dietary counseling Dietary surveillance and counseling Exercise counseling Class 1 obesity due to excess calories with serious comorbidity and body mass index (BMI) of 32.0 to 32.9 in adult documented in this encounter Additional Health Concerns Assessment Noted Time PHQ-9 Depression Total Score: 0 06/22/19 25 9:02 AM EST documented as of this encounter Care Teams Transportation Analyst Relationship Specialty Start Date End Date [facility] [address] [place] [phone] PCP - General Family Medicine 12/15/21 documented as of this encounter
--- OUTSIDE RECORDS SUMMARY | 2024-07-05 09:46 | XMS_ITS | Encounter Summary ---
Author Organization [employer] Address [address] [facility] [address] [place] [address] Care Team Providers Care Apple Picking Supervisor Name Role Phone Faby Gil [employer] Primary Care Provider [phone] Encounter Details Date Type Department Care Team ([facility] st Contact Info) Description 06/30/2024 Population Health Risk Score [facility] ([facility]) Department [address] [facility] [address] [place] [phone] Provider, Population Health Generic Social History Tobacco Use Types Packs/Day Years [...] Description 08/23/2024 10:00 AM EDT Office Visit [facility] OPTOMETRY [address] [place] [address] Jem, Sun, OD [address] [place] [address] 09/20/2024 10:00 AM EDT Office Visit [facility] MEDICINE [address] [place] [address] Faby Gil FNP [address] [place] [address] documented as of this encounter Visit Diagnoses Not on filedocumented in this encounter Additional Health Concerns Assessment Noted Time PHQ-9 Depression Total Score: 0 06/22/19 25 9:02 AM EST documented as of this encounter Care Teams Apple Picking Supervisor Relationship Specialty Start Date End Date Faby Gil FNP [address] [place] [address] PCP - General Family Medicine 12/15/21 documented as of this encounter
--- OUTSIDE RECORDS SUMMARY | 2024-07-05 09:46 | XMS_ITS | Encounter Summary ---
Author Organization [employer] Address [address] [facility] [address] [place] [address] Care Team Providers Care Production Team Member Name Role Phone [facility] Primary Care Provider [phone] Reason for Visit * Reason Comments Med Refill Encounter Details Date Type Department Care Team ([facility] st Contact Info) Description 06/04/2024 Refill [facility] [address] [place], [place] [phone] [facility] [address] [place], [place] [phone] Mixed hyperlipidemia; Vitamin D deficiency; Primary hypertension Social History Tobacco Use Types Packs/Day Years Used Date Smoking Tobacco: Former Cigarettes Passive Smoke Exposure: Past Smokeless Tobacco: Never Alcohol Use Standard Drinks/Week Comments Never 0 (1 standard drink = 0.6 oz pur e alcohol) Depression Answer Date Recorded Patient Health Questionnaire-9 Score 0 01/13/2023 Housing Stability Answer Date Recorded What is [...] Date Recorded Patient Health Questionnaire-2 Score 0 01/13/2023 Internet Access Answer Date Recorded Internet Access [...] Description 08/23/2024 10:00 AM EDT Office Visit [facility] OPTOMETRY [address] [place] [address] Jem, Sun, OD [address] [place] [address] 09/20/2024 10:00 AM EDT Office Visit [facility] MEDICINE [address] [place] [address] Faby Gil FNP [address] [place] [address] documented as of this encounter Visit Diagnoses Diagnosis Mixed hyperlipidemia Vitamin D deficiency Primary hypertension Unspecified essential hypertension documented in this encounter Additional Health Concerns Assessment Noted Time PHQ-9 Depression Total Score: 0 01/14/20 23 11:47 AM EDT documented as of this encounter Care Teams Production Team Member Relationship Specialty Start Date End Date Faby Gil FNP [address] [place] [address] PCP - General Family Medicine 12/15/21 documented as of this encounter
--- OUTSIDE RECORDS SUMMARY | 2024-07-05 09:46 | XMS_ITS | Encounter Summary ---
Author Organization [employer] Address [address] [facility] [address] [place] [address] Care Team Providers Care Assistant Store Director Name Role Phone Yukon Faby MULTIFOCAL BUTTON INSPECTOR Primary Care Provider [phone] Encounter Details Date Type Department Care Team ([facility] Contact Info) Description 06/05/2024 Orders Only GENERIC EXTERNAL DATA DEPARTMENT Provider, Generic External Data Social History Tobacco Use Types Packs/Day Years [...] 08/23/2024 10:00 AM EDT Office Visit [facility] OPTOMETRY [address] [place], [place] [phone] Jem, Sun, OD [address] [place] [address] 09/20/2024 10:00 AM EDT Office Visit [facility] MEDICINE [address] [place] [address] Jeffery, Faby, MULTIFOCAL BUTTON INSPECTOR [address] [place] [address] documented as of this encounter Procedures Procedure Name Priority Date/Time Associated Diagnosis Comments US ABDOMEN LIMITED Routine 06/05/2024 2: 36 PM EST D DIMER HIGH SENSITIVITY Routine 06/05/2024 2:06 PM EST HIGH SENSITIVITY TROPONIN I Routine 06/05/2024 11:32 AM EST TSH W/REFLEX TO FT4 Routine 06/05/2024 1 1:32 AM EST SARS COV2/INFLUENZA A/B AND RSV RNA QL NAAT Routine 06/05/2024 11:32 AM EST CBC WITH AUTO DIFFERENTIAL Routine 06/05/2024 11:32 AM EST HCG, TOTAL, QN Routine 06/05/2024 11:32 AM EST MAGNESIUM Routine 06/05/2024 11:32 AM EST LIPASE Routine 06/05/2024 11:32 AM EST HEPATIC FUNCTION PANEL Routine 06/05/2024 11:32 AM EST BASIC METABOLIC PANEL Routine 06/05/2024 11:32 AM EST documented in this encounter Results * US Abdomen Limited (06/05/2024 2:36 PM EST) Anatomical Region Laterality Modality Abdomen Ultrasound 06/05/2024 2:36 PM EST Narrative 06/05/2024 2:37 PM EST ? [facility] ?[address] ?[place] [address] ? Ultrasound Report ? Signed ? Patient: Belle Kenyon ?MR# ?? : [id number] ? : 1970 ?Acct:[id number] ? Age/Sex: 54 / F ?ADM Date: 06/05/24 ? Loc: HO.ED ? Attending Dr: ? Ordering Physician: Carmen Medeiros DO ?? Date of Service: 06/05/24 ?? Procedure(s): US abdomen limited ?? Accession Number(s): [id number] ? cc: Michelle King MD; Carmen Medeiros [...] ? DD/ 35 ? TD/TT: 06/05/241435 ? Senior Internal Auditor: ? Procedure Note Donotuseinterpreter, Image - 06/05/2024 [address] [place] [address] Ultrasound Report Signed Patient: Dean Kenyon# : [id number] : 1970Acct:[id number] Age/Sex: 54 / FADM Date: 06/05/24 Loc: HO.ED Attending Dr: Ordering Physician: Carmen Medeiros DO Date of Service: 06/05/24 Procedure(s): US abdomen limited Accession Number(s): [id number] cc: Michelle King MD; Carmen Medeiros DO [...] 06/05/24 1437 DD/ 1436 TD/TT: 06/05/24 1436 Senior Internal Auditor: us [facility] External Provider IMG US PROCEDURES Final Result * D Dimer High Sensitivity (06/05/2024 2:06 PM EST) D Dimer High Sensitivity <150 NG/ML [facility] Comment:D-DIMER HS REFERENCE RANGENote: [...] ORDERAB LES Final Result Performing Organization Address [facility] Co de Phone Number [facility] [address] [place] [phone] * SARS-CoV-2 RNA, Influenza A/B, and RSV RNA, Ql NAAT (06/05/2024 11:32 AM EST) Influenza A PCR NEGATIVE Negative [facility] Influenza B PCR NEGATIVE Negative [facility] Resp Syncy Virus RNA Qual PCR NEGATIVE Negative [facility] SARS COV2 PCR NEGATIVE Negative [facility] Comment:All test results mus t be [...] use by authorized laboratories.Testing performed on the [employer] GeneXpert utilizingreal-time RT-PCR.All SARS CoV2 and positive influenza A/B results arereported to [facility]. 06/05/2024 11:3 2 AM EST 06/05/2024 11:35 AM EST Generic External Data Provider LAB MICROBIOLOGY - GENERAL ORDERABLES Final Result Performing Organization Address [facility] Co de Phone Number [facility] [address] [place] [phone] * TSH with Reflex to Free T4 (06/05/2024 11:32 AM EST) TSH reflex Free T4 3.10 0.32 - 4.0 uIU/mL [facility] 06/05/2024 11:3 2 AM EST 06/05/2024 11:35 AM EST Generic External Data Provider LAB BLOOD ORDERAB LES Final Result Performing Organization Address City/[facility]/ZIP Co de Phone Number [facility] [address] [place] [phone] * hCG, Total, Quantitative (06/05/2024 11:32 AM EST) Pathologist [facility] HCG Quantitative 3 mIU/mL [facility] Comment:Weeks post LMP Appro ximate hCG(Last Menstrual Period) Range (mIU/ml)3 - 4 weeks 9 - 1304 - 5 weeks 75 - 2,6005 - 6 weeks 850 - 20,8006 - 7 weeks 4000 - 100,2007 - 12 weeks 11,500 - 289,79086 - 16 weeks 18,300 - 137,62049 - 29 weeks (2nd trimester) 1,400 - 53,48381 - 41 weeks (3rd trimester) 940 - 60,000The Watson B- hCG assay is used for the early detection ofpregnancy; it cannot be used to diagnose any conditionunrelated to . If a B-hCG level is not supportedby the clinical evidence, results should be confirmed by analternative method (qualitative urine hCG, for example). 06/05/2024 11:3 2 AM EST 06/05/2024 11:35 AM EST us Generic External Data Provider LAB BLOOD ORDERAB LES Final Result Performing Organization Address City/[facility]/ZIP Co de Phone Number [facility] [address] [place] [phone] * Lipase (06/05/2024 11:32 AM EST) Pathologist [facility] Lipase 19 8 - 78 U/L [facility] 06/05/2024 11:3 2 AM EST 06/05/2024 11:35 AM EST Generic External Data Provider LAB BLOOD ORDERAB LES Final Result Performing Organization Address City/[facility] Co de Phone Number [facility] [address] [place] [phone] * Magnesium (06/05/2024 11:32 AM EST) Magnesium 1.9 1.6 - 2.6 mg/dL [facility] 06/05/2024 11:3 2 AM EST 06/05/2024 11:35 AM EST [email or web address] External Data Provider LAB BLOOD ORDERAB LES Final Result Performing Organization Address [facility] Phone Number [facility] [address] [place] [address] [phone] * (ABNORMAL) Basic Metabolic Panel (06/05/2024 11:32 AM EST) Sodium 137 135 - 145 mmol/L [facility] Potassium 4.0 3.3 - 5.1 mmol/L [facility] Comment:Slight Hemolysis.Int erpret result with caution. Chloride 104 96 - 108 mmol/L [facility] Carbon Dioxide 22 22 - 29 mmol/L [facility] Anion Gap 15 12 - 20 [facility] Urea Nitrogen (BUN) 20(H) 9 - 16 mg/dL [facility] Creatinine, Serum 0.92 0.5 - 1.4 mg/dL [facility] Creatinine Clr Calc Pharmacy 58.2 [facility] Comment:Provided height and weight: 144.78 cm,72.575 kg.eGFR (calculated from the MDRD study equation) and eCrCl(calculated from the Cockcroft-Gault equation) are based ondifferent parameters and may not yield comparable results.If eCrCl result is absurd, please check patient'sheight/weight. Estimated Glomerular Filt Rate >60 [facility] Comment:Chronic Kidney Disea se: Estimated GFR < 60 mL/min/1.63s1Ndbzoo Kidney Disease: Estimated GFR < 15 mL/min/1.73m2 Glucose 121(H) 60 - 115 mg/dL [facility] Calcium 9.8 8.4 - 10.2 mg/dL [facility] 06/05/2024 11:3 2 AM EST 06/05/2024 11:35 AM EST Generic External Data Provider LAB BLOOD ORDERAB LES Final Result Performing Organization Address [facility] de Phone Number [facility] [address] [place] [address] [phone] * (ABNORMAL) Hepatic Function Panel (06/05/2024 11:32 AM EST) Bilirubin, Total 0.3 0.0 - 1.0 mg/dL [facility] Bilirubin, Direct 0.1 0.0 - 0.5 mg/dL [facility] Aspartate Amino Transferase 38(H) 5 - 31 U/L [facility] Comment:Slight Hemolysis.Int erpret result with caution. Alanine Aminotransferase 34(H) 0 - 31 U/L [facility] Total Protein 8.9(H) 6.5 - 8.0 g/dL [facility] Albumin Level 4.3 3.5 - 5.0 g/dL [facility] Alkaline Phosphatase 114 39 - 117 U/L [facility] 06/05/2024 11:3 2 AM EST 06/05/2024 11:35 AM EST Generic External Data Provider LAB BLOOD ORDERAB LES Final Result Performing Organization Address [facility] de Phone Number [facility] [address] [place] [address] [phone] * High Sensitivity Troponin I (06/05/2024 11:32 AM EST) TROPONIN I HIGH SENSITIVITY <2.7 <3.5 - 17.0 ng/L [facility] Comment:The Watson high sens itivity Troponin-I results should beused in conjunction with other diagnostic information suchas ECG, clinical observations and information, and patientsymptoms to aid in the diagnosis of PA. 06/05/2024 11:3 2 AM EST 06/05/2024 11:35 AM EST us Generic External Data Provider LAB BLOOD ORDERAB LES Final Result [facility] [address] [place] [phone] * (ABNORMAL) CBC auto differential (06/05/2024 11:32 AM EST) White Blood Count 13.4(H) 4.8 - 10.8 X10*3/uL [facility] Red Blood Count 6.02(H) 4.20 - 5.50 X10*6/uL [facility] Hemoglobin 13.1 12.0 - 16.0 g/dl [facility] Hematocrit 42.3 37.0 - 47.0 % [facility] Mean Corpuscular Volume 70.3(L) 80.0 - 98.0 fL [facility] Mean Corpuscular Hemoglobin 21.8(L) 27.0 - 33.0 pg [facility] Mean Corpuscular HGB Conc 31.0 31.0 - 35.0 g/dl [facility] Red Cell Distribution Width 16.2(H) 11.0 - 16.0 % [facility] Platelet Count 414(H) 160 - 400 X10*3/uL [facility] Mean Platelet Volume 9.2(L) 9.4 - 12.3 fL [facility] Neutrophils Percent Auto 84.1(H) 45 - 73 % [facility] Imm Gran Pct Auto 0.7(H) 0.0 - 0.4 % [facility] Lymphocytes Percent Auto 8.8(L) 20 - 40 % [facility] Monocytes Percent Auto 5.4 2 - 11 % [facility] Eosinophils Percent Auto 0.7 0 - 4 % [facility] Basophils Percent Auto 0.3 0 - 2 % [facility] NRBC Pct Auto 0.0 0.0 - 0.2 /100WBC [facility] Neutrophils Absolute Auto 11.2(H) 2.0 - 8.3 x10*3/uL [facility] Imm Gran Abs Auto 0.10(H) 0.00 - 0.03 X10*3/uL [facility] Lymphocytes Absolute Auto 1.2 1.2 - 4.9 X10*3/uL [facility] Monocytes Absolute Auto 0.7 0.1 - 1.2 X10*3/uL [facility] Eosinophils Absolute Auto 0.1 0.0 - 0.4 X10*3/uL [facility] Basophils Absolute Auto 0.0 0.0 - 0.2 X10*3/uL [facility] NRBC Abs Auto 0.000 0.0 - 0.012 X10*3/uL [facility] 06/05/2024 11:3 2 AM EST 06/05/2024 11:35 AM EST us Generic External Data Provider LAB BLOOD ORDERAB LES Final Result Performing Organization Address City/State/[facility] Co de Phone Number [facility] [address] [place] [address] [phone] documented in this encounter Visit Diagnoses Not on filedocumented in this encounter Additional Health Concerns Assessment Noted Time PHQ-9 Depression Total Score: 0 01/14/20 23 11:47 AM EDT documented as of this encounter Care Teams Assistant Store Director Relationship Specialty Start Date End Date Faby Gil FNP [address] [place] [address] PCP - General Family Medicine 12/15/21 documented as of this encounter
== END 2024-07-05 09:32 | disposition home or self-care (01) ==
LOC: HO.HCS 08:52
PROVIDERS: PCP Registered Nurse Community Health; Visit Provider Internal Medicine Cardiovascular Disease
DX: R00.2 Palpitations (principal); R06.09 Other forms of dyspnea
CPT/HCPCS: 93010; 99204

== ENCOUNTER → 2024-07-05 08:52 | Outpatient (BNVA) | payer MEDICAID, SELFPAY | PROVIDERS: PCP Registered Nurse Community Health; Visit Provider Internal Medicine Cardiovascular Disease | DX: R00.2 Palpitations (principal); R06.09 Other forms of dyspnea; R94.31 Abnormal electrocardiogram [ECG] [EKG] | CPT/HCPCS: 93005; 99202 ==

== ENCOUNTER → 2024-07-24 08:20 | Outpatient (REF) | payer MEDICAID, SELFPAY ==
--- NOTE | 2024-07-24 08:26 | CA_ITS ---
Transthoracic Echocardiogram Patient (Last, First, Middle): Belle Kenyon, Gender: Female Date of : 1970 Age: 54 Procedure Date: 07/24/2024 Procedure Type: Transthoracic Echocardiogram Location: OP Height: 144.78 cm Weight: 74.84 kg BSA: 1.66 m2 Heart Rate: 82 bpm BP: 130 / 80 mmHg Resin Coater: KAREEN Referring MD: Abimael Acosta MD Symptoms: R06.09 - Other forms of dyspnea Study Quality: Fair ECG Rhythm: Sinus Conclusions: - The left ventricular systolic function is normal. The calculated ejection fraction is 62% by biplane method. - There is mild septal asymmetric hypertrophy. - No obvious valvular pathology seen on this study. Findings Procedure Information The quality of the study was technically difficult. The study quality is limited by patients body habitus and lung artifact. Left Ventricle Normal left ventricular cavity size. The left ventricular systolic function is normal. The calculated ejection fraction is 62% by biplane method. There is no evidence of regional wall motion abnormalities. Evidence suggests grade I (mild) diastolic dysfunction. There is mild septal asymmetric hypertrophy. Right Ventricle Normal right ventricular cavity size and systolic function. Atria Both atria are normal in size. Aortic Valve There is a normal trileaflet aortic valve. There is no aortic valve stenosis. There is no aortic valve regurgitation. Mitral Valve The mitral valve appears normal. There is trace mitral valve regurgitation. There is no mitral valve stenosis. Pulmonic Valve There is trace pulmonic valve regurgitation. Tricuspid Valve There is trace tricuspid valve regurgitation. Tricuspid regurgitation envelope is inadequate for calculation of right ventricular systolic pressure. Great Vessels The asc aorta and aortic arch are normal in size. Venous The inferior vena cava is normal in size and collapses greater than 50% with inspiration. Pericardium/Pleural There is no evidence of pericardial effusion. Prior Study Comparison No significant change compared to prior study dated: 03/13/2009. Recommendations, Care & Conclusions No obvious valvular pathology seen on this study. Measurements 2D Linear Measurements IVSd: 1.23 0.6-0.9/0.6-1.0 cm LVIDd: 4.02 3.9-5.3/4.2-5.9 cm LVIDd Index: 2.42 2.4-3.2/2.2-3.1 cm/m2 LVIDs: 1.94 2.0-3.6 cm LVPWd: 1.23 0.7-1.1 cm LA Diam: 3.20 2.7-3.8/3.0-4.0 cm LAIDs Index: 1.93 1.5-2.3 cm/m2 LV Mass: 215.42 67-162/88-224 g LV Mass Index: 129.77 43-95/49-115 g/m2 LVOT Diam: 2.00 3.0+(-)1.3 cm 2D Systolic Function EF 4C: 57.40 >55% EF 2C: 65.80 >55% EF BiP: 61.80 >55% Mitral Valve MV Pk E: 0.77 MV PK A: 0.63 MV Decel Time: 189.00 E/A: 1.20 E'Lateral: 4.03 E'Medial: 3.48 E/E' Med: 22.00 E/E' Lat: 19.00 PHT: 55.00 MVA PHT: 4.00 Decel [place]: 4.06 Aortic Valve AoV Pk Ross: 1.14 AoV Pk Grad: 5.00 CAMILLA: 2.46 LVOT LVOT Pk Orss: 0.89 LVOT Mn Ross: 0.65 LVOT VTI: 0.18 LVOT Pk Grad: 3.00 LVOT Mn Grad: 2.00 LVOT Diam: 2.00 LVOT Area: 3.14 Diastolic Function MV Pk E: 0.77 MV Pk A: 0.63 E/A: 1.20 E'Medial: 3.48 E/E' Med: 22.00 E' Laterial: 4.03 E/E' Lat: 19.00 Right Ventricle TAPSE (mm): 19.10 TVS' Ross: 17.50 Tricuspid Valve RA Press: 3.00 Great Vessels Aorta Sinus of Valsalva: 3.00 2.0-3.5 cm Ao Asc: 3.60 2.1-3.4 cm Ao Arch: 2.90 Ao Desc: 1.80 Pulmonary Valve PV Pk Ross: 1.24 Peak PV Grad: 6.00 Updated in Other Vendor System with Status of Final Rico Osborn MD electronically signed on 07/24/2024 12:39:18 PM with status of Final
--- OUTSIDE RECORDS SUMMARY | 2024-07-24 08:45 | XMS_ITS | Clinical Summary ---
Author Organization [employer] Address [address] [facility] 7[address] [place] [address] Care Team Providers Care Body And Fender Mechanic Apprentice Name Role Phone Faby Gil INSPECTOR REPAIRER SANDSTONE Primary Care Provider [phone] Allergies No known active allergies Medications Blood Glucose Monitoring Suppl (FreeStyle glucose monitoring) kitIndications:Ty pe 2 diabetes mellitus with hyperglycemia, without long-term current use of insulin (CMS/[facility]) Check blood sugar twice daily [...] chew. Active fluticasone (Flonase) 50 MCG/ACT nasal sprayIndications: Seasonal allergies Administer 1 spray into each nostril in the morning. Shake gently. Before first use, prime pump. After use, clean tip and replace cap. 16 g 2 023 Active estradiol (Estrace) 0.1 MG/GM vaginal creamIndications: Vaginal atrophy Insert 500 mg intravaginally daily for 2 weeks, then decreased to 500 mg three times per week 42.5 g 12 023 Active Alcohol Swabs (Alcohol Prep) 70 % padsIndications:T ype 2 diabetes mellitus with hyperglycemia, without long-term current use of insulin (CMS/[facility]) USE DIRECTED TO TEST BLOOD SUGAR TWICE DAILY 100 each 11 024 Active TRUEplus Lancets 33G miscIndications:T ype 2 diabetes mellitus with hyperglycemia, without long-term current use of insulin ([facility]) TEST BLOOD SUGAR TWICE DAILY 100 each 11 024 Active doxycycline (Vibramycin) 100 MG capsuleIndication s:Rosacea Take 1 capsule (100 mg) by mouth 2 times daily. Take with at least 8 ounces (large glass) of water, do not lie down for 30 minutes after 60 capsule 1 024 Active metroNIDAZOLE (Metrogel) 0.75 % gelIndications:Ro sacea Apply topically 2 times daily. 45 g 2 024 2024 Active losartan (Cozaar) 100 MG tabletIndications :Primary hypertension TAKE 1 TABLET BY MOUTH EVERY MORNING 90 tablet 3 024 Active spironolactone (Aldactone) 25 MG tabletIndications :Primary hypertension TAKE 1/2 TABLET BY MOUTH EVERY MORNING 45 tablet 3 024 Active amLODIPine (Norvasc) 10 MG tablet TAKE 1 TABLET BY MOUTH AT BEDTIME 90 tablet 1 024 Active atorvastatin (Lipitor) 40 MG tabletIndications :Mixed hyperlipidemia TAKE 1 TABLET BY MOUTH EVERY MORNING 90 tablet 1 025 Active D3-1000 25 MCG (1000 UT) capsuleIndication s:Vitamin D deficiency TAKE 1 CAPSULE BY MOUTH EVERY MORNING 90 capsule 1 025 Active chlorthalidone (Hygroton) 25 MG tabletIndications :Primary hypertension TAKE 1 TABLET BY MOUTH EVERY MORNING 90 tablet 1 025 Active metFORMIN XR (Glucophage-XR) 500 MG 24 hr tabletIndications :Type 2 diabetes mellitus with hyperglycemia, without long-term current use of insulin ([facility]) Take 1 tablet (500 mg) by mouth 2 times daily. Do not crush, chew, or split. 360 tablet 3 025 Active polyethylene glycol, PEG, 3350 (MiraLax) 17 GM/SCOOP powderIndications :Constipation, unspecified constipation type Take 17 g by mouth Once per day. 116 g 3 025 Active rosuvastatin (Crestor) 10 MG tabletIndications :Mixed hyperlipidemia Take 1 tablet (10 mg) by mouth Once per day. 90 tablet 3 025 2025 Active glucose blood (FREESTYLE LITE) test stripIndications: Type 2 diabetes mellitus with hyperglycemia, without long-term current use of insulin ([facility]) TEST BLOOD SUGAR TWICE DAILY 100 strip 11 025 Active glucose blood (FREESTYLE LITE) test stripIndications: Type 2 diabetes mellitus with hyperglycemia, without long-term current use of insulin ([facility]) USE TO TEST BLOOD SUGAR TWICE DAILY 100 strip 11 024 2024 Discontinued Active Problems Problem Noted Date Diagnosed Date [...] (10/13/2022 6:53 PM EDT): Will obtain updated DENTAL INSTRUCTOR records for hx of abnormal pap Assessment [...] 08/2022, Risk 0 ?? Eye Exam: 04/2022, [facility] ?? Lipid panel: 05/2022 [...] Encounters Date Type Department Care Team Description 07/19/2024 Refill [facility] [address] [place] [address] [place] Type 2 diabetes mellitus with hyperglycemia, without long-term current use of insulin ([facility]) 06/30/2024 Population Health Risk Score [facility] () Department [address] [phone] Provider, Population Health Generic 06/23/2024 Refill [facility] [address] [place] [address] [facility]FORM[facility]LY [facility] Mixed hyperlipidemia 06/21/2024 9:00 AM EST Office Visit [facility] [address] [place] [address] [place] [facility] Type 2 diabetes mellitus with hyperglycemia, without [...] DEPARTMENT Provider, Generic External Data 06/04/2024 Refill [facility] [address] [place] [address] [place] [facility] Mixed hyperlipidemia; Vitamin D deficiency; Primary hypertension [...] your housing situation today? I have scot elie 02/01/[address] you li [...] Description 08/23/2024 10:00 AM EDT Office Visit [facility] OPTOMETRY [address] [place] [address] Jem, Sun, OD [address] [place] [address] 09/20/2024 10:00 AM EDT Office Visit [facility] [address] [place] [address] [facility], [facility] [address] [place] [address] Health Maintenance Due Date Last Done Comments CT Colonography 1970 Colonoscopy 1971 Colorectal Cancer Screening 1971 Dental Oral Exam 1971 Dental Prophylaxis 1971 Dental X-Ray: Bitewings 1971 Dental X-Ray: Full Mouth 1971 FIT DNA/Cologuard 1971 FIT 1971 FOBT 1971 Sigmoidoscopy 1971 Alcohol/Substance Use Screening 1983 COVID-19 Vaccine ( season) 2023 11/14/2021, 11/14/2021 SDOH Screening 11/10/2024 11/11/2023 Mammogram 11/25/2024 11/26/2023, 06/0 06/2021, 09/17/2021 Diabetes: Hemoglobin A1C 12/22/2024 025, 11/24/2023, 01/13/2023, Additional history exists Depression Screening 06/21/2025 06/21/2024, 06/22/19 Diabetes: Foot Exam 06/21/2025 06/21/2024, 06/21/2024, 06/21/2024, Additional history exists Diabetes: Urine Protein Screening 06/21/2025 06/21/2024, 01/13/2023, 09/12/2021 Lipid Panel 06/21/2025 06/21/2024, 08/0 10/2023, 05/29/2022, Additional history exists Tobacco Screening [...] 9:33 AM EST) Creatinine, Urine 118.05 mg/dL [facility] Microalbumin Urine 14.0 mg/L [facility] Microalbum Creatinine Ratio Ur 11.8 <30 ug/mg cr [facility] Comment:Albumin/Creatinine R atio Reference Ranges: Normal: < 30 ug/mg creatinine Microalbuminuria: 30 - 300 ug/mg creatinineClinical Albuminuria: > 300 ug/mg creatinine Urine 06/21/2024 9:33 AM EST 06/21/2024 11:25 AM EST [facility] LAB URINE ORDERABLES Final Re sult [facility] [address] [place] [phone] * (ABNORMAL) Lipid Panel, Standard (06/21/2024 9:33 AM EST) Triglycerides 317(H) <150 mg/dL [facility] Comment:Desirable Triglyceri de: less than 150 mg/dLBorderline High Triglyceride 150-199 mg/dLHigh Triglyceride: 200-499 mg/dLVery High Triglyceride: greater than or equal to 5OO mg/dL Cholesterol 188 <200 mg/dL [facility] Comment:Desirable Cholestero l: less than 200 mg/dLBorderline High Cholesterol: 200-239 mg/dLHigh Cholesterol: greater than 239 mg/dL LDL Cholesterol Calculated 88 <100 mg/dL [facility] Comment:Desirable LDL: less than 100 mg/dLNear Optimal/Above Optimal LDL: 110- 129 mg/dLBorderline High LDL: 130-159 mg/dLHigh LDL: 160-189 mg/dLVery High LDL: greater than or equal to 190 mg/dL HDL Cholesterol 37(L) >40 mg/dL [facility] Comment:Desirable HDL: great er than 40 mg/dL Note: This HDL assay may give artificially low results in patients with liver disease. Blood Venous blood specimen / Unknown 06/21/2024 9:33 AM EST 06/21/2024 11:30 AM EST [facility] LAB BLOOD ORDERABLES Final Re sult [facility] [address] [place] [phone] [phone] * (ABNORMAL) Comprehensive Metabolic Panel (06/21/2024 9:33 AM EST) Sodium 138 135 - 145 mmol/L [facility] Potassium 3.6 3.3 - 5.1 mmol/L [facility] Chloride 102 96 - 108 mmol/L [facility] Carbon Dioxide 27 22 - 29 mmol/L [facility] Anion Gap 13 12 - 20 [facility] Urea Nitrogen (BUN) 20(H) 9 - 16 mg/dL [facility] Creatinine, Serum 0.83 0.5 - 1.4 mg/dL [facility] Estimated Glomerular Filt Rate >60 [facility] Comment:Chronic Kidney Disea se: Estimated GFR < 60 mL/min/[id number] Kidney Disease: Estimated GFR < 15 mL/min/1.73m2 Glucose 107 60 - 115 mg/dL [facility] Calcium 10.2 8.4 - 10.2 mg/dL [facility] Bilirubin, Total 0.3 0.0 - 1.0 mg/dL [facility] Aspartate Amino Transferase 20 5 - 31 U/L [facility] Alanine Aminotransferase 23 0 - 31 U/L [facility] Total Protein 8.7(H) 6.5 - 8.0 g/dL [facility] Albumin Level 4.3 3.5 - 5.0 g/dL [facility] Alkaline Phosphatase 103 39 - 117 U/L [facility] Blood Venous blood specimen / Unknown 06/21/2024 9:33 AM EST 06/21/2024 11:30 AM EST [facility] LAB BLOOD ORDERABLES Final Re sult [facility] [address] [place] [phone] * (ABNORMAL) POCT HGB A1C (06/21/2024 9:02 AM EST) Hemoglobin A1C 6.7(A) 4.0 - 6.0 % Blood 06/21/2024 9:02 AM EST [facility] POINT OF CARE TEST ENTER/EDIT ORDERABLES Final Result * POCT Glucose (06/21/2024 9:02 AM EST) Glucose Blood, POC 92 60 - 200 mg/dL Blood Capillary blood specimen / Unknown 06/21/2024 9:02 AM EST [facility] INSPECTOR REPAIRER SANDSTONE POINT OF CARE TEST ENTER/EDIT ORDERABLES Final Result * US Abdomen Limited (06/05/2024 2:36 PM EST) Anatomical Region Laterality Modality Abdomen Ultrasound 06/05/2024 2:36 PM EST Narrative 06/05/2024 2:37 PM EST ? [facility] ?[address] ?[place] [address] ? Ultrasound Report ? Signed ? Patient: Belle Kenyon ?MR# ?? : [id number] ? : 1970 ?Acct:[id number] ? Age/Sex: 54 / F ?ADM Date: 06/05/24 ? Loc: HO.ED ? Attending Dr: ? Ordering Physician: Carmen Medeiros DO ?? Date of Service: 06/05/24 ?? Procedure(s): US abdomen limited ?? Accession Number(s): [id number] ? cc: Michelle King MD; Carmen Medeiros [...] by Jennifer Murillo MD in OV> ? 06/05/247 ? DD/ ? TD/TT: 06/05/246 ? Pharmaceutical Plant Operator: ? Procedure Note Gabino, Image - 06/05/2024 [address] [place] [address] Ultrasound Report Signed Patient: Belle Kenyon# : [id number] : 1970Acct:[id number] Age/Sex: 54 / FADM Date: 06/05/24 Loc: HO.ED Attending Dr: Ordering Physician: Carmen Medeiros DO Date of Service: 06/05/24 Procedure(s): US abdomen limited Accession Number(s): [id number] cc: Michelle King MD; Carmen Medeiros DO [...] 06/05/24 1437 DD/ 1436 TD/TT: 06/05/24 1436 Pharmaceutical Plant Operator: [facility] External Provider IMG US PROCEDURES Final Result * D Dimer High Sensitivity (06/05/2024 2:06 PM EST) D Dimer High Sensitivity <150 NG/ML [facility] Comment:D-DIMER HS REFERENCE RANGENote: Our assay [...] ORDERAB LES Final Result Performing Organization Address [facility] Co de Phone Number [facility] [address] [place] [phone] * High Sensitivity Troponin I (06/05/2024 11:32 AM EST) [facility] TROPONIN I HIGH SENSITIVITY <2.7 <3.5 - 17.0 ng/L [facility] Comment:The Watson high sens itivity Troponin-I results should beused in conjunction with other diagnostic information suchas ECG, clinical observations and information, and patientsymptoms to aid in the diagnosis of MD. 06/05/2024 11:3 2 AM EST 06/05/2024 11:35 AM EST Generic External Data Provider LAB BLOOD ORDERAB LES Final Result Performing Organization Address [facility] Co de Phone Number [facility] [address] [place] [phone] * TSH with Reflex to Free T4 (06/05/2024 11:32 AM EST) [facility] TSH reflex Free T4 3.10 0.32 - 4.0 uIU/mL [facility] 06/05/2024 11:3 2 AM EST 06/05/2024 11:35 AM EST Generic External Data Provider LAB BLOOD ORDERAB LES Final Result Performing Organization Address [facility] Co de Phone Number [facility] [address] [place] [phone] * SARS-CoV-2 RNA, Influenza A/B, and RSV RNA, Ql NAAT (06/05/2024 11:32 AM EST) [facility] Influenza A PCR NEGATIVE Negative [facility] Influenza B PCR NEGATIVE Negative [facility] Resp Syncy Virus RNA Qual PCR NEGATIVE Negative [facility] SARS COV2 PCR NEGATIVE Negative [facility] Comment:All test results mus t [...] use by authorized laboratories.Testing performed on the [employer] utilizingreal-time RT-PCR.All SARS CoV2 and positive influenza A/B results arereported to [facility]. 06/05/2024 11:3 2 AM EST 06/05/2024 11:35 AM EST Generic External Data Provider LAB MICROBIOLOGY - GENERAL ORDERABLES Final Result [facility] [address] [place] [phone] * (ABNORMAL) CBC auto differential (06/05/2024 11:32 AM EST) [facility] White Blood Count 13.4(H) 4.8 - 10.8 X10*3/uL [facility] Red Blood Count 6.02(H) 4.20 - 5.50 X10*6/uL [facility] Hemoglobin 13.1 12.0 - 16.0 g/dl [facility] Hematocrit 42.3 37.0 - 47.0 % [facility] Mean Corpuscular Volume 70.3(L) 80.0 - 98.0 fL [facility] Mean Corpuscular Hemoglobin 21.8(L) 27.0 - 33.0 pg [facility] Mean Corpuscular HGB Conc 31.0 31.0 - 35.0 g/dl [facility] Red Cell Distribution Width 16.2(H) 11.0 - 16.0 % [facility] Platelet Count 414(H) 160 - 400 X10*3/uL [facility] Mean Platelet Volume 9.2(L) 9.4 - 12.3 fL [facility] Neutrophils Percent Auto 84.1(H) 45 - 73 % [facility] Imm Gran Pct Auto 0.7(H) 0.0 - 0.4 % [facility] Lymphocytes Percent Auto 8.8(L) 20 - 40 % [facility] Monocytes Percent Auto 5.4 2 - 11 % [facility] Eosinophils Percent Auto 0.7 0 - 4 % [facility] Basophils Percent Auto 0.3 0 - 2 % [facility] NRBC Pct Auto 0.0 0.0 - 0.2 /100WBC [facility] Neutrophils Absolute Auto 11.2(H) 2.0 - 8.3 x10*3/uL [facility] Imm Gran Abs Auto 0.10(H) 0.00 - 0.03 X10*3/uL [facility] Lymphocytes Absolute Auto 1.2 1.2 - 4.9 X10*3/uL [facility] Monocytes Absolute Auto 0.7 0.1 - 1.2 X10*3/uL [facility] Eosinophils Absolute Auto 0.1 0.0 - 0.4 X10*3/uL [facility] Basophils Absolute Auto 0.0 0.0 - 0.2 X10*3/uL [facility] NRBC Abs Auto 0.000 0.0 - 0.012 X10*3/uL [facility] 06/05/2024 11:3 2 AM EST 06/05/2024 11:35 AM EST us Generic External Data Provider LAB BLOOD ORDERAB LES Final Result [facility] [address] [place] [phone] * hCG, Total, Quantitative (06/05/2024 11:32 AM EST) HCG Quantitative 3 mIU/mL [facility] Comment:Weeks post LMP Appro ximate hCG(Last Menstrual Period) Range (mIU/ml)3 - 4 weeks 9 - 1304 - 5 weeks 75 - 2,6005 - 6 weeks 850 - 20,8006 - 7 weeks 4000 - 100,2007 - 12 weeks 11,500 - 289,83482 - 16 weeks 18,300 - 137,84994 - 29 weeks (2nd trimester) 1,400 - 53,21258 - 41 weeks (3rd trimester) 940 - [...] ORDERAB LES Final Result Performing Organization Address City/[facility]/ZIP Co de Phone Number [facility] [address] [place] [phone] * Magnesium (06/05/2024 11:32 AM EST) Magnesium 1.9 1.6 - 2.6 mg/dL [facility] 06/05/2024 11:3 2 AM EST 06/05/2024 11:35 AM EST Generic External Data Provider LAB BLOOD ORDERAB LES Final Result Performing Organization Address City/[facility]/ZIP Co de Phone Number [facility] [address] [place] [phone] * Lipase (06/05/2024 11:32 AM EST) Lipase 19 8 - 78 U/L [facility] 06/05/2024 11:3 2 AM EST 06/05/2024 11:35 AM EST us Generic External Data Provider LAB BLOOD ORDERAB LES Final Result Performing Organization Address [facility] de Phone Number [facility] [address] [place] [phone] * (ABNORMAL) Hepatic Function Panel (06/05/2024 11:32 AM EST) Bilirubin, Total 0.3 0.0 - 1.0 mg/dL [facility] Bilirubin, Direct 0.1 0.0 - 0.5 mg/dL [facility] Aspartate Amino Transferase 38(H) 5 - 31 U/L [facility] Comment:Slight Hemolysis.Int erpret result with caution. Alanine Aminotransferase 34(H) 0 - 31 U/L [facility] Total Protein 8.9(H) 6.5 - 8.0 g/dL [facility] Albumin Level 4.3 3.5 - 5.0 g/dL [facility] Alkaline Phosphatase 114 39 - 117 U/L [facility] 06/05/2024 11:3 2 AM EST 06/05/2024 11:35 AM EST us Generic External Data Provider LAB BLOOD ORDERAB LES Final Result Performing Organization Address [facility] de Phone Number [facility] [address] [place] [phone] * (ABNORMAL) Basic Metabolic Panel (06/05/2024 11:32 AM EST) Sodium 137 135 - 145 mmol/L [facility] Potassium 4.0 3.3 - 5.1 mmol/L [facility] Comment:Slight Hemolysis.Int erpret result with caution. Chloride 104 96 - 108 mmol/L [facility] Carbon Dioxide 22 22 - 29 mmol/L [facility] Anion Gap 15 12 - 20 [facility] Urea Nitrogen (BUN) 20(H) 9 - 16 mg/dL [facility] Creatinine, Serum 0.92 0.5 - 1.4 mg/dL [facility] Creatinine Clr Calc Pharmacy 58.2 [facility] Comment:Provided height and weight: 144.78 cm,72.575 kg.eGFR (calculated from the MDRD study equation) and eCrCl(calculated from the Cockcroft-Gault equation) are based ondifferent parameters and may not yield comparable results.If eCrCl result is absurd, please check patient'sheight/weight. Estimated Glomerular Filt Rate >60 [facility] Comment:Chronic Kidney Disea se: Estimated GFR < 60 mL/min/1.58y3Vkpmur Kidney Disease: Estimated GFR < 15 mL/min/1.73m2 Glucose 121(H) 60 - 115 mg/dL [facility] Calcium 9.8 8.4 - 10.2 mg/dL [facility] 06/05/2024 11:3 2 AM EST 06/05/2024 11:35 AM EST us Generic External Data Provider LAB BLOOD ORDERAB LES Final Result [facility] [address] [place] [phone] * BI Mammogram Screening Tomosynthesis Bilateral (11/26/2023 12:00 PM EDT) Anatomical Region Laterality Modality Breast Bilateral Mammography 11/26/2023 12:0 0 PM EDT Narrative 12/23/2023 12:23 PM EDT ? [facility] ? [address] ?[place] [address] ? Mammography Report ? Signed ? Patient: Belle Kenyon ?MR# ?? : [id number] ? : 1970 ?Acct:[id number] ? Age/Sex: 53 / F ?ADM Date: 08//24 ? Loc: HO.MAMMO ? Attending Dr: Michelle Roberto MD ? Ordering Physician: Michelle King MD ?Results: ?? 2Benign Findings ? Date of Service: 11/26/23 ?Follow Up: 1 Year From Orig ?? inal Mammogram ? Procedure(s): MM tomosynthesis screening BI ?? Accession Number(s): [id number] ? cc: Molly Pleitez NP; Michelle King MD ? EXAMINATION: ?? MM [...] DD/ 1200 ? TD/TT: 11/26/23 1216 ? Pharmaceutical Plant Operator: ? Procedure Note Donotuseinterpreter, Image - 12/23/2023 [facility] [address] [place] [address] Mammography Report Signed Patient: Belle KenyonMR# : [id number] : 1970Acct:[id number] Age/Sex: 53 / FADM Date: 11/26/23 Loc: HO.MAMMO Attending Dr: Michelle Roberto MD Ordering Physician: Michelle King MDResults: 2Benign Findings Date of Service: 11/26/23Follow Up: 1 Year From Orig inal Mammogram Procedure(s): MM tomosynthesis screening BI Accession Number(s): [id number] cc: Molly Pleitez CHOREOGRAPHY DIRECTOR; Michelle King MD EXAMINATION: MM SCREENING DIGITAL [...] Chyna Duarte MD 12/23/2023 12:20 PM EDT RP Dictated By: Chyna Duarte MD Signed By: <Electronically signed by Chyna Duarte MD in OV> 12/23/23 1220 DD/ 1200 TD/TT: 11/26/23 1216 Pharmaceutical Plant Operator: Michelle Roberto MD IMG BI PROCEDURES Caden jenn Result - Final * HPV mRNA E6/E7 w/Reflex to HPV Genotypes 16, 18/45 (02/01/2023 11:15 AM EDT) HPV nRNA E6/E7 Not Detected Not Detected [facility] Comment:Methodology: Transcr iption-Mediated AmplificationThis assay detects E6/E7 viral messenger RNA (mRNA) from 14high-risk HPV types (16,18,31,33,35,39,45,51,52,56,58,59,66,68).Cervical sources are required for HPV testing.If a vaginal source from a patient who has had atotal hysterectomy with removal of cervix wassubmitted, please contact the testing laboratoryfor alternative testing options.For additional information, please refer tohttp://education.[employer]/faq/AMK557b2(This link if provided for information/educational purposes only.)THIS TEST WAS PERFORMED AT:[employer] [place] [phone] HULL MD HPV mRNA E6/E7 [facility] HPV 16 RNA MOP [facility] HPV 18/45 RNA [facility] 02/01/2023 11:1 5 AM EDT 02/02/2023 8:15 AM EDT [facility] CYTOLOGY ORDERABLES Final Result [facility] [address] [place] [phone] * Pap Smear (02/01/2023 11:15 AM EDT) 02/01/2023 11:1 5 AM EDT 02/02/2023 8:15 AM EDT Narrative [facility] - 02/05/2023 1:23 PM EDT ----- ------- Name: Belle Kenyon ? Age/Sex: 52/F ? : 1970 Unit#: [id number] ?? Attend Dr: Faby Gil ?Re02/01/23 ?Status: DEP REF ? Location: HO.HHCLNP ? Disch: ? ----- ------- SPEC : [id number] ?RECD: 02/02/23 ? STATUS: ??SOUT ? REQ NUM: [id number] ? DOMINGO: 02/01/239 ? SUBM DR: Faby Gil ? ENTERED: ??02/02/239 ?SP TYPE: Pap Smr ?OTHR DR: ? [...] 66, 68) ?? HPV testing performed by [employer], [place], [place]. ??See reference laboratory ?? pion of the EMR for entire report. ?Clinical Information LMP: Postmenopausal Previous PAP test: Unknown date/findings Other history: Hx of abnormal pap within 3 years ? Material Received ?? ThinPrep-Cervical ----- ------- Signed (signature on file) Gi MIKE García ([facility]) 02/05/23 1323 ? ----- ------- ? END OF REPORT ? [facility] CYTOLOGY ORDERABLES Final Result [facility] [address] [place] [phone] * HIV Ab/Ag ([facility]) (01/13/2023 12:24 PM EDT) [facility] HIV AB/AG Nonreactive Nonreactive [facility] Comment:HIV-1 p24 Ag and/or HIV-1/HIV-2 Ab not detected.A test result that is nonreactive does not exclude thepossibility of exposure to or infection with HIV-1 and/orHIV-2. Nonreactive results in this assay for individualswith prior exposure to HIV-1 and/or HIV-2 may be due toantigen and antibody levels that are below the limit ofdetection of this assay.The [email or web address] HIV Ag/Ab Combo assay result andsupplemental assay results should be interpreted inconjunction with the patient's clinical presentation,history and other laboratory results. If the results areinconsistent with clinical evidence, additional testing issuggested to confirm the result. 01/13/2023 12:2 4 PM EDT 01/13/2023 3:53 PM EDT [facility] BLOOD ORDERABLES Final Re sult Performing Organization Address [facility] Co de Phone Number [facility] [address] [place] [phone] * Hepatitis Panel, General (01/13/2023 12:24 PM EDT) Hepatitis A IgM Nonreactive Nonreactive [facility] Comment:IgM antibodies to [place]OD[place] V not detected; does not exclude earlyacute or recovered HAV infection. ~Hepatitis B Surface Antibody REACTIVE Nonreactive [facility] Comment:REACTIVE: > 11.99 mI U/mL Hepatitis B Core Antibody Nonreactive Nonreactive [facility] Hepatitis C Antibody Nonreactive Nonreactive [facility] Comment:Antibodies to HCV no t detected; does not exclude early acuteHCV infection. Hepatitis B Surface Ag Negative Negative [facility] Blood 01/13/2023 12:2 4 PM EDT 01/13/2023 3:53 PM EDT [facility] LAB BLOOD ORDERABLES Final Re sult Performing Organization Address [facility] Co de Phone Number [facility] [address] [place] [address] [phone] from Last 3 Months or Most Recently Relevant to Health Maintenance Insurance [facility] C3 HSN FULL Member Subscriber Plan / Payer (Ef fective 2022-Present) Name:Belle Kenyon Relation to Subscriber:Self Name:Aurelio TyroneHerminioBelle Payer ID:Not on file Group ID:Not on file Type:Not on file Address: [address] [place] [id number] [place] AD[place] Care Teams Body And Fender Mechanic Apprentice Relationship Specialty Start Date End Date Faby Gil FNP [address] [place] [id number] PCP - General Family Medicine 12/15/21
--- OUTSIDE RECORDS SUMMARY | 2024-07-24 08:45 | XMS_ITS | Encounter Summary ---
Author Organization [facility] Address [address] [facility] 7t [place] [address] Care Team Providers Care Rf Test Technician Name Role Phone [facility] Primary Care Provider [phone] Reason for Visit * Reason Comments Med Refill Encounter Details Date Type Department Care Team ([facility] Contact Info) Description 10/09/2022 Refill [facility] MEDICINE [address] [place] [address] [facility] [address] [place] [address] Primary hypertension Social History Tobacco Use Types [...] Upcoming Encounters Date Type Department Care Team ([facility] Contact Info) Description 08/23/2024 10:00 AM EDT Office Visit [facility] OPTOMETRY [address] [place] [address] Sun Parish, OD [address] [place] [address] 09/20/2024 10:00 AM EDT Office Visit [facility] MED[facility]INE [address] [facility] [place] [address] Faby Gil FNP [address] [place] [address] documented as of this encounter Visit Diagnoses Diagnosis Primary hypertension Unspecified essential hypertension documented in this encounter Additional Health Concerns Assessment Noted Time PHQ-9 Depression Total Score: 0 08/28/19 23 2:12 PM EDT documented as of this encounter Care Teams Rf Test Technician Relationship Specialty Start Date End Date Faby Gil FNP [address] [place] [address] PCP - General Family Medicine 12/15/21 documented as of this encounter
--- OUTSIDE RECORDS SUMMARY | 2024-07-24 08:45 | XMS_ITS | Encounter Summary ---
Author Organization [facility] Address [address] [facility] 7t [place] [address] Care Team Providers Care Referral Agent Name Role Phone [facility] Primary Care Provider [phone] Reason for Visit * Reason Comments Med Refill Encounter Details Date Type Department Care Team ([facility] Contact Info) Description 07/19/2024 Refill [facility] MEDICINE [address] [place], [place] [phone] [place] [facility] [address] [place] [address] Type 2 diabetes mellitus with hyperglycemia, without long-term current use of insulin ([facility]) Social History Tobacco Use Types Packs/Day Years [...] Description 08/23/2024 10:00 AM EDT Office Visit [facility] OPTOMETRY [address] [place] [address] Jem, Sun, OD [address] [place] [address] 09/20/2024 10:00 AM EDT Office Visit [facility] MEDICINE [address] [place] [address] Faby Gil [facility] [address] [place] [address] documented as of this encounter Visit Diagnoses Diagnosis Type 2 diabetes mellitus with hyperglycemia, without long-term current use of insulin ([facility]) documented in this encounter Additional Health Concerns Assessment Noted Time PHQ-9 Depression Total Score: 0 06/22/19 25 9:02 AM EST documented as of this encounter Care Teams Referral Agent Relationship Specialty Start Date End Date Faby Gil FNP [address] [place] [address] PCP - General Family Medicine 12/15/21 documented as of this encounter
== END ==
LOC: HO.CARD 08:20
PROVIDERS: PCP Registered Nurse Community Health; Visit Provider Internal Medicine Cardiovascular Disease
DX: R07.9 Chest pain, unspecified (principal); R06.09 Other forms of dyspnea; R00.2 Palpitations
CPT/HCPCS: 93225; 93306

== ENCOUNTER → 2024-07-24 08:26 | Outpatient (BNV) | payer MEDICAID, SELFPAY | PROVIDERS: PCP Registered Nurse Community Health; Visit Provider Internal Medicine | DX: I34.0 Nonrheumatic mitral (valve) insufficiency (principal) | CPT/HCPCS: 93306 ==

== ENCOUNTER 2024-11-08 12:35 | Outpatient (AMB) | payer MEDICAID, SELFPAY ==
--- NOTE | 2024-11-08 12:40 | A.OFFVIS_ITS ---
Vital Signs 11/08/24 13:07 Height 4 ft 9 in Weight 163 lb BMI 35.3 BP 122/72 Blood Pressure Location Rt brachial Position Sitting Pulse 94 Pulse Source Pulse Oximeter Pulse Oximetry (%) 97 Oxygen Delivery Method Room Air Intake Visit Reasons: Gastritis , f/u ED visit 06/05/24 Intake Note: Est pt for mgmt of chronic abd pain w/ associated gastritis hx. GAMALIEL 2021. CC: Pt denies any GI sx at this time. Has had abd pain within the last few months. Seen at [facility] ED by Dr. Medeiros and dx with Gastritis. Supervisor Cloth Winding Required: Yes Supervisor Cloth Winding Services: Supervisor Cloth Winding Present Supervisor Cloth Winding Name: Tono (GI) Tyrone Kimball [id number] Information Interpreted: clinical only Accompanied by: Self / Same As Patient Allergies No Known Allergies Allergy (Verified 11/08/24 12:40) HPI HPI Gastritis , f/u ED visit 06/05/24: Details: LAST VISIT 02/03/2022 Screen for colon cancer Patient denies any cardiac or respiratory symptoms.? Multiple GI issues, will address them before patient will go for colonoscopy. I will send her for upper endoscopy due to her long history of acid reflux. Patient currently is not on any medication. Patient also has constipation. She reports to have a constipation for long time. Denies any issues with anesthesia in the past.? Denies any history of sleep apnea.? No history infectious diseases in the past or present.? Not on any anticoagulation therapy.? No family or personal history of colon cancer or polyps.? Patient denies melena, hematochezia, unintentional weight loss or ribbon like stools.? We will discuss colonoscopy and how to prep the next visit. However paperwork about the procedure and instructions on clear liquid diet forday before the procedure was given to patient. We will schedule the procedure today. Chronic idiopathic constipation Start Senokot and docusate sodium. I will see patient in 1 month to re-evaluate. Abdominal discomfort Patient reports to have abdominal discomfort when she eats food that is spicy or fried. Patient states that the pain is in the middle of her abdomen in the umbilical area. Exam shows no hernias. Patient reports to be also very constipated. Discussed with patient FODMAP diet. Will have her take stool softener and Senokot to help her move her bowels. GERD (gastroesophageal reflux disease) Patient reports that she has a history of gastritis in the past. Unsure how she was diagnosed in the past. Patient does not remember going for upper endoscopy. She is not on any PPIs. We will do H pylori testing in the office today. Start her on low-dose PPI daily. Will re-evaluate her in a month. I will however send her for upper endoscopy. Patient is diabetic. Discussed with her avoiding dietary triggers and late night snacking. Staying upright for minimum 3 hours after meals was recommended. I will see her in 1 month, sooner on as needed basis. Patient is agreeable to this plan and verbalizes understanding of instructions. She was given the opportunity to ask questions all questions answered. ? Thank you for allowing me to participate in her care Plan Orders Orders H Pylori Breath Test Today Medications New docusate sodium 100 mg PO BEDTIME 90 caps 3RF K59.00 omeprazole 20 mg PO DAILY 90 caps 2RF K21.9 sennosides (Natural Senna Laxative) 8.6 mg PO BEDTIME 90 tabs 3RF constipation K59.00 ED VISIT 06/05/2024 ED Provider: JERRY TURNER narrative: 54 yo woman with PMH of DM, HTN, HLD, anemia, GERD here with c/o having palpitations while talking to mom yesterday. She then developed epigastric abd pain this AM and n/v x 1. She denies diarrhea. She has no sick contacts, no darinel el, no abx use. She denies CP/SOB. She has had palpitations before but she was worried about the abdominal pain and vomiting this AM. She did not take her GERD medication this AM. MD elicited complaint: abdominal pain (palpitations) Pertinent past history: other (GERD) Onset (ago): day(s) (last night) Pain Consistency: intermittent Location: epigastric Severity: moderate Quality: aching Radiation: none Migration to: no migration Exacerbating factors: eating Relieving factors: nothing Context: other (also had palpitations last night) Associated symptoms: nausea and vomiting TODAY'S VISIT Patient is here today for requested visit. Patient reports that in the past few months she has not been feeling well. Patient reports epigastric pain no matter what she eats. States that even when she is drinking water she will have epigastric pain. Patient reports abdominal bloating with almost anything she eats she nausea no vomiting. Seen in the ED back in May see above note from Dr. Medeiros. Patient denies melena, hematochezia, unintentional weight loss or ribbon like stools. Patient reports that she has been taking omeprazole for the most part she feels like it is helping. Patient reports pain in the middle of her abdomen when she is bloated. Reports constipation. Currently she is not using anything to help her move her bowels. [facility] Medical History Diabetes mellitus HTN (hypertension) Hyperlipidemia Anemia GERD (gastroesophageal reflux disease) Surgical History Hx of section Family History Father Diabetes HTN (hypertension) High cholesterol Social History Household Members: Significant Other Alcohol intake: never Patient Tobacco Use Status: Never used Tobacco Review of Systems Const Denies weight gain and Denies weight loss ENT Reports no additional complaints, Denies dysphagia and Denies odynophagia Card Reports no additional complaints Resp Reports no additional complaints GI Reports abdominal pain (Epigastric), Denies belching, Denies melena, Reports bloating, Denies change in bowel habits, Reports constipation, Denies dysphagia, Denies excessive flatus, Reports dyspepsia, Denies heartburn, Denies diarrhea, Denies loose stools, Denies nausea, Denies odynophagia and Denies vomiting Reports no additional complaints Musc Reports no additional complaints Neuro Reports no additional complaints Psych Reports no additional complaints Endo Reports no additional complaints Physical Exam Vital Signs: Last Vital Signs Pulse 94 11/08/24 13:07 BP 122/72 11/08/24 13:07 Pulse Ox 97 11/08/24 13:07 Oxygen Delivery Method Room Air 11/08/24 13:07 BMI result Body Mass Index 35.3 Const General: healthy appearing, no acute distress and well developed Nutritional Appearance: well nourished Orientation/consciousness: patient oriented x3 Resp Effort & Inspection: normal respiratory effort, able to speak in complete sentences, no tracheal deviation and symmetric chest movement Auscultation: clear to auscultation bilaterally Cardio Rate: regular rate GI Inspection: Yes normal to inspection, Yes distended and Yes obesity Palpation (GI): Soft to palpation, not firm, nontender and No hepatosplenomegaly present Auscultation: normal bowel sounds General: Yes no CVA tenderness Back/Spine/Pelvis Back: no CVA tenderness Skin General skin exam: elasticity normal, turgor normal and dry skin Neuro General: patient oriented x3 Psych Appearance: grossly normal Mental Status: mental status grossly normal Results Reviewed Results Reviewed: ABDOMINAL ULTRASOUND MAY 2024 Findings: The liver is normal in size, measuring 14.3 cm in length. Normal echogenicity without focal lesions. Hepatopetal flow is seen within the portal vein. The common bile duct is normal in diameter, measuring 0.3 cm. No cholelithiasis. There are tiny gallbladder polyps. No wall thickening or pericholecystic fluid. Negative sonographic Stone sign. The right kidney is normal in echogenicity and size, measuring 9.7 cm in length. Unremarkable limited evaluation of the pancreas. Impression: Negative for acute cholecystitis. Assessment & Plan Assessment & Plan (1) GERD (gastroesophageal reflux disease): Code(s): K21.9 - Gastro-esophageal reflux disease without esophagitis Category: Medical Qualifiers: Esophagitis presence: esophagitis presence not specified Qualified Code(s): K21.9 - Gastro-esophageal reflux disease without esophagitis (2) Constipation: Code(s): K59.00 - Constipation, unspecified Qualifiers: Constipation type: slow transit constipation Qualified Code(s): K59.01 - Slow transit constipation (3) Postprandial abdominal bloating: Code(s): R14.0 - Abdominal distension (gaseous) (4) Postprandial epigastric pain: Code(s): R10.13 - Epigastric pain Plan Patient will continue taking omeprazole. She was encouraged to avoid dietary triggers and late night snacking. Staying upright for minimum 3 hours after meals discussed with patient. Patient will start taking Dulcolax daily to help her move her bowels. Increase fluid intake and activity to promote better bowel motility. Patient will return in 2 months and we will discuss going for colonoscopy and endoscopy. She is agreeable to this plan and verbalizes understanding of instructions. She was given the opportunity to ask questions and all questions answered. Thank you for allowing me to participate in her care Medications: New bisacodyl (Dulcolax (bisacodyl)) 10 mg (2 x 5 mg) PO BEDTIME 180 tabs 4RF Coding Level of Care Code Est Pt Level 4 (13430) Complex EM visit Add On G2211 Diagnoses Gastroesophageal reflux disease, unspecified whether esophagitis present K21.9 Esophagitis presence: esophagitis presence not specified Slow transit constipation K59.01 Constipation type: slow transit constipation Postprandial abdominal bloating R14.0 Postprandial epigastric pain R10.13 Time Spent (min) 40 Comment 30 minutes spent with patient and additional 10 minutes spent reviewing her records
[2024-11-08 13:07] VITALS: BP 122/72; PULSE 94; O2SAT 97; BMI 35.3
== END 2024-11-08 13:31 | disposition home or self-care (01) ==
LOC: HO.HGI 12:36
PROVIDERS: PCP Registered Nurse Community Health; Visit Provider Nurse Practitioner Family
DX: K21.9 Gastro-esophageal reflux disease without esophagitis (principal); K59.01 Slow transit constipation; R14.0 Abdominal distension (gaseous); R10.13 Epigastric pain
CPT/HCPCS: 99214

== ENCOUNTER → 2024-11-08 12:35 | Outpatient (BNVA) | payer MEDICAID, SELFPAY | PROVIDERS: PCP Registered Nurse Community Health; Visit Provider Nurse Practitioner Family | DX: K21.9 Gastro-esophageal reflux disease without esophagitis (principal); K59.01 Slow transit constipation; R14.0 Abdominal distension (gaseous); R10.13 Epigastric pain | CPT/HCPCS: 99212 ==

== ENCOUNTER → 2025-01-16 10:37 | Outpatient (REF) | payer MEDICAID, SELFPAY ==
--- OUTSIDE RECORDS SUMMARY | 2025-01-16 11:56 | XMS_ITS | Clinical Summary ---
Author Organization [employer] Address [address] [facility] 7[address] [place] [address] Care Team Providers Care Shipping Services Sales Representative Name Role Phone Faby Gil MAXILLOFACIAL PROSTHETICS DENTIST Primary Care Provider [phone] Allergies No known active allergies Medications Blood Glucose Monitoring Suppl (FreeStyle glucose monitoring) kitIndications:Typ e 2 diabetes mellitus with hyperglycemia, without long-term current use of insulin ([facility]) Check blood sugar twice daily 1 each 04/30/19 23 Active sennosides (Senokot) 8.6 MG tablet Take 1 tablet by mouth if needed at bedtime. Active docusate sodium (Colace) 100 MG capsule Take 100 mg by mouth at bedtime. Active omeprazole (PriLOSEC) [address] capsule Take 20 mg by mouth 2 times daily. Do not crush or chew. Active fluticasone (Flonase) 50 MCG/ACT nasal sprayIndications:S easonal allergies Administer 1 spray into each nostril in the morning. Shake gently. Before first use, prime pump. After use, clean tip and replace cap. 16 g 2 08/28/19 23 Active estradiol (Estrace) 0.1 MG/GM vaginal creamIndications:V aginal atrophy Insert 500 mg intravaginally daily for 2 weeks, then decreased to 500 mg three times per week 42.5 g 12 08/28/19 23 Active Alcohol Swabs (Alcohol Prep) 70 % padsIndications:Ty pe 2 diabetes mellitus with hyperglycemia, without long-term current use of insulin (HCC) USE DIRECTED TO TEST BLOOD SUGAR TWICE DAILY 100 each 11 12/17/19 24 Active TRUEplus Lancets 33G miscIndications:Ty pe 2 diabetes mellitus with hyperglycemia, without long-term current use of insulin ([facility]) TEST BLOOD SUGAR TWICE DAILY 100 each 11 12/17/19 24 Active doxycycline (Vibramycin) 100 MG capsuleIndications :Rosacea Take 1 capsule (100 mg) by mouth 2 times daily. Take with at least 8 ounces (large glass) of water, do not lie down for 30 minutes after 60 capsule 1 02/04/20 24 Active losartan (Cozaar) 100 MG tabletIndications: Primary hypertension TAKE 1 TABLET BY MOUTH EVERY MORNING 90 tablet 3 02/16/20 24 Active spironolactone (Aldactone) 25 MG tabletIndications: Primary hypertension TAKE 1/2 TABLET BY MOUTH EVERY MORNING 45 tablet 3 02/16/20 24 Active atorvastatin (Lipitor) 40 MG tabletIndications: Mixed hyperlipidemia TAKE 1 TABLET BY MOUTH EVERY MORNING 90 tablet 1 06/07/19 25 Active metFORMIN XR (Glucophage-XR) 500 MG 24 hr tabletIndications: Type 2 diabetes mellitus with hyperglycemia, without long-term current use of insulin ([facility]) Take 1 tablet (500 mg) by mouth 2 times daily. Do not crush, chew, or split. 360 tablet 3 06/22/19 25 Active polyethylene glycol, PEG, 3350 (MiraLax) 17 GM/SCOOP powderIndications: Constipation, unspecified constipation type Take 17 g by mouth Once per day. 116 g 3 06/22/19 25 Active rosuvastatin (Crestor) 10 MG tabletIndications: Mixed hyperlipidemia Take 1 tablet (10 mg) by mouth Once per day. 90 tablet 3 07/08/19 25 026 Active glucose blood (FREESTYLE LITE) test stripIndications:T ype 2 diabetes mellitus with hyperglycemia, without long-term current use of insulin ([facility]) TEST BLOOD SUGAR TWICE DAILY 100 strip 11 07/20/19 25 Active amLODIPine (Norvasc) 10 MG tablet TAKE 1 TABLET BY MOUTH AT BEDTIME 90 tablet 1 08/19/19 25 Active triamcinolone (Kenalog) 0.1 % ointmentIndication s:Rash Apply topically 2 times daily. 30 g 09/21/19 25 Active metroNIDAZOLE (Metrogel) 0.75 % gelIndications:Ros acea Apply topically 2 times daily. 45 g 2 09/21/19 25 026 Active acetaminophen (Tylenol) 500 MG tablet Take 1 tablet (500 mg) by mouth every 6 (six) hours if needed for mild pain. 20 tablet 10/05/19 25 Active chlorthalidone (Hygroton) 25 MG tabletIndications: Primary hypertension TAKE 1 TABLET BY MOUTH EVERY MORNING 90 tablet 1 12/14/19 25 Active D3-1000 25 MCG (1000 UT) capsuleIndications :Vitamin D deficiency TAKE 1 CAPSULE BY MOUTH EVERY MORNING 90 capsule 1 12/14/19 25 Active Active Problems Problem Noted Date Diagnosed Date Dental caries into pulp 10/04/2024 Dental abscess 10/04/2024 Encounter for preventive health examination 10/2023 Assessment & Plan (11/24/2023 1:42 PM EDT): See HPI Colon cancer screening 11/24/2023 Breast cancer screening 11/24/2023 Rosacea 11/24/2023 Lesion of face 11/24/2023 Chronic pain of both feet 11/24/2023 Other chest pain 11/24/2023 Dyspnea on exertion 11/24/2023 Onychodystrophy 10/23/2022 Assessment & Plan (10/23/2022 10:35 AM EDT): Toenail clippings obtained and sent for PAS. Thumbnail represents a mixed-infection, subungually. . She will trim thumb nail back at point of attachment and will soak in White Vinegar for 5 mins a day for one-month Will notify patient when results become available. [...] ASCUS HPV neg,had follow up with Dr. Zerbe. Need records. C-scope: Refereed 09/2022 for first colonosocpy Assessment & Plan (01/21/2023 11:18 AM EDT): Declines flu vaccine and COVID booster Assessment & Plan (10/13/2022 6:53 PM EDT): Will obtain updated [facility] records for hx of abnormal pap Assessment & Plan (06/08/2022 2:17 PM EST): Patient lost to follow up with GI. Will place new referral to day Hyperlipidemia 09/16/2021 Overview (05/14/2022): Atorvastatin 40mg Assessment & Plan (01/21/2023 11:16 AM EDT): Continue current regimen Type 2 diabetes mellitus 09/16/2021 Overview (10/12/2022): Metformin 1000mg XR b.i.d monotherapy A1c 04/2022 8.9% 07/2022-7.9% Not interested in injectables Maintenance: BMP: 05/2022 Microalbumin: pending Foot Exam: 08/2022, Risk 0 Eye Exam: 04/2022, [facility] Lipid panel: 05/2022 ASCVD: 5.1% Statin: Yes ASA: No RMOERO/ARB: Yes Encouraged regular aerobic exercise for improved [...] Component Value Date HGBA1C 6.4 (A) 01/13/2023 Significant improvement with diet/exercise Continue current regimen Microalbumin ordered today Assessment & Plan (10/13/2022 6:50 PM EDT): Lab Results Component Value Date HGBA1C 6.7 (A) 10/12/2022 Well controlled Continue current regimen Assessment & Plan (08/30/2022 8:48 PM EDT): Lab Results Component Value Date HGBA1C 7.9 (H) 07/29/2022 Continue current regimen; A1c improved from 8.9% in April. DM foot exam completed today. Risk 0 Assessment & Plan (06/08/2022 2:14 PM EST): Continue metformin 1000mg b.i.d Will reapeat a1c in 1 month Assessment & Plan (05/17/2022 5:46 PM EST): Restart metofrmin 500mg b.i.d; increase to 1000mg b.i.d if tolerating well after 2 weeks Will start PA for semaglutide 3mg once daily Vitamin D deficiency 12/20/2014 Anemia 08/21/2013 Gastroesophageal reflux disease 08/21/2013 Hypertension 12/18/2011 Overview (08/30/2022): Losartan 100mg Chlorthalidone 25mg Amlodipine 10mg Spironolactone Maintenance: BMP: 05/2022 WNL Lipid Panel: 05/2022 ASCVD Risk: 5.1% EKG: Obtain baseline at f/u - Aerobic [...] Assessment & Plan (01/21/2023 11:17 AM EDT): Continue current regimen Repeat lipid panel and BMP at follow up Assessment & Plan (10/13/2022 6:49 PM EDT): Well controlled continue current regimen Assessment & Plan (08/30/2022 8:49 PM EDT): Well controlled Continue current regimen Assessment & Plan (06/08/2022 2:07 PM EST): Continue current regimen Complete previously ordered labwork Assessment & Plan (05/17/2022 5:47 PM EST): Continue current regimen Complete previously ordered labwork Encounters Date Type Department Care Team Description 12/22/[address] [facility] MEDICINE [address] [place] [address] Faby Gil FNP Chart Prep 12/15/2024 Patient Outreach [facility] MED [facility] PEDS [address] [place] [address] Faby Gil FNP Pre-visit Planning (SDOH was already completed) 12/13/2024 Refill [facility] [address] [place] [address] Faby Gil FNP Primary hypertension; Vitamin D deficiency 10/26/2024 8:40 AM EDT Office Visit [facility] WALK-IN CENTER [address] [place] [address] Jovan Dawson MD Urticaria (Primary Dx) 10/26/2024 Travel 10/25/[address] [facility] MEDICINE [address] [place] [address] Faby Gil FNP Nurse Triage from Last 3 Months Immunizations Immunization Administration Dates Next Due Hep B, adult [...] Date Recorded Patient Health Questionnaire-9 Score 0 09/20/2024 Patient Health Questionnaire-9 Score 0 09/20/2024 Last PHQ-9: Questionnaire Data Not on file 0 09/20/2024 Housing Stability Answer Date Recorded What is [...] to shut off services in your home? Yes 09/08/2024 Depression Answer Date Recorded Patient Health Questionnaire-2 Score 0 09/20/2024 Internet Access Answer Date Recorded Internet Access [...] Sign Reading Time Taken Comments Blood Pressure 112/72 10/26/2024 8:54 AM EDT Pulse 84 10/26/2024 8:54 AM EDT Temperature 36.7 C (98.1 F) 10/26/2024 8:54 AM EDT Respiratory Rate 14 10/26/2024 8:54 AM EDT Oxygen Saturation 98% 06/21/2024 8:50 AM EST Inhaled Oxygen Concentration - - Weight 73.6 kg (162 lb 3.2 oz) 10/26/2024 8:54 A M EDT Height 152.5 cm (5' 0.04 ) 10/26/2024 8:54 AM ED T Body Mass Index 31.64 10/26/2024 8:54 AM EDT Plan of Treatment Upcoming Encounters Date Type Department Care Team (Late st Contact Info) Description 01/31/2025 10:00 AM EDT Office Visit [facility] MEDICINE [address] [place] [address] [place], Faby, MAXILLOFACIAL PROSTHETICS DENTIST [address] [place] [address] 02/22/2025 12:45 PM EST Office Visit [facility] ADULT DENTAL [address] [facility] [place] [address] Corry Magallanes Health Maintenance Due Date Last Done Comments CT Colonography 1970 Colonoscopy 1971 Colorectal Cancer Screening 1971 Dental Oral Exam 1971 Dental Prophylaxis 1971 Dental X-Ray: Full Mouth 1971 FIT DNA/Cologuard 1971 FIT 1971 FOBT 1970 Sigmoidoscopy 1971 Disability Screening 1971 Mammogram 11/25/2024 11/26/2023, 060 06/2021, 09/17/2021 COVID-19 Vaccine ( season) 2024 11/14/2021, 11/14/2021, 10/29/2020, Additional history exists Influenza Vaccine (#1) 2024 , 03/05/2022, 05/10/2017, Additional history exists Diabetes: Hemoglobin A1C 12/21/2024 025, 06/21/2024, 11/24/2023, Additional history exists Diabetes: Foot Exam 06/21/2025 06/21/2024, 06/21/2024, 06/21/2024, Additional history exists Diabetes: Urine Protein Screening 06/21/2025 06/21/2024, 01/13/2023, 09/12/2021 Lipid Panel 06/21/2025 06/21/2024, 08/0 10/2023, 05/29/2022, Additional history exists Dental X-Ray: Bitewings 08/18/2025 08/17/2024 SDOH Screening 09/08/2025 09/08/2024 Alcohol/Substance Use Screening 09/20/2025 09/20/2024 Depression Screening 09/20/2025 09/20/2024, 06/04/20 25 Tobacco Screening 10/04/2025 10/04/2024 Eye Exam 08/23/2026 08/23/2024, 05/0 10/2024, 08/23/2024, Additional history exists Cervical Cancer Screening 02/02/2028 [...] 09/12/2021 Hepatitis C Screening Completed 01/13/2023, 022 HIB Vaccines Aged Out No longer eligi [...] patient's age to complete this topic Meningococcal B Vaccine Aged Out No l onger eligible based on patient's age to complete [...] Procedure Name Priority Date/Time Associated Diagnosis Comments POCT GLYCATED HEMOGLOBIN, TOTAL Routine 09/20/2024 10:25 AM EDT Type 2 diabetes mellitus with hyperglycemia, without long-term current use of insulin ([facility]) BITEWING - SINGLE RADIOGRAPHIC IMAGE Routine 08/17/2024 1:00 PM EDT Dental calculus Dental caries Periodontal disease Symptomatic irreversible pulpitis ALBUMIN, RANDOM URINE W/CREATININE Routine 06/21/2024 9:33 AM EST Type 2 diabetes mellitus with hyperglycemia, without long-term current use of insulin (CMS/HCC) LIPID PANEL, STANDARD Routine 06/21/2024 9:33 AM EST Type 2 diabetes mellitus with hyperglycemia, without long-term current use of insulin (CMS/HCC) BI MAMMOGRAM SCREENING TOMOSYNTHESIS BILATERAL Routine 11/26/2023 [...] Recently Relevant to Health Maintenance Results * (ABNORMAL) POCT HGB A1C (09/20/2024 10:25 AM EDT) Hemoglobin A1C 6.5(A) 4.0 - 6.0 % Blood 09/20/2024 10:2 5 AM EDT [facility] MAXILLOFACIAL PROSTHETICS DENTIST POINT OF CARE TEST ENTER/EDIT ORDERABLES Final Result * Albumin, Random Urine W/Creatinine (06/21/2024 9:33 AM EST) Creatinine, Urine 118.05 mg/dL [facility] Microalbumin Urine 14.0 mg/L [facility] Microalbum Creatinine Ratio Ur 11.8 <30 ug/mg cr [facility] Comment:Albumin/Creatinine R atio Reference Ranges: Normal: < 30 ug/mg creatinine Microalbuminuria: 30 - 300 ug/mg creatinineClinical Albuminuria: > 300 ug/mg creatinine Urine 06/21/2024 9:33 AM EST 06/21/2024 11:25 AM EST [facility] URINE ORDERABLES Final Re sult Performing Organization Address [facility] Co de Phone Number [facility] [address] [place] [address] [phone] * (ABNORMAL) Lipid Panel, Standard (06/21/2024 9:33 AM EST) Triglycerides 317(H) <150 mg/dL [facility] Comment:Desirable Triglyceri de: less than 150 mg/dLBorderline High Triglyceride 150-199 mg/dLHigh Triglyceride: 200-499 mg/dLVery High Triglyceride: greater than or equal to 5OO mg/dL Cholesterol 188 <200 mg/dL [facility] Comment:Desirable Cholestero l: less than 200 mg/dLBorderline High Cholesterol: 200-239 mg/dLHigh Cholesterol: greater than 239 mg/dL LDL Cholesterol Calculated 88 <100 mg/dL [facility] Comment:Desirable LDL: less than 100 mg/dLNear Optimal/Above Optimal LDL: 110- 129 mg/dLBorderline High LDL: 130-159 mg/dLHigh LDL: 160-189 mg/dLVery High LDL: greater than or equal to 190 mg/dL HDL Cholesterol 37(L) >40 mg/dL [facility] Comment:Desirable HDL: great er than 40 mg/dL Note: This HDL assay may give artificially low results in patients with liver disease. Blood Venous blood specimen / Unknown 06/21/2024 9:33 AM EST 06/21/2024 11:30 AM EST [facility] BLOOD ORDERABLES Final Re sult Performing Organization Address [facility]/ZIP Co de Phone Number [facility] [address] [place] [address] [phone] * BI Mammogram Screening Tomosynthesis Bilateral (11/26/2023 12:00 PM EDT) Anatomical Region Laterality Modality Breast Bilateral Mammography 11/26/2023 12:0 0 PM EDT Narrative 12/23/2023 12:23 PM EDT [facility] [address] [place] [address] Mammography Report Signed Patient: Belle Kenyon MR# : [id number] : 1970 Acct:[id number] Age/Sex: 53 / F ADM Date: 11/26/23 Loc: HO.MAMMO Attending Dr: Michelle Roberto MD Ordering Physician: Michelle King MD Results: 2Benign Findings Date of Service: 11/26/23 Follow Up: 1 Year From Orig ina Mammogram Procedure(s): MM tomosynthesis screening BI Accession Number(s): [id number] cc: Molly Pleitez SINKER WINDER; Michelle King MD EXAMINATION: MM SCREENING DIGITAL [...] 12/23/23 1220 DD/ 1200 TD/TT: 11/26/23 1216 Principle Industrial Hygienist: Procedure Note Donotuseinterpreter, Image - 12/23/2023 [facility] [address] [place] [address] Mammography Report Signed Patient: Belle Kenyon# : [id number] : 1970Acct:[id number] Age/Sex: 53 / FADM Date: 11/26/23 Loc: HO.MAMMO Attending Dr: Michelle Roberto MD Ordering Physician: Michelle King MDResults: 2Benign Findings Date of Service: 11/26/23Follow Up: 1 Year From Orig inal Mammogram Procedure(s): MM tomosynthesis screening BI Accession Number(s): [id number] cc: Molly Pleitez SINKER WINDER; Michelle King MD EXAMINATION: MM SCREENING DIGITAL [...] 12/23/23 1220 DD/ 1200 TD/TT: 11/26/23 1216 Principle Industrial Hygienist: Michelle Roberto MD IMG BI PROCEDURES Caden jenn Result - Final * HPV mRNA E6/E7 w/Reflex to HPV Genotypes 16, 18/45 (02/01/2023 11:15 AM EDT) HPV nRNA E6/E7 Not Detected Not Detected [facility] Comment:Methodology: Transcr iption-Mediated AmplificationThis assay detects E6/E7 viral messenger RNA (mRNA) from 14high-risk HPV types (16,18,31,33,35,39,45,51,52,56,58,59,66,68).Cervical sources are required for HPV testing.If a vaginal source from a patient who has had atotal hysterectomy with removal of cervix wassubmitted, please contact the testing laboratoryfor alternative testing options.For additional information, please refer tohttp://education.[employer]/faq/ZSL478e1(This link if provided for information/educational purposes only.)THIS TEST WAS PERFORMED AT:[employer] [place] [phone] HULL MD HPV mRNA E6/E7 TNP [facility] HPV 16 RNA TNP [facility] HPV 18/45 RNA [facility] 02/01/2023 11:1 5 AM EDT 02/02/2023 8:15 AM EDT [facility] MAXILLOFACIAL PROSTHETICS DENTIST LAB CYTOLOGY ORDERABLES Final Result [facility] [address] [place] [address] [phone] * Pap Smear (02/01/2023 11:15 AM EDT) 02/01/2023 11:1 5 AM EDT 02/02/2023 8:15 AM EDT [facility] - 02/05/2023 1:23 PM EDT ----- ------- Name: Carey TyroneBelle Age/Sex: 52/F : 1970 Unit#: [id number] Attend Dr: Faby Gil Re02/01/23 Status: [facility] ----- ------- SPEC : [id number] RECD: 02/02/23 STATUS: DARLENE PATSY NUM: [id number] DOMINGO: 02/01/23-[address]: Faby Gil ENTERED: 02/02/23-1019 SP TYPE: Pap Smr KATARZYNA DR: ORDERED: Pap Smear Interpretation Satisfactory for evaluation. No endocervical cells seen. Coccobacilli consistent with shift in vaginal jean-paul. Negative for intraepithelial lesion or malignancy. HPV mRNA E6/E7: NOT DETECTED This assay detects E6/E7 viral messenger RNA (mRNA) from 14 high-risk HPV types (16, 18, 31, 33, 35, 39, 45, 51, 52, 56, 58, 59, 66, 68) HPV testing performed by [employer] [facility], [place], [place]. See reference laboratory pion of the EMR for entire report. Clinical Information LMP: Postmenopausal Previous PAP test: Unknown date/findings Other history: Hx of abnormal pap within 3 years Material Received ThinPrep-Cervical ----- ------- Signed (signature on file) MIKE Jett ([facility]) 02/05/23 1323 ----- ------- END OF REPORT [facility] LAB CYTOLOGY ORDERABLES Final Result [facility] [address] [place] [phone] * HIV Ab/Ag ([facility]) (01/13/2023 12:24 PM EDT) [facility] HIV AB/AG Nonreactive Nonreactive [facility] Comment:HIV-1 p24 Ag and/or HIV-1/HIV-2 Ab not detected.A test result that is nonreactive does not exclude thepossibility of exposure to or infection with HIV-1 and/orHIV-2. Nonreactive results in this assay for individualswith prior exposure to HIV-1 and/or HIV-2 may be due toantigen and antibody levels that are below the limit ofdetection of this assay.[employer] HIV Ag/Ab Combo assay result andsupplemental assay results should be interpreted inconjunction with the patient's clinical presentation,history and other laboratory results. If the results areinconsistent with clinical evidence, additional testing issuggested to confirm the result. 01/13/2023 12:2 4 PM EDT 01/13/2023 3:53 PM EDT [facility] BLOOD ORDERABLES Final Re sult Performing Organization Address [facility] Co de Phone Number [facility] [address] [place] [phone] * Hepatitis Panel, General (01/13/2023 12:24 PM EDT) Hepatitis A IgM Nonreactive Nonreactive [facility] Comment:IgM antibodies to [place] V not detected; does not exclude earlyacute or recovered HAV infection. ~Hepatitis B Surface Antibody REACTIVE Nonreactive [facility] Comment:REACTIVE: > 11.99 mI U/mL Hepatitis B Core Antibody Nonreactive Nonreactive [facility] Hepatitis C Antibody Nonreactive Nonreactive [facility] Comment:Antibodies to HCV no t detected; does not exclude early acuteHCV infection. Hepatitis B Surface Ag Negative Negative [facility] Blood 01/13/2023 12:2 4 PM EDT 01/13/2023 3:53 PM EDT [facility] BLOOD ORDERABLES Final Re sult Performing Organization Address [facility] Co de Phone Number [facility] [address] [place] [phone] from Last 3 Months or Most Recently Relevant to Health Maintenance Insurance [facility] C3 HSN F[facility] STAND ADULT Care Teams Shipping Services Sales Representative Relationship Specialty Start Date End Date Faby Gil FNP [address] [place] [phone] PCP - General Family Medicine 12/15/21
--- OUTSIDE RECORDS SUMMARY | 2025-01-16 11:56 | XMS_ITS | Encounter Summary ---
Author Organization [employer] Address [address] [facility] [address] [place] [address] Care Team Providers Care Teenage Babysitter Name Role Phone [facility] Primary Care Provider [phone] Reason for Visit * Reason Onset Date Comments Nurse Triage 10/25/2024 Encounter Details Date Type Department Care Team ([facility] Contact Info) Description 10/25/2024 Telephone [facility] MEDICINE [address] [place], [place] [phone] [facility] [address] [place], [place] [phone] Nurse Triage Social History Tobacco Use Types Packs/Day Years [...] encounter Miscellaneous Notes * Telephone Encounter - Annette Rubio RN - 10/25/2024 4:18 PM EDT Triage call with [facility] [place] [address] Pt reports rash which started getting worse 3 days ago is very itchy. Pt was seen in [facility] 09/20/24 and noted a rosacea flare with prescription for metrogel given. Pt reports has been using the metrogel as prescribed but, it isn't helping. Pt has used ice and hydrocortisone cream without effect. Pt reports the rash has spread from cheeks, forehead and upper arms to lower arms, abdomen and back. Pt is advised to come to [facility] open till 8pm this evening for provider to see Pt. Or to come in the morningWIC is open 830am - 4pm. Pt agrees with disposition and will probably come to [facility] in the morning. Insurance is verified as active. Protocol Used: Rash or Redness - Widespread (Adult) Protocol-Based Disposition: See in Office or Video Visit Today or Tomorrow Video visit not offered Positive Triage Question: * Mild widespread rash (Exception: Heat rash lasting 3 days or less.) * All higher-acuity triage questions were negative Care Advice Discussed: * Reasons To Call Back - Rash becomes purple or blood-colored or blister-like - Fever occurs or severe itching - You become worse * Telephone Encounter - Tereso Hansen - 10/25/2024 3:46 PM EDT Symptom: Rash or Redness - Widespread Outcome: Schedule a same-day appointment or talk to a nurse or provider today Reason: Caller denied all higher acuity questions Please contact pt at [phone]. (Lao Speaker) documented in this encounter Plan of Treatment Upcoming Encounters Date Type Department Care Team (Late st Contact Info) Description 01/31/2025 10:00 AM EDT Office Visit [facility] MEDICINE [address] [place] [address] Faby Gil FNP [address] [place] [address] 02/22/2025 12:45 PM EST Office Visit [facility] ADULT DENTAL [address] [place] [address] Corry Magallanes documented as of this encounter Visit Diagnoses Not on filedocumented in this encounter Additional Health Concerns Assessment Noted Time PHQ-9 Depression Total Score: 0 09/21/19 25 10:19 AM EDT documented as of this encounter Care Teams Teenage Babysitter Relationship Specialty Start Date End Date Faby Gil FNP [address] [place] [address] PCP - General Family Medicine 12/15/21 documented as of this encounter
--- OUTSIDE RECORDS SUMMARY | 2025-01-16 11:56 | XMS_ITS | Encounter Summary ---
Author Organization [employer] Address [address] [facility] 7t [place] [address] Care Team Providers Care Welder Production Line Combination Name Role Phone [facility] Primary Care Provider [phone] Reason for Visit * Reason Comments Med Refill Encounter Details Date Type Department Care Team ([facility] Contact Info) Description 10/09/2022 Refill [facility] [address] [place], [place] [phone] [facility] [address] [place] [address] Primary hypertension Social History Tobacco Use Types [...] AM EDT documented as of this encounter Functional Status * Over the past 2 weeks, how often have you been bothered by any of the following problems? Question Answer Date of Assessment Author Patient Health Questionnaire-2 Score 0 10/12/2022 10:32 AM EDT Karrie Contreras MA * Over the past 2 weeks, how often have you been bothered by any of the following problems? Question Answer Date of Assessment Author Little interest or pleasure in doing things Not at all 10/12/2022 10:32 AM Karrie Ortega MA Feeling down, depressed, or hopeless Not at all 10/12/2022 10:32 AM Karrie Ortega MA Trouble falling or staying asleep, or sleeping too much Not at all 10/12/2022 10:32 AM EDT Karrie Castellon MA Feeling tired or having little energy Not at all 10/12/2022 10:32 AM Karrie Ortega MA Poor appetite or overeating Not at all 10/12/2022 10 :32 AM Karrie Ortega MA Feeling bad about yourself - or that you are a failure or have let yourself or your family down Not at all 10/12/2022 10:32 AM Karrie Ortega MA Trouble concentrating on things, such as reading the newspaper or watching television Not at all 10/12/2022 10:32 AM Karrie Ortega MA Moving or speaking so slowly that other people could have noticed? Or the opposite - being so fidgety or restless that you have been moving around a lot more than usual. Not at all 10/12/2022 10:32 AM EDKarrie Abel MA Thoughts that you would be better off or hurting yourself in some way Not at all 10/12/2022 10:32 AM Karrie Ortega MA Patient Health Questionnaire-9 Score 0 10/12/2022 10:32 AM Karrie Bray MA documented as of this encounter Plan of Treatment Upcoming Encounters Date Type Department Care Team (Late st Contact Info) Description 01/31/2025 10:00 AM EDT Office Visit [facility] [address] [place] [address] [facility] [address] [place] [address] 02/22/2025 12:45 PM EST Office Visit [facility] [address] [facility] [place] [address] Corry Magallanes documented as of this encounter Visit Diagnoses Diagnosis Primary hypertension Unspecified essential hypertension documented in this encounter Additional Health Concerns Assessment Noted Time PHQ-9 Depression Total Score: 0 08/28/19 23 2:12 PM EDT documented as of this encounter Care Teams Welder Production Line Combination Relationship Specialty Start Date End Date Faby Gil FNP [address] [facility] [place] [address] PCP - General Family Medicine 12/15/21 documented as of this encounter
== END ==
LOC: HO.SL 10:37
PROVIDERS: PCP Registered Nurse Community Health; Visit Provider Internal Medicine Cardiovascular Disease
DX: R40.0 Somnolence (principal); R06.83 Snoring; G47.33 Obstructive sleep apnea (adult) (pediatric)
CPT/HCPCS: 95806

== ENCOUNTER → 2025-01-16 11:09 | Outpatient (BNV) | payer MEDICAID, SELFPAY | PROVIDERS: PCP Registered Nurse Community Health; Visit Provider Internal Medicine | DX: G47.33 Obstructive sleep apnea (adult) (pediatric) (principal) | CPT/HCPCS: 95806 ==

== ENCOUNTER → 2025-01-31 10:00 | Outpatient (BNV) | payer MEDICAID, SELFPAY | PROVIDERS: PCP Registered Nurse; Visit Provider Radiology Body Imaging | DX: Z12.31 Encounter for screening mammogram for malignant neoplasm of breast (principal) | CPT/HCPCS: 77063; 77067 ==

== ENCOUNTER 2025-01-31 10:16 | Outpatient (REF) | payer MEDICAID, SELFPAY ==
--- OUTSIDE RECORDS SUMMARY | 2025-01-31 12:08 | XMS_ITS | Encounter Summary ---
Author Organization [employer] Address [address] [facility] 7t [place] [address] Care Team Providers Care Traffic Checker Name Role Phone [facility] Primary Care Provider [phone] Reason for Visit * Reason Onset Date Comments Nurse Triage 10/25/2024 Encounter Details Date Type Department Care Team ([facility] Contact Info) Description 10/25/[address] [facility] [address] [place], [place] [phone] [facility] [address] [place], [place] [phone] Nurse Triage Social History Tobacco Use Types [...] 10/25/2024 4:18 PM EDT Triage call with [facility] [place] [address] Pt reports rash which started getting worse [...] back. Pt is advised to come to [facility] open till 8pm this evening for provider to see Pt. Or to come [facility] is open 830am - 4pm. Pt agrees with disposition and will probably come to [facility] in the morning. Insurance is verified [...] higher acuity questions Please contact pt at [phone]. (Greek Speaker) documented in this encounter Plan of Treatment Upcoming Encounters Date Type Department Care Team (Late st Contact Info) Description 02/22/2025 12:45 PM EST Office Visit [facility] ADULT DENT[facility] [address] [place] [address] Corry Magallanes documented as of this encounter Visit Diagnoses Not on filedocumented in this encounter Additional Health Concerns Assessment Noted Time PHQ-9 Depression Total Score: 0 09/21/19 25 10:19 AM EDT documented as of this encounter Care Teams Traffic Checker Relationship Specialty Start Date End Date Faby Gil FNP [address] [place] [address] PCP - General Family Medicine 12/15/21 documented as of this encounter
--- OUTSIDE RECORDS SUMMARY | 2025-01-31 12:08 | XMS_ITS | Encounter Summary ---
Author Organization [employer] Address [address] [facility] 7t [place] [address] Care Team Providers Care Ground Products Director Name Role Phone [facility] Primary Care Provider [phone] Reason for Visit * Reason Comments Med Refill Encounter Details Date Type Department Care Team ([facility] Contact Info) Description 10/09/2022 Refill [facility] [address] [place], [place] [phone] [facility] 230 [place] [address] Primary hypertension Social History Tobacco Use Types [...] much Not at all 10/12/2022 10:32 AM Karrie Lopez MA Feeling tired or having little energy [...] usual. Not at all 10/12/2022 10:32 AM Karrie Christian MA Thoughts that you would be better off or hurting yourself in some way Not at all 10/12/2022 10:32 AM Karrie Ortega MA Patient Health Questionnaire-9 Score 0 10/12/2022 10:32 AM Karrie Bray MA documented as of this encounter Plan of Treatment Upcoming Encounters Date Type Department Care Team (Late st Contact Info) Description 02/22/2025 12:45 PM EST Office Visit [facility] ADULT D[facility] [address] [place] [address] Corry Magallanes documented as of this encounter Visit Diagnoses Diagnosis Primary hypertension Unspecified essential hypertension documented in this encounter Additional Health Concerns Assessment Noted Time PHQ-9 Depression Total Score: 0 08/28/19 23 2:12 PM EDT documented as of this encounter Care Teams Ground Products Director Relationship Specialty Start Date End Date Faby Gil FNP [address] [place] [phone] PCP - General Family Medicine 12/15/21 documented as of this encounter
--- OUTSIDE RECORDS SUMMARY | 2025-01-31 12:08 | XMS_ITS | Encounter Summary ---
Author Organization [employer] Address [address] [facility] 7t [place] [address] Care Team Providers Care Line Maintenance Technician Name Role Phone [facility] Primary Care Provider [phone] Reason for Visit * Reason Comments Med Refill Encounter Details Date Type Department Care Team ([facility] Contact Info) Description 01/26/2025 Refill [facility] [address] [place], [place] [phone] [facility] [address] [place] [address] Type 2 diabetes mellitus with hyperglycemia, without long-term current use of insulin (HCC) Social History Tobacco Use Types Packs/Day Years [...] Description 02/22/2025 12:45 PM EST Office Visit [facility] ADULT [facility] [address] [place] [address] Corry Magallanes documented as of this encounter Visit Diagnoses Diagnosis Type 2 diabetes mellitus with hyperglycemia, without long-term current use of insulin (HCC) documented in this encounter Additional Health Concerns Assessment Noted Time PHQ-9 Depression Total Score: 0 09/21/19 25 10:19 AM EDT documented as of this encounter Care Teams Line Maintenance Technician Relationship Specialty Start Date End Date Faby Gil FNP [address] [place] [address] PCP - General Family Medicine 12/15/21 documented as of this encounter
--- OUTSIDE RECORDS SUMMARY | 2025-01-31 12:08 | XMS_ITS | Clinical Summary ---
Author Organization [employer] Address [address] [facility] 7t [place] [address] Care Team Providers Care Process Control Manager Name Role Phone Faby Gil PATIENT INTAKE REPRESENTATIVE Primary Care Provider [phone] Allergies No known active allergies Medications Blood Glucose Monitoring Suppl (FreeStyle glucose monitoring) kitIndications:Ty pe 2 diabetes mellitus with hyperglycemia, without long-term current use of insulin ([facility]) Check blood sugar twice daily 1 each [...] per week 42.5 g 12 023 Active doxycycline (Vibramycin) 100 MG capsuleIndication s:Rosacea Take 1 capsule (100 mg) by mouth 2 times daily. Take with at least 8 ounces (large glass) of water, do not lie down for 30 minutes after 60 capsule 1 024 Active losartan (Cozaar) 100 MG tabletIndications :Primary hypertension TAKE 1 TABLET BY MOUTH EVERY MORNING 90 tablet 3 024 Active spironolactone (Aldactone) 25 MG tabletIndications :Primary hypertension TAKE 1/2 TABLET BY MOUTH EVERY MORNING 45 tablet 3 024 Active atorvastatin (Lipitor) 40 MG tabletIndications :Mixed hyperlipidemia TAKE 1 TABLET BY MOUTH EVERY MORNING 90 tablet 1 025 Active metFORMIN XR (Glucophage-XR) 500 MG 24 hr tabletIndications :Type 2 diabetes mellitus with hyperglycemia, without long-term current use of insulin (HCC) Take 1 tablet (500 mg) by mouth [...] without long-term current use of insulin (HCC) TEST BLOOD SUGAR TWICE DAILY 100 strip 11 025 Active amLODIPine (Norvasc) 10 MG tablet TAKE 1 TABLET BY MOUTH AT BEDTIME 90 tablet 1 025 Active triamcinolone (Kenalog) 0.1 % ointmentIndicatio ns:Rash Apply topically 2 times daily. 30 g 025 Active metroNIDAZOLE (Metrogel) 0.75 % gelIndications:Ro sacea Apply topically 2 times daily. 45 g 2 025 2025 Active acetaminophen (Tylenol) 500 MG tablet Take 1 tablet (500 mg) by mouth every 6 (six) hours if needed for mild pain. 20 tablet 025 Active chlorthalidone (Hygroton) 25 MG tabletIndications :Primary hypertension TAKE 1 TABLET BY MOUTH EVERY MORNING 90 tablet 1 025 Active D3-1000 25 MCG (1000 UT) capsuleIndication s:Vitamin D deficiency TAKE 1 CAPSULE BY MOUTH EVERY MORNING 90 capsule 1 025 Active Alcohol Swabs (Alcohol Prep) 70 % padsIndications:T ype 2 diabetes mellitus with hyperglycemia, without long-term current use of insulin (HCC) USE DIRECTED TO TEST BLOOD SUGAR TWICE DAILY 100 each 11 025 Active TRUEplus Lancets 33G miscIndications:T ype 2 diabetes mellitus with hyperglycemia, without long-term current use of insulin (HCC) USE DIRECTED TO TEST BLOOD SUGAR TWICE DAILY 100 each 11 025 Active Alcohol Swabs (Alcohol Prep) 70 % padsIndications:T ype 2 diabetes mellitus with hyperglycemia, without long-term current use of insulin (HCC) USE DIRECTED TO TEST BLOOD SUGAR TWICE DAILY 100 each 11 024 2024 Discontinued TRUEplus Lancets 33G miscIndications:T ype 2 diabetes mellitus with hyperglycemia, without long-term current use of insulin (HCC) TEST BLOOD SUGAR TWICE DAILY 100 each 11 024 2024 Discontinued Active Problems Problem [...] (10/13/2022 6:53 PM EDT): Will obtain updated [facility] records for hx of abnormal pap Assessment [...] Exam: 08/2022, Risk 0 Eye Exam: 04/2022, [facility] Lipid panel: 05/2022 ASCVD: 5.1% Statin: Yes ASA: No ROMERO/ARB: Yes Encouraged regular aerobic exercise for [...] Encounters Date Type Department Care Team Description 01/26/2025 Refill [facility] [address] [place] [address] [facility] Type 2 diabetes mellitus with hyperglycemia, without long-term current use of insulin (HCC) 12/22/2024 Telephone [facility] [address] [place] [address] [facility] Chart Prep 12/15/2024 Patient Outreach [facility] [address] [place], [place] [phone] [facility] Pre-visit Planning (SDOH was already completed) 12/13/2024 Refill [facility] [address] [place], [place] [phone] [facility] Primary hypertension; Vitamin D deficiency from Last 3 Months Immunizations Immunization Administration [...] Description 02/22/2025 12:45 PM EST Office Visit [facility] [address] [facility] [place] [address] Corry Magallanes Health Maintenance Due Date Last Done Comments CT Colonography 1970 Colonoscopy 1971 Colorectal Cancer Screening 1971 Dental Oral Exam 1971 Dental Prophylaxis 1971 Dental X-Ray: Full Mouth 1971 FIT DNA/Cologuard 1971 FIT 1971 FOBT 1971 Sigmoidoscopy 1971 Disability Screening 1971 Mammogram 11/25/2024 11/26/2023, 06/0 06/2021, 09/17/2021 COVID-19 Vaccine ( season) 2024 [...] Screening 09/20/2025 09/20/2024 Depression Screening 09/20/2025 09/20/2024, 09/21/19 25 Tobacco Screening 10/04/2025 10/04/2024 Eye Exam 08/23/2026 08/23/2024, 05/10/2024, 08/23/2024, Additional history exists Cervical Cancer Screening [...] hyperglycemia, without long-term current use of insulin ([facility]) BITEWING - SINGLE RADIOGRAPHIC IMAGE Routine 08/17/2024 [...] % Blood 09/20/2024 10:2 5 AM EDT [facility] PATIENT INTAKE REPRESENTATIVE POINT OF CARE TEST ENTER/EDIT ORDERABLES Final Result * Albumin, Random Urine W/Creatinine (06/21/2024 9:33 AM EST) Creatinine, Urine 118.05 mg/dL [facility] Microalbumin Urine 14.0 mg/L [facility] Microalbum Creatinine Ratio Ur 11.8 <30 ug/mg cr [facility] Comment:Albumin/Creatinine R atio Reference Ranges: Normal: < 30 ug/mg creatinine Microalbuminuria: 30 - 300 ug/mg creatinineClinical Albuminuria: > 300 ug/mg creatinine Urine 06/21/2024 9:33 AM EST 06/21/2024 11:25 AM EST [facility] URINE ORDERABLES Final Re sult Performing Organization Address [facility] Co de Phone Number [facility] [address] [place] [phone] [phone] * (ABNORMAL) Lipid Panel, Standard (06/21/2024 9:33 AM EST) Triglycerides 317(H) <150 mg/dL [facility] Comment:Desirable Triglyceri de: less than 150 mg/dLBorderline High Triglyceride 150-199 mg/dLHigh Triglyceride: 200-499 mg/dLVery High Triglyceride: greater than or equal to 5OO mg/dL Cholesterol 188 <200 mg/dL [facility] Comment:Desirable Cholestero l: less than 200 mg/dLBorderline High Cholesterol: 200-239 mg/dLHigh Cholesterol: greater than 239 mg/dL LDL Cholesterol Calculated 88 <100 mg/dL [facility] Comment:Desirable LDL: less than 100 mg/dLNear Optimal/Above Optimal LDL: 110- 129 mg/dLBorderline High LDL: 130-159 mg/dLHigh LDL: 160-189 mg/dLVery High LDL: greater than or equal to 190 mg/dL HDL Cholesterol 37(L) >40 mg/dL [facility] Comment:Desirable HDL: great er than 40 mg/dL Note: This HDL assay may give artificially low results in patients with liver disease. Blood Venous blood specimen / Unknown 06/21/2024 9:33 AM EST 06/21/2024 11:30 AM EST [facility] BLOOD ORDERABLES Final Re sult Performing Organization Address [facility]/ZIP Co de Phone Number [facility] [address] [place] [phone] * BI Mammogram Screening Tomosynthesis Bilateral (11/26/2023 12:00 PM EDT) Anatomical Region Laterality Modality Breast Bilateral Mammography 11/26/2023 12:0 0 PM EDT Narrative 12/23/2023 12:23 PM EDT [facility] [address] [place] [address] Mammography Report Signed Patient: Belle Kenyon MR# : [id number] : 1970 Acct:[id number] Age/Sex: 53 / F ADM Date: 11/26/23 Loc: HO.MAMMO Attending Dr: Michelle Roberto MD Ordering Physician: Michelle King MD Results: 2Benign Findings Date of Service: 11/26/23 Follow Up: 1 Year From [facility] Mammogram Procedure(s): MM tomosynthesis screening BI Accession Number(s): [id number] cc: Molly Pleitez TEST DESIGN ENGINEER; Michelle King MD EXAMINATION: MM SCREENING DIGITAL [...] 12/23/23 1220 DD/ 1200 TD/TT: 11/26/23 1216 Utilities Manager: Procedure Note Donotuseinterpreter, Image - 12/23/2023 [facility] [address] [place] [address] Mammography Report Signed Patient: Belle Kenyon# : [id number] : 1970Acct:[id number] Age/Sex: 53 / FADM Date: 11/26/23 Loc: HO.MAMMO Attending Dr: Michelle Roberto MD Ordering Physician: Michelle King MDResults: 2Benign Findings Date of Service: 11/26/23Follow Up: 1 Year From Orig inal Mammogram Procedure(s): MM tomosynthesis screening BI Accession Number(s): [id number] cc: Molly Pleitez TEST DESIGN ENGINEER; Michelle King MD EXAMINATION: MM SCREENING DIGITAL [...] 12/23/23 1220 DD/ 1200 TD/TT: 11/26/23 1216 Utilities Manager: Michelle Roberto MD IMG BI PROCEDURES Caden jenn Result - Final * HPV mRNA E6/E7 w/Reflex to HPV Genotypes 16, 18/45 (02/01/2023 11:15 AM EDT) HPV nRNA E6/E7 Not Detected Not Detected [facility] Comment:Methodology: Transcr iption-Mediated AmplificationThis assay detects E6/E7 viral messenger RNA (mRNA) from 14high-risk HPV types (16,18,31,33,35,39,45,51,52,56,58,59,66,68).Cervical sources are required for HPV testing.If a vaginal source from a patient who has had atotal hysterectomy with removal of cervix wassubmitted, please contact the testing laboratoryfor alternative testing options.For additional information, please refer tohttp://education.IMGuest/faq/AMO895n1(This link if provided for information/educational purposes only.)THIS TEST WAS PERFORMED AT:[facility] [place] [phone] HULL MD HPV mRNA E6/E7 [facility] HPV 16 RNA VTP [facility] HPV 18/45 RNA [facility] 02/01/2023 11:1 5 AM EDT 02/02/2023 8:15 AM EDT [facility] PATIENT INTAKE REPRESENTATIVE LAB CYTOLOGY ORDERABLES Final Result [facility] [address] [place] [phone] * Pap Smear (02/01/2023 11:15 AM EDT) 02/01/2023 11:1 5 AM EDT 02/02/2023 8:15 AM EDT [facility] - 02/05/2023 1:23 PM EDT ----- ------- Name: Aurelio TyroneBelle Age/Sex: 52/F : 1970 Unit#: [id number] Attend Dr: Faby Gil Re02/01/23 Status: DEP [facility] ------- SPEC : [id number] RECD: 02/02/23 STATUS: DARLENE PATSY NUM: [id number] DOMINGO: 02/01/23-[address]: Faby Gil ENTERED: 02/02/23-1019 SP TYPE: Pap Smr OT DR: ORDERED: Pap Smear Interpretation Satisfactory for evaluation. No endocervical cells seen. Coccobacilli consistent with shift in vaginal jean-paul. Negative for intraepithelial lesion or malignancy. HPV mRNA E6/E7: NOT DETECTED This assay detects E6/E7 viral messenger RNA (mRNA) from 14 high-risk HPV types (16, 18, 31, 33, 35, 39, 45, 51, 52, 56, 58, 59, 66, 68) HPV testing performed by [facility], [place], [place]. See reference laboratory pion of the EMR for entire report. Clinical Information LMP: Postmenopausal Previous PAP test: Unknown date/findings Other history: Hx of abnormal pap within 3 years Material Received ThinPrep-Cervical ----- ------- Signed (signature on file) MIKE Jett ([facility]) 02/05/23 1323 ----- ------- END OF REPORT [facility] CYTOLOGY ORDERABLES Final Result [facility] [address] [place] [phone] * HIV Ab/Ag ([facility]) (01/13/2023 12:24 PM EDT) Pathologist [facility] HIV AB/AG Nonreactive Nonreactive [facility] Comment:HIV-1 p24 Ag and/or HIV-1/HIV-2 Ab not detected.A test result that is nonreactive does not exclude thepossibility of exposure to or infection with HIV-1 and/orHIV-2. Nonreactive results in this assay for individualswith prior exposure to HIV-1 and/or HIV-2 may be due toantigen and antibody levels that are below the limit ofdetection of this assay.The [employer] HIV Ag/Ab Combo assay result andsupplemental assay results should be interpreted inconjunction with the patient's clinical presentation,history and other laboratory results. If the results areinconsistent with clinical evidence, additional testing issuggested to confirm the result. 01/13/2023 12:2 4 PM EDT 01/13/2023 3:53 PM EDT [facility] BLOOD ORDERABLES Final Re sult Performing Organization Address [facility] Co de Phone Number [facility] [address] [place] [phone] * Hepatitis Panel, General (01/13/2023 12:24 PM EDT) Hepatitis A IgM Nonreactive Nonreactive [facility] Comment:IgM antibodies to WOODALL V not detected; does not exclude earlyacute or recovered HAV infection. ~Hepatitis B Surface Antibody REACTIVE Nonreactive [facility] Comment:REACTIVE: > 11.99 mI U/mL Hepatitis B Core Antibody Nonreactive Nonreactive [facility] Hepatitis C Antibody Nonreactive Nonreactive [facility] Comment:Antibodies to HCV no t detected; does not exclude early acuteHCV infection. Hepatitis B Surface Ag Negative Negative [facility] Blood 01/13/2023 12:2 4 PM EDT 01/13/2023 3:53 PM EDT [facility] BLOOD ORDERABLES Final Re sult Performing Organization Address [facility] de Phone Number [facility] [address] [place] [phone] from Last 3 Months or Most Recently Relevant to Health Maintenance Insurance [facility] C3 HSN FULL DENTAL-[facility] MEDICAID STAND ADULT Care Teams Process Control Manager Relationship Specialty Start Date End Date Faby Gil FNP [address] [place] [phone] PCP - General Family Medicine 12/15/21
== END 2025-01-31 10:17 | disposition home or self-care (01) ==
LOC: HO.MAMMO 10:16
PROVIDERS: PCP Registered Nurse; Visit Provider Registered Nurse Community Health
DX: Z12.31 Encounter for screening mammogram for malignant neoplasm of breast (principal)
CPT/HCPCS: 77063; 77067